=== PATIENT | female | born 1940 | race Caucasian/White ===

== ENCOUNTER 2019-08-21 08:06 | Outpatient (CLI) | payer MEDICARE, OTHER, SELFPAY ==
--- NOTE | 2019-08-21 08:15 | MM_ITS ---
WS: [id number] BILATERAL DIGITAL SCREENING MAMMOGRAPHY WITH CAD CLINICAL INFORMATION: SCREENING HISTORY: Screening mammogram. No current complaints. COMPARISON: August 01, 2018 TECHNIQUE: Bilateral CC and MLO views. FINDINGS: Scattered fibroglandular densities bilaterally. Lucent centered calcifications right breast. No suspi cious focal mass, asymmetry, calcifications, or architectural distortion. No evidence of malignancy. MM/[place] [id number] IMPRESSION: BI-RADS: 2-Benign FOLLOW UP: 1 Year Follow-up Recommend return to annual screening mammography.
== END 2019-08-21 08:07 | disposition home or self-care (01) ==
LOC: RADSHAW 08:13
PROVIDERS: Family Provider Family Medicine; PCP Family Medicine; Visit Provider Family Medicine
DX: Z12.31 Encounter for screening mammogram for malignant neoplasm of breast (principal)
CPT/HCPCS: 77067

== ENCOUNTER 2020-09-07 09:38 | Outpatient (CLI) | payer MEDICARE, OTHER, SELFPAY ==
--- NOTE | 2020-09-07 09:50 | XRR_ITS ---
PROCEDURE INFORMATION: Exam: XR Left Knee Exam date and time: 09/07/2020 9:59 AM Age: 79 years old Clinical indication: Pain; Knee; Bilateral; Additional info: Bilateral knee pain TECHNIQUE: Imaging protocol: XR Left knee. Views: 3 views. COMPARISON: CR Knee 3 views, LEFT* [id number] 04/24/2019 10:38 AM FINDINGS: Bones/joints: Severe degenerative change, preferentially involving the medial tibiofemoral joint. Intra-articular calcification. Soft tissues: Unremarkable. XR/XR knee LT 3V* [id number] IMPRESSION: Severe degenerative change, preferentially involving the medial tibiofemoral joint.
--- NOTE | 2020-09-07 09:50 | XRR_ITS ---
PROCEDURE INFORMATION: Exam: XR Right Knee Exam date and time: 09/07/2020 9:59 AM Age: 79 years old Clinical indication: Pain; Knee; Bilateral; Additional info: Bilateral knee pain TECHNIQUE: Imaging protocol: XR Right knee. Views: 3 views. COMPARISON: CR Knee 3 views, RIGHT* [id number] 04/24/2019 10:32 AM FINDINGS: Bones/joints: Severe degenerative change, preferentially involve the medial tibiofemoral joint. Soft tissues: Unremarkable. Other findings: Anatomic alignment. XR/XR knee RT 3V* [id number] IMPRESSION: Severe degenerative change, preferentially involve the medial tibiofemoral joint.
== END 2020-09-07 09:39 | disposition home or self-care (01) ==
PROVIDERS: PCP Family Medicine; Visit Provider Family Medicine
DX: M25.561 Pain in right knee (principal); M25.562 Pain in left knee
CPT/HCPCS: 73562

== ENCOUNTER → 2020-10-05 12:02 | Outpatient (BNVA) | payer MEDICARE, OTHER, SELFPAY | PROVIDERS: PCP Family Medicine; Referring Provider Family Medicine; Visit Provider Specialist | DX: M17.0 Bilateral primary osteoarthritis of knee (principal) | CPT/HCPCS: 73560; 73565 ==

== ENCOUNTER 2020-10-12 07:59 | Outpatient (CLI) | payer MEDICARE, OTHER, SELFPAY ==
--- NOTE | 2020-10-12 08:05 | MM_ITS ---
WS: [id number] BILATERAL SCREENING DIGITAL MAMMOGRAM WITH CAD HISTORY: SCREENING COMPARISON: 08/21/2019 and 08/01/2018 Bilateral CC and MLO views submitted. Computer aided detection analyzed. Breast composition: There are scattered areas of fibroglandular density. No suspicious masses, microc alcifications or architectural distortion. MM/[place] [id number] IMPRESSION: BI-RADS: 1-Negative FOLLOW UP: 1 Year Follow-up
== END 2020-10-12 08:00 | disposition home or self-care (01) ==
LOC: RADSHAW 08:01
PROVIDERS: PCP Family Medicine; Visit Provider Family Medicine
DX: Z12.31 Encounter for screening mammogram for malignant neoplasm of breast (principal)
CPT/HCPCS: 77067

== ENCOUNTER → 2020-10-13 08:12 | Day surgery (SDC) | payer MEDICARE, OTHER, SELFPAY | PROVIDERS: PCP Family Medicine; Visit Provider Specialist | DX: Z01.818 Encounter for other preprocedural examination (principal); M17.11 Unilateral primary osteoarthritis, right knee | CPT/HCPCS: 93005 ==

== ENCOUNTER → 2020-10-15 13:03 | Outpatient (BNVA) | payer MEDICARE, OTHER, SELFPAY | PROVIDERS: PCP Family Medicine; Visit Provider Specialist | DX: M17.11 Unilateral primary osteoarthritis, right knee (principal); Z20.822 Contact with and (suspected) exposure to COVID-19 | CPT/HCPCS: 87635 ==

== ENCOUNTER 2020-10-20 13:04 | Observation (INO) | payer MEDICARE, OTHER, SELFPAY ==
[2020-10-13 08:56] VITALS: BMI 29.7
--- NOTE | 2020-10-13 09:05 | ECG_ITS ---
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 Measurements Intervals [place] Rate: 58 P: 79 W[place]: 132 QRS: -4 QRSD: 88 T: 24 QT: 362 QTc: 356 Interpretive Statements SINUS BRADYCARDIA LOW QRS VOLTAGE IN PRECORDIAL LEADS [QRS DEFLECTION < 1.0 mV IN CHEST LEADS] POSSIBLE RIGHT VENTRICULAR CONDUCTION DELAY [RSR (QR) IN V1/V2] No previous ECG available for comparison Electronically Signed On 10-15-2020 21:18:48 CDT by Aster Negrete M.D. [id number]
[2020-10-13 09:15] LABS: Basophils # 0.1 10^3/uL (0.0-0.1); Basophils % 1.1 %; Eosinophils # 0.1 10^3/uL (0.0-0.8); Eosinophils % 1.2 %; Hematocrit 33.9 % (37.0-47.0); Hemoglobin 10.6 g/dL (11.5-15.3); Lymphocytes # 1.7 10^3/uL (0.8-4.8); Lymphocytes % 30.4 %; Mean Corpuscular HGB Conc 31.3 g/dL (30.0-36.0); Mean Corpuscular Hemoglobin 30.5 pg (28.0-34.0); Mean Corpuscular Volume 97.7 fL (81-99); Mean Platelet Volume 10.4 fL (7.4-10.4); Monocytes # 0.4 10^3/uL (0.2-0.9); Monocytes % 7.2 %; Neutrophils # 3.41 10^3/uL (1.8-7.7); Neutrophils % 59.7 %; Nucleated Red Blood Cells % 0 %; Platelet Count 237 10^3/cmm (130-400); Red Blood Count 3.47 10^6/uL (4.1-5.3); Red Cell Distribution Width 12.7 % (12.1-15.1); White Blood Count 5.7 10^3/uL (4.0-10.0)
[2020-10-13 09:35] LABS: Alanine Aminotransferase 11 U/L (0-33); Albumin Level 4.5 g/dL (3.5-5.2); Alkaline Phosphatase 39 IU/L (35-105); Anion Gap 13.5 (5-19); Aspartate Amino Transferase 14 U/L (0-32); Blood Urea Nitrogen 33 mg/dL (8-23); Calcium 8.9 mg/dL (8.5-10.5); Carbon Dioxide 26 mmol/L (22-29); Chloride 102 mmol/L (98-107); Glucose 116 mg/dL (65-115); Osmolality Calculated 292 mOsm/kg (285-295); Potassium 4.5 mmol/L (3.5-5.1); Sodium 137 mmol/L (136-145); Total Bilirubin 0.3 mg/dL (0.15-1.2); Total Protein 7.5 g/dL (6.6-8.7)
--- NOTE | 2020-10-13 09:44 | ANES.PREANE2 ---
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 Social: Social History: No alcohol and No tobacco Exam: Pre-Anes Outpt Exam: alert, oriented x 3, clear to auscultation bilaterally and regular rate & rhythm Airway: Cervical ROM: WNL MP: 3 Dentition: Partials and Other (missing teeth) Metabolic: Metabolic: DM (off metformin now, but continuing lisinopril for kidneys) Anesthetic Plan: ASA status: 2 Anesthesia: Regional (specify below) Risk of > 500 ml blood loss (7ml/kg in children): No PFSH Anesthesia PFSH: Family History Mother Cancer Father Cancer Social History Smoking and tobacco status: never smoked Alcohol intake: never Data Anesthesia CBC & Chem 7: 10/13/20 09:00 10/13/20 09:00 Other Labs: Laboratory Results - last 48 hr 10/13/20 10/13/20 09:00 09:00 WBC 5.7 RBC 3.47 L Hgb 10.6 L Hct 33.9 L MCV 97.7 MCH 30.5 MCHC 31.3 RDW 12.7 Plt Count 237 MPV 10.4 Neut % (Auto) 59.7 Lymph % (Auto) 30.4 [place] % (Auto) 7.2 Eos % (Auto) 1.2 Baso % (Auto) 1.1 Neut # (Auto) 3.41 Lymph # (Auto) 1.7 [place] # (Auto) 0.4 Eos # (Auto) 0.1 Baso # (Auto) 0.1 Nucleated RBC % (auto) 0 Nucleated RBCs # 0.0 Sodium 137 Potassium 4.5 Chloride 102 Carbon Dioxide 26 Anion Gap 13.5 BUN 33 H Creatinine 1.0 H GFR Calculation Not Reportable Glucose 116 H Calculated Osmolality 292 Calcium 8.9 Total Bilirubin 0.3 AST 14 ALT 11 Alkaline Phosphatase 39 Total Protein 7.5 Albumin 4.5 Globulin 3.0 Cardiac Studies: No Data to Display
[2020-10-13 09:46] LABS: Add Urine Microscopic? NO; Charge for UA Resulting for Rev
[2020-10-13 10:11] LABS: Bilirubin Urine 1+ (Negative); Blood Urine Neg (Negative); Glucose Urine UA Norm (Normal); Ketones Urine Negative (Negative); Leukocyte Esterase Urine Negative (Negative); Nitrate Urine Negative (Negative); Protein Urine Neg (Negative); Specific Gravity, Urine 1.015 (1.005-1.030); Urine Appearance Clear (CLEAR); Urine Color Yellow (Yellow); Urobilinogen Urine 1 mg/dL (Negative); pH Urine 5 (5-7)
[2020-10-20] VITALS (16 sets, daily range): BP systolic 117–147; BP diastolic 66–114; PULSE 61–97; RESP 16–18; TEMP 36.1–36.7; O2SAT 93–100
[2020-10-20 08:37] LABS: Glucose Point of Care 92 mg/dL (70-110)
[2020-10-20] MEDS: acetaminophen 1,000 MG/100 ML PIGGYBACK 400 MG IV ×3 (08:39→21:07)
[2020-10-20] MEDS: sodium chloride 0.9% 1,000 ML 30 ML IV (08:39)
--- NOTE | 2020-10-20 08:47 | P.ANESUD_ITS ---
Pre-Anesthetic Update Pre-Anesthetic Assessment: Date of Surgery/Procedure: 10/20/20 Preop Sarah gnosis: Osteoarthritis right knee Proposed Procedure: Operation Date: 10/20/20 10:15 Proposed Procedures p Total Knee Arthroplasty 08390 M17.10(Right) - Susan Salas MD Any changes to Pre-Anesthetic Assessment?: No Last Intake: Intake Last Liquid Date 10/19/20 Last Liquid Time 22:00 Last Solid Date 10/19/20 Last Solid Time 22:00 Labs Last 48hrs: Laboratory Results - last 48 hr 10/20/20 08:34 POC Glucose 92 Vitals: Temperature 97.9 F 10/20/20 08:14 Temperature Source Temporal Artery S can 10/20/20 08:14 Pulse Rate 61 10/20/20 08:14 Respiratory Rate 18 10/20/20 08:14 Blood Pressure 138/114 10/20/20 08:14 Blood Pressure Cecy n 122 10/20/20 08:14 Pulse Oximetry 99 10/20/20 08:14 Oxygen Delivery Me thod 10/20/20 08:14 Exam: Pre-Anes Outpt Exam: alert, oriented x 3, clear to auscultation bilaterally and regular rate & rhythm Cardiac Studies: No Data to Display
[2020-10-20] MEDS: vancomycin 1,000 MG in sodium chloride 0.9% 250 ML 250 MG IV (08:48)
--- NOTE | 2020-10-20 10:15 | W.PM.OPSUD ---
Surgery/Procedure H&P Update DATE OF PROCEDURE: October 20, 2020 DATE H&P PERFORMED: 10/05/20 H&P UPDATE INFORMATION: I have reviewed H&P completed within last 30 days, I have examined patient prior to procedure, No changes to prior documentation and H&P is in [facility] [place] [place] EMR on date indicated PREOP DIAGNOSIS: Osteoarthritis right knee PLANNED PROCEDURE: Operation Date: 10/20/20 10:15 Proposed Procedures p Total Knee Arthroplasty 45468 M17.10(Right) - Susan Salas MD Related Problem List Diagnoses (1) Primary osteoarthritis of right knee:
[2020-10-20] MEDS: CELEcoxib 200 mg Capsule 400 MG PO (10:17)
[2020-10-20] MEDS: vancomycin 1,000 MG SDV 2000 MG IRRIGATION (11:39)
[2020-10-20] MEDS: vancomycin 1,000 MG SDV 1000 MG XX (11:39)
--- NOTE | 2020-10-20 13:32 | XRR_ITS ---
PROCEDURE INFORMATION: Exam: XR Right Knee Exam date and time: 10/20/2020 1:42 PM Age: 80 years old Clinical indication: Device placement; Joint replacement hardware; Prior surgery; Surgery date: Post-operative (0-2 days); Surgery type: Right total knee; Additional info: Status post right total knee TECHNIQUE: Imaging protocol: XR Right knee. Views: 1 or 2 views. COMPARISON: CR XR knees AP WB w BI lmt ORTH 10/05/2020 12:08 PM FINDINGS: Bones/joints: Anatomic alignment of right knee arthroplasty. Soft tissues: Postoperative skin darrion, subcutaneous emphysema, and intra-articular air. XR/XR knee RT 1-2V [id number] IMPRESSION: Anatomic alignment of right knee arthroplasty.
--- NOTE | 2020-10-20 13:33 | PM.OP ---
Operative Report Date of procedure: October 20, 2020 Pre-op Diagnosis: Osteoarthritis right knee Post-op diagnosis: same Post-op Findings: Severe degenerative osteoarthritis right knee with out flexion contracture Procedure Done: Right total knee arthroplasty Implants: The Meir total knee system with a size 4 triathlon beaded posterior stabilized femur right, a triathlon titanium tibial component size 5 beaded, a triathlon X3 posterior stabilized tibial bearing insert size 5 X 13 mm and a beaded triathlon titanium asymmetric patella size 32 x 10 mm Specimens removed/disposition: Bone, disposed of Pathology: none sent Surgeon: Susan Salas Pattern Chain Builder: [facility] operating room technicians Anesthesia: MAC (With spinal and femoral block, ASA 2) Estimated blood loss (mL): 25 Tourniquet time (min): 99 Tourniquet time: At 275 mmHg IV fluids (mL): 1,400 Urine output (mL): 275 Complications: None Findings: Severe degenerative osteoarthritis primarily involving the medial compartment, but with change in all 3 compartments and complete lack of cartilage medially. No flexion contracture was noted. Condition: stable Disposition: PACU (Then to floor for postoperative rehabilitation and monitoring under observation status) Brief History: This 80-year-old woman presented to the office with severe right knee pain which was incapacitating. She was unable to ambulate or perform reasonable activities of daily living. None of these activities were able to be accomplished comfortably. She was unresponsive to conservative measures and wished to proceed with right total knee arthroplasty risks and complications were discussed. Consents were signed preoperatively, and questions were answered. The patient wished to proceed. Procedure: The patient was brought to the operating theater, and after undergoing adequate spinal anesthesia supplemented with regional block and sedation, ASA 2, the right lower extremity was prepped with Dura-Prep and draped in usual fashion following placement of a tourniquet high on the leg. The leg was then draped free. Following prepping and draping, the leg was exsanguinated, and the tourniquet was elevated to 275 mmHg for a total tourniquet time of 99 minutes. Prior to elevation of the tourniquet, but following exposure of the site of surgery, a surgical pause was performed. At the time of the surgical pause, we confirmed the site and side of surgery. Additionally, we confirmed the appropriate and timely administration of preoperative antibiotics, vancomycin 1 g. and Transexemic acid 1 g. The availability of equipment was confirmed, and the patient's identity was verbalized as well. Following the surgical pause, an incision was made centering over the patella continuing proximally and distally as necessary to allow access to the knee joint. Dissection continued through skin and soft tissues using a scalpel. Hemostasis was obtained using electrocautery. The skin incision was followed by a median parapatellar arthrotomy. The leg was extended and the patella was everted. Following this, the leg was returned to flexed position. The distal femur was exposed, and a drill hole was made in this for placement of the distal femoral jig. The distal femoral jig was set at 5? of valgus. The distal femoral cutting block was then placed in appropriate position, and an elly wing was used to confirm an appropriate amount of distal femur would be resected. The distal femoral resection was accomplished with 8 mm of bone being resected distally. After the distal femoral resection had been accomplished, the femur was measured and it measured a size 5. Medial lateral dimension measured a size 4. An anterior step block was utilized to move the center of rotation anteriorly. This allowed us to fit a size 4 and an AP plane as well as the medial lateral. It was felt that a size 5 would be oversized for this patient. A size 4 femoral cutting block was placed in position, and we were then able to accomplish the anterior, posterior and chamfer cuts. This jig was then removed and the notch guide was placed in position. With the notch guide in appropriate position, the notch was excised including resection of the anterior and posterior cruciate ligaments. This notch was to allow for the posterior stabilized femoral component. At this point, the femur was prepared and attention was directed to the proximal tibia. The posterior knee retractor was placed along with medial and lateral retractors. Further resection of the menisci was accomplished as we had better visualization. A complete meniscectomy was performed both medially and laterally with care being taken to protect the popliteus. Retractors were then placed so that the proximal tibia was well visualized. A drill hole was then made in the tibia for placement of the intramedullary guide. This guide was placed so that approximately 2 mm of bone would be resected from the deficient medial tibial plateau. The intramedullary guide was utilized supplemented with an extramedullary guide to assure appropriate alignment for the proximal tibial resection. The proximal tibial jig was then evaluated, pinned in position, and the proximal tibial resection was accomplished without difficulty. The jig was removed, and the proximal tibia was measured. It measured a size 5. We then attempted a trial reduction with a size 5 by 11 mm insert. Osteophytes were also removed from the tibia. The femoral component was placed in position for the trial reduction, and the knee was placed through range of motion. With this, there was excellent stability with excellent varus-valgus alignment with appropriate patellar tracking. Extension was noted to be full as well. After the knee was manipulated, we were able to insert a size 5 x 13 mm insert. With this we continued to have excellent varus valgus alignment and full extension. Therefore, this was the chosen component. There was full extension and flexion without lift off and the rotation of the tibia was marked. Alignment was checked from the hip to the ankle, and this was noted to be appropriate as well. Attention was then directed to the patella. The patella was measured with a caliper. We resected sufficient patella to leave approximately 14 mm of patella remaining. Measurements of the patella then indicated that a size asymmetric 32 mm x 10 mm was the appropriate patellar size. We then placed the jig to drill for the 3 pegs of the press-fit patella, and these drill holes were made without incident. A trial patella was then placed, and the knee was placed through range of motion. The patella was noted to track nicely without evidence of subluxation. The femur was prepared for a press-fit femur by drilling 2 holes for the femoral pegs. All trial components were subsequently removed. The tibial tray was then pinned into position, and we broached the tibia for the stem of the tibial component. Subsequently, 4 drill holes were made for placement of the press-fit tibia. This was accomplished without difficulty. Care was taken to assure appropriate rotation of the tibia as well as appropriate position on the proximal tibia. The tibial tray was completely seated on the proximal tibia. Following broaching, the tibial guide was removed, and all surfaces were copiously irrigated. The surfaces were then dried and a bone plug was placed into the distal femur. Exparel was also injected at this point. The Tritanium tibia was impacted into position. The beaded femur was then impacted into position in a cementless fashion. The tibial insert was placed. The patella was pressed into position with a patellar clamp. The knee was irrigated with 20 mL of Betadine and 500 mL of normal saline, and this was allowed to remain in the knee for 3-4 minutes. The knee was then copiously irrigated and suctioned dry. Attention was then directed to closure. Closure was accomplished with 0 Vicryl in the fascial tissues. Following this, a 2-0 Monocryl was used in the subcutaneous tissues, and the skin was closed with skin darrion. A sterile dressing was then placed consisting of Dermabond Prineo, opsite, 4x4's, ABD, sterile soft roll, and an Rogers wrap. The patient was returned the Recovery Room in a satisfactory condition. X-rays were obtained there. The patient will be discharged to the floor for postoperative rehabilitation and pain management. Associated Problem List Diagnoses (1) Primary osteoarthritis of right knee:
--- NOTE | 2020-10-20 13:37 | ANES.PROC ---
Anesthesia Procedures Procedure/Date: 10/20/20 Nerve Block ^: Nerve Block 1: Main Anesthesia: spinal anesthesia block Consent: requested by attending/covering physician, risks and benefits reviewed and patient agrees to proceed Nerve block location: adductor canal Anesthesia monitors applied: pulse oximetry, EKG, BP cuff and oxygen Nerve block position: supine Anesthetic Used: ropivicaine 0.5% Amount of anesthesia used (mL): 20 Ultrasound used to: recognize landmarks and visualize and ID femerol nerve Nerve Stimulator Used?: No Interscalene/Femoral BLK: 4 stimuplex 21 g needle used for position and inplane approach and no vascular puncture identified Injection: neg aspiration of heme Patient Tolerated Procedure: well and no complications Complications: none
--- NOTE | 2020-10-20 13:39 | ANE.PACU2 ---
Inpatient post-anesthesia follow up: Airway intact: Yes Vital signs: Temperature 97.9 F Pulse Rate 61 Respiratory Rate 18 Blood Pressure 138/114 Pulse Oximetry 99 Oxygen Delivery Me thod Room Air Oxygen Flow Rate Fraction of Inspir ed Oxygen Hydration adequate: Yes Nausea and vomiting: No Pain level: 1 Mental status: Baseline
--- NOTE | 2020-10-20 13:43 | SUR.PHASEI ---
PT AWAKE ALERT TALKATIVE TAKING ICE CHIPS PT SHIVERS OCCASIONALLY, WARM BLANKETS X 3 TO PT . PT STATES SHE ALSO HAS TREMORS VSS RT KNEE DRESSING D/I WITH STRONG REGULAR PULSE NOTED TO DISTAL FOOT , FOOT PINK WARM , FOOT PUMP TO LT FOOT. [place] TO DD WITH STATLOCK TO LT THIGH YELLOW URINE NOTED TO TUBING AND BAG., X RAYS DONE AT BEDSIDE.
[2020-10-20] MEDS: lactated ringers 1,000 ML 100 ML IV (14:46)
[2020-10-20] MEDS: TRAMadol 50 mg Tablet PO (15:42)
[2020-10-20] MEDS: chlorhexidine gluconate 0.12% Btl 473 mL 30 ML MUCOUS MEM ×2 (16:46→21:04)
[2020-10-20] MEDS: oxyCODONE 5 mg IR Tab/Cap PO ×2 (16:46→20:57)
[2020-10-20] MEDS: sennosides-docusate Tablet 2 TAB PO (16:46)
[2020-10-20] MEDS: calcium carbonate 500 mg Chew Tablet 1000 MG PO (16:47)
--- NOTE | 2020-10-20 18:25 | PC.NURSE ---
SHIFT SUMMARY PATIENT HAS DONE WELL SINCE ARRIVING TO THE FLOOR FROM THE OR. VITALS STABLE. PATIENT ON ROOM AIR. PAIN CONTROLLED WITH ORAL PAIN MEDICATION. PATIENT SAT ON EDGE OF BED WITH PHYSICAL THERAPY AND BECAME DIZZY. BP CHECKED AND WAS 120'S/60'S. LAID PATIENT BACK DOWN. ASYMPTOMATIC AT THIS TIME. FLUIDS RUNNING. PATIENT TOLERATING DIET. CURRENTLY ON THE CPM. GOOD URINE OUTPUT. NO COMPLAINTS.
[2020-10-21] VITALS (8 sets, daily range): BP systolic 106–132; BP diastolic 63–73; PULSE 59–78; RESP 14–16; TEMP 37.1–37.3; O2SAT 95–96
[2020-10-21] MEDS: oxyCODONE 5 mg IR Tab/Cap PO ×3 (00:10→12:11)
[2020-10-21] MEDS: lactated ringers 1,000 ML 100 ML IV ×2 (00:50→10:22)
[2020-10-21 02:33] LABS: Basophils % 0.5 %; Eosinophils # 0.1 10^3/uL (0.0-0.8); Eosinophils % 0.9 %; Hematocrit 26.5 % (37.0-47.0); Hemoglobin 8.4 g/dL (11.5-15.3); Lymphocytes # 1.6 10^3/uL (0.8-4.8); Lymphocytes % 27.2 %; Mean Corpuscular HGB Conc 31.7 g/dL (30.0-36.0); Mean Corpuscular Hemoglobin 31.1 pg (28.0-34.0); Mean Corpuscular Volume 98.1 fL (81-99); Mean Platelet Volume 10.2 fL (7.4-10.4); Monocytes # 0.6 10^3/uL (0.2-0.9); Monocytes % 9.6 %; Neutrophils # 3.53 10^3/uL (1.8-7.7); Neutrophils % 61.5 %; Nucleated Red Blood Cells % 0 %; Platelet Count 180 10^3/cmm (130-400); Red Cell Distribution Width 12.9 % (12.1-15.1); White Blood Count 5.7 10^3/uL (4.0-10.0)
[2020-10-21 02:51] LABS: Anion Gap 10.1 (5-19); Blood Urea Nitrogen 22 mg/dL (8-23); Calcium 7.8 mg/dL (8.5-10.5); Carbon Dioxide 24 mmol/L (22-29); Chloride 108 mmol/L (98-107); Glucose 137 mg/dL (65-115); Osmolality Calculated 291 mOsm/kg (285-295); Potassium 4.1 mmol/L (3.5-5.1); Sodium 138 mmol/L (136-145)
[2020-10-21] MEDS: acetaminophen 1,000 MG/100 ML PIGGYBACK 400 MG IV (05:36)
--- NOTE | 2020-10-21 09:59 | PC.CHAP ---
Pastoral Care Encounter/Spiritual Assessment Type of Contact [] Declined jd edwards consultant visit [] Patient/Family/Request visit [] Outpatient visit [] Follow-up visit [] Physician referral [] Code/Alert [x] Routine visit [] Staff referral [] Actively dying [] Patient sleeping [] Family support [] [] Out of room [] Palliative care [] [] Receiving care in room [] Pre-surgical visit [] Trauma [] Long length of stay [] ICU visit [] Other: Relational/Emotional Strength [x] Patient feels connected with others/family/visitors/staff [] Distress [] Loneliness/isolation [] Abandonment Spirituality of Patient [x] Person of Juliana [x] Attends Mormon of their Juliana [x] Believes in Prayer [] Reads Bible or Uatsdin materials [] There are Spiritual issues to be addressed Design Coordinator Interventions [x] Prayer [x] Active listening [x] Non-anxious presence [x] Spiritual/emotional support [] Crisis/trauma care [] Spiritual counseling [] Bereavement support [] Provided bereavement packet [] Provided Bible/devotional materials [] Provided toy/stuffed animal, coloring book to patient or family member [] Provided Communion [] Anointing/[place] [] Salvation [x] Completed spiritual assessment [] Other: Impact on Illness or Injury [] Angry [] Fearful [] Anxious [] Often cries [] Exhaustion [] Unable to work [] Unable to attend rastafarian [] Unable to walk/stand [] Unable to read [] Unable to drive [] Unable to eat/drink [] Unable to sleep [] Unable to be with family [] Patient intubated [] Other: Summary Time spent with patient 15 min
[2020-10-21] MEDS: vancomycin 1,000 MG in sodium chloride 0.9% 250 ML 250 MG IV (10:13)
[2020-10-21] MEDS: calcium carbonate 500 mg Chew Tablet 1000 MG PO (10:15)
[2020-10-21] MEDS: aspirin 325 mg EC Tablet PO (10:16)
[2020-10-21] MEDS: multivitamin therapeutic Tablet 1 TAB PO (10:16)
[2020-10-21] MEDS: levothyroxine 75 mcg Tablet PO (10:17)
[2020-10-21] MEDS: iron polysaccharide complex 150 mg Capsule PO (10:18)
[2020-10-21] MEDS: cholecalciferol (vitamin D3) 1,000 unit Tablet 1000 UNIT PO (10:18)
[2020-10-21] MEDS: sennosides-docusate Tablet 2 TAB PO (10:19)
[2020-10-21] MEDS: CELEcoxib 200 mg Capsule PO (10:21)
[2020-10-21] MEDS: lisinopril 10 mg Tablet PO (10:22)
[2020-10-21] MEDS: sertraline 50 mg Tablet PO (10:23)
[2020-10-21] MEDS: TRAMadol 50 mg Tablet PO ×2 (10:23→14:30)
[2020-10-21] MEDS: chlorhexidine gluconate 0.12% Btl 473 mL 30 ML MUCOUS MEM (10:25)
[2020-10-21] MEDS: mupirocin oint 22 gm 1 APPLIC NASAL (10:25)
--- NOTE | 2020-10-21 13:21 | PM.DCS ---
Discharge Providers Date of Admission: 10/20/20 13:04 Date of Discharge: October 21, 2020 Attending Provider at Admission: Susan Salas MD Attending Provider at Discharge: Susan Salas MD Primary Care Provider: Jas Kc DO Diagnoses at Discharge Discharge Diagnosis (1) Primary osteoarthritis of right knee: Status: Acute (2) Status post total right knee replacement not using cement: Status: Acute Permanent problem details: The Meir total knee system with a size 4 triathlon beaded posterior stabilized femur right, a triathlon titanium tibial component size 5 beaded, a triathlon X3 posterior stabilized tibial bearing insert size 5 X 13 mm and a beaded triathlon titanium asymmetric patella size 32 x 10 mm Reason for Visit Reason for Visit: Right knee osteoarthritis Hospital Course Hospital Course This 80-year-old woman presented to the hospital yesterday for same-day right total knee arthroplasty. She had been seen preoperatively in the office and prepared for the surgical procedure. Risks and complications as well as expectations have been discussed at length were understood. The patient wished to proceed. She underwent uneventful right total knee arthroplasty and was brought to the surgical floor following her procedure for postoperative monitoring and pain management. On the first postoperative day, the patient was comfortable. She had minimal complaints of pain which were well managed by oral pain medications. Her dressings were removed. Her wound was benign. There was no evidence of DVT. The calf was soft. She was neurologically intact and able to lift her leg comfortably. Discussion was undertaken with the patient regarding postoperative plan, and she was in agreement with being discharged home. Physical Exam Const: COMMON NORMALS: no acute distress, average body habitus, patient oriented x3 and alert GENERAL APPEARANCE: cooperative and comfortable ORIENTATION/CONSCIOUSNESS: Yes awake HENMT: COMMON NORMALS: normocephalic and atraumatic HEAD & SCALP: normocephalic and atraumatic Eye: GENERAL EYE: appearance normal, both eyes and all related structures Chest: COMMONS NORMALS: normal inspection of the chest Resp: COMMON NORMALS: normal respiratory effort EFFORT & INSPECTION: Yes able to speak in complete sentences and Yes symmetric chest movement Extremity: RIGHT LOWER EXTREMITY: Yes knee joint Right knee: Yes inspection (The wound is benign. Dressing is intact and removed. No drainage), Yes palpation (No tenderness to palpation over the calf.), Yes ROM (Not evaluated), Yes neurovascular exam (Intact) and Yes other (No evidence of DVT) Neuro: COMMON NORMALS: patient oriented x3 SENSORIUM/ORIENTATION: Yes alert Psych: COMMON NORMALS: mental status grossly normal APPEARANCE: Yes grossly normal ATTITUDE: Yes calm and Yes engaged ATTENTION/CONCENTRATION: Yes attention grossly intact Skin: COMMON NORMALS: no rashes or lesions noted GENERAL SKIN EXAM: no rashes or lesions noted Urinary Catheter Management^: F: Cath Placed During This Visit: yes, but has since been removed by the nurse Reason for Continuing Indwelling Catheter: Decision to DC Catheter Urinary Catheter Date of Insertion: 10/20/20 Urinary Catheter Time of Insertion: 11:00 Date Urinary Catheter Removed: 10/21/20 Time Urinary Catheter Discontinued: 05:50 Discharge Data Data Completed and Pending: Completed Studies During Hospitalization Category Date Time Status XR knee RT 1-2V 7 3560 Urgent Exams 10/20/20 13:32 Completed Pending at discharge Category Date Time Status Complete Blood Co unt w/Auto AM LABS Lab 10/22/20 04:00 Ordered Complete Blood Co unt w/Auto AM LABS Lab 10/23/20 04:00 Ordered Labs from last 24 hours 10/21/20 10/21/20 02:08 02:08 WBC 5.7 RBC 2.70 L Hgb 8.4 L Hct 26.5 L MCV 98.1 MCH 31.1 MCHC 31.7 RDW 12.9 Plt Count 180 MPV 10.2 Neut % (Auto) 61.5 Lymph % (Auto) 27.2 [place] % (Auto) 9.6 Eos % (Auto) 0.9 Baso % (Auto) 0.5 Neut # (Auto) 3.53 Lymph # (Auto) 1.6 [place] # (Auto) 0.6 Eos # (Auto) 0.1 Baso # (Auto) 0.0 Nucleated RBC % (a uto) 0 Nucleated RBCs # 0.0 Sodium 138 Potassium 4.1 Chloride 108 H Carbon Dioxide 24 Anion Gap 10.1 BUN 22 Creatinine 0.9 GFR Calculation Not Reportable Glucose 137 H Calculated Osmolal ity 291 Calcium 7.8 L Vitals: Last Vital Signs Temp 99.0 F 10/21/20 10:42 Pulse 78 10/21/20 10:42 Resp 14 10/21/20 12:11 BP 132/73 10/21/20 10:42 Pulse Ox 95 10/21/20 12:11 Discharge Plan Discharge Patient Disposition: Home Health Service Condition: Stable Prescriptions: New acetaminophen 500 mg Tablet 1,000 mg PO Q8H 15 Days Qty: 90 RF: 0 aspirin 325 mg Tablet,Delayed Release (Dr/Ec) 325 mg PO BID 30 Days Qty: 60 RF: 0 oxycodone 5 mg Tablet 5 mg PO Q4H PRN (Reason: Moderate Pain) 7 Days Qty: 40 RF: 0 Continued levothyroxine 75 mcg capsule 75 mcg PO DAILY RF: 0 lisinopril 10 mg tablet 10 mg PO DAILY RF: 0 sertraline 50 mg tablet 50 mg PO DAILY PRN (Reason: Anxiety) RF: 0 alprazolam 0.5 mg tablet 0.5 mg PO DAILY PRN (Reason: Anxiety) RF: 0 Multivitamin Women 50 Plus 8 mg iron-400 mcg-300 mcg Tablet 1 tab PO DAILY RF: 0 Celebrex 200 mg capsule 200 mg PO BID Qty: 60 RF: 1 Held acetaminophen 650 mg Tablet Extended Release 650 mg PO Q12H RF: 0 Hold Instructions: Resume on 11/07/20. Discharge Orders: Discharge Order (Routine); Ordered 10/21/20 Ordered By: Susan Salas Other Ambulatory Orders: DME: Miscellaneous (Order) Location: None Selected Ordered By: Susan Salas DME: Walker (Order) Location: None Selected Ordered By: Susan Salas Referrals: Susan Salas MD [Physician] - 11/02/20 9:15 am Discharge Diet: Advance as tolerated and Usual diet Discharge Activity: Increase activity as tolerated, Limit activity as instructed, Use walker/crutches as instructed and As per PT/OT instructions Patient Instructions: Opioid Safety Activity Restrictions/Additional Instructions: Range of motion and strengthening per physical therapy. Weightbearing as tolerated. You may shower with clear plastic dressing in place. Discharge Attestations Time Spent in Discharge Care*: greater than 30 min Specific Discharge Activities: educating patient, educating and/or supporting family/caregiver, documenting/other paperwork and evaluating patient/reviewing data Quality Metrics Clinical Quality Measures During this hospital stay, did patient experience: None Coding Level of Care Code Acute Chg FW ID note Diagnoses Primary osteoarthritis of right knee M17.11 Status post total right knee replacement not using cement Z96.651
--- NOTE | 2020-10-21 15:22 | PC.NURSE ---
PT HAS DONE WELL TODAY. PT HAS BEEN UP TO THE CHAIR AT LEAST THREE TIMES TODAY. PT HAS HAD SOME COMPLAINTS OF PAIN. TRAMADOL PO AND OXYCODONE PO HAVE BOTH BEEN GIVEN TO THE PT. PT HAS TOLERATED FOOD WELL. IV WAS REMOVED, CATHETER TIP INTACT, NO BLEEDING. PT TOLERATED IV REMOVAL WELL. PT WAS GIVEN TRAMADOL RIGHT BEFORE SHE LEFT. PTS MEDS WERE CALLED TO THE IN PATIENT PHARMACY AND PT REQUESTED THAT THEY JUST GO TO THE PHARMACY AND UNDER PRESSER THE MEDICATIONS. THIS NURSE CALLED THE IN PATIENT PHARMACY AND LET THEM KNOW THE PT WOULD BE THERE TO UNDER PRESSER HER MEDS. DISCHARGE PACKET WAS GONE OVER WITH PT. NO QUESTIONS WERE ASKED. PT WHEELED AT TO FRIEND'S VEHICLE.
== END 2020-10-21 15:31 | disposition home health service (06) ==
LOC: OR 13:45 → MEDSURG 14:16
PROVIDERS: Admitting Provider Specialist; PCP Family Medicine; Visit Provider Specialist
PROC: (CPT 27447; principal; 2020-10-20 09:55)
DX: M17.11 Unilateral primary osteoarthritis, right knee (principal); E11.9 Type 2 diabetes mellitus without complications
CPT/HCPCS: 27447; 36415; 36416; 73560; 80048; 80053; 81003; 82962; 85025; 96365; 97110; 97116; 97161; 97165; 97530; C1713; C1776; C9290; G0378; J2250; J2370; J2704; J2795; J3010; J3370; J3490; J7030; J7050

== ENCOUNTER → 2020-11-02 10:17 | Outpatient (BNVA) | payer MEDICARE, OTHER, SELFPAY | PROVIDERS: PCP Family Medicine; Visit Provider Specialist | DX: Z96.651 Presence of right artificial knee joint (principal) | CPT/HCPCS: 73560; 73565 ==

== ENCOUNTER 2020-11-02 12:48 | Day surgery (SDC) | payer MEDICARE, OTHER, SELFPAY ==
[2020-11-02] VITALS (15 sets, daily range): BP systolic 123–167; BP diastolic 51–93; PULSE 69–127; RESP 12–101; TEMP 36.2–36.8; O2SAT 96–100
--- NOTE | 2020-11-02 13:04 | ED_ITS ---
HPI - Extremity Problem General: Chief complaint: Recheck/Abnormal Lab/Rx Stated complaint: RUPTURE SUTURE R LEG Time Seen by Provider: 11/02/20 13:04 Source: patient Mode of arrival: wheelchair Limitations: no limitations History of Present Illness: HPI Narrative: Patient is a 80-year-old female who presents to ED today for a complaint of right knee wound dehiscence. She unde rwent a total right knee replacement by Dr. Salas on 10/20. Patient saw Dr. Salas earlier this morning and was doing well. Surgical incision was healing well and looked clean. Duc were removed and wound was Steri-Stripped. Patient tells me she went home and was walking up her porch when she tripped on the lip of the stair and fell onto her right knee. She states she busted open her surgical incision. No other injury sustained during the fall. MD Complaint: other (surgical wound dehiscence ) Onset (ago): hour(s) Location: right and lower extremity Associated symptoms: Reports no associated symptoms; Deny chest pain or fever(s) Review of Systems Const: Denies: fever(s) Eyes: Denies: change in vision Card: Denies: chest pain Resp: Denies: dyspnea GI: Denies: abdominal pain, nausea or vomiting Musc: Reports: joint pain (R knee); Denies: neck pain, back pain or extremity pain Skin/Breast: Reports: other (wound dehiscence to right knee) Neuro: Denies: headache(s) or sensory changes PFSH ED PFSH: Family History Mother Cancer Father Cancer Social History Smoking and tobacco status: never smoked Alcohol intake: never Physical Exam Const: COMMON NORMALS: no acute distress, patient oriented x3, no limitations and alert GENERAL APPEARANCE: cooperative NUTRITIONAL APPEARANCE: overweight ORIENTATION/CONSCIOUSNESS: Yes awake, Yes oriented to person, Yes oriented to place and Yes oriented to time HENMT: COMMON NORMALS: normocephalic and atraumatic HEAD & SCALP: normocephalic and atraumatic Neck/C-Spine: COMMON NORMALS: full ROM CERVICAL SPINE: Yes cervical ROM normal, No pain with cervical ROM and No Cervical spine tenderness Resp: COMMON NORMALS: normal respiratory effort Back/Pelvis: COMMON NORMALS: thoracic and lumbar spine normal to inspection, no thoracic nor lumbar tenderness and thoraco-lumbar ROM normal Extremity: NARRATIVE EXTREMITY EXAM: patient has complete wound dehiscence to about 75% of her R knee surgical site Neuro: CHRISTOPHE COMA SCALE: document GCS findings Christophe coma scale eye opening: Spontaneous Christophe coma scale verbal response: Orientated [place] coma scale motor response: Obey commands Christophe coma scale total score: 15 COMMON NORMALS: patient oriented x3, CN's II-XII intact bilaterally, moves all extremities, no focal motor deficits and no sensory deficits noted SENSORIUM/ORIENTATION: Yes alert, Yes oriented to person, Yes oriented to place and Yes oriented to time GAIT: Yes Unable to assess gait Skin: NARRATIVE SKIN EXAM: see extremity assessment Course Consultations: Consultation #1: Dr. Salas-will take patient to surgery after she finishes with clinic, she will place surgery/pre op orders, does not want patient admitted to hospital-will go to outpt surgery or straight to pre-op and she will go home directly following the surgery Vital Signs: Vital signs: Vital Signs Temperature 98.2 F 11/02/20 12:48 Pulse Rate 71 11/02/20 12:48 Respiratory Rate 18 11/02/20 12:48 Blood Pressure 167/64 11/02/20 12:48 Pulse Oximetry 99 11/02/20 12:48 MDM - Extremity (Nontraumatic) Imaging Data^: XR R knee: Radiologist's impression: [address] [address] XRay Report Signed Patient: Priscila Gallegos Unit #: [id number] : 1940 Age/Sex: 80 / F ADM Date: 11/02/20 Loc: ER Room/Bed: Attending Dr: Ordering Provider/Ordering MD: Feli Hodge Date of Service: 11/02/20 Procedure(s): XR knee RT 3V* 76558 Accession Number(s): [id number] Report Number: [id number] WS: [id number] Exam: XR knee RT 3V* [id number] Date/Time of Exam: 11/02/2020 1:26 PM Reason For Exam: trauma/fall Comparison 11/02/2020. No acute fracture or dislocation noted. A total knee replacement is intact without evidence of fracture or loosening. There appears to be a soft tissue laceration along the medial aspect of the knee with soft tissue air. There may be air in the joint compartment. There is joint effusion with prominent collection in the suprapatellar bursa. XR/XR knee RT 3V* [id number] IMPRESSION: 1. Total knee prosthesis noted without evidence of fracture or loosening. 2. Soft tissue laceration along the medial aspect of the knee. There is soft t issue air. There may be air in the joint compartment. Joint effusion with prominent collection in the suprapatellar bursa. Dictated By: Vinod Carmona DO Signed By: Vinod Carmona DO Signed Date/Time: 11/02/20 1337 DD/ 1334 Discharge Plan Discharge Patient Disposition: Home Clinical Impression: Postoperative wound dehiscence Condition: Stable Coding Level of Care Code ED Terminal Superintendent for Chg Fwd Exam Detailed
--- NOTE | 2020-11-02 13:15 | XR_ITS ---
WS: [id number] Exam: XR knee RT 3V* [id number] Date/Time of Exam: 11/02/2020 1:26 PM Reason For Exam: trauma/fall Comparison 11/02/2020. No acute fracture or dislocation noted. A total knee replacement is intact without evidence of fractu re or loosening. There appears to be a soft tissue laceration along the medial aspect of the knee wit h soft tissue air. There may be air in the joint compartment. There is joint effusion with prominent collection in the suprapatellar bursa. XR/XR knee RT 3V* [id number] IMPRESSION: 1. Total knee prosthesis noted without evidence of fracture or loosening. 2. Soft tissue laceration along the medial aspect of the knee. There is soft ti ssue air. There may be air in the joint compartment. Joint effusion with promin ent collection in the suprapatellar bursa.
--- NOTE | 2020-11-02 15:31 | ANES.PREANE2 ---
Pre-Anesthetic Assessment Pre-Anesthetic Assessment: Height/Weight: Height 1.7 m Weight 87.09 kg Temp Pulse Resp BP Pulse Ox 98.2 F 71 18 167/64 99 11/02/20 12:48 11/02/20 12:48 11/02/20 12:48 11/02/20 12:48 11/02/20 12:48 Preop Diagnosis: Wound dehiscence Proposed Procedure: Operation Date: 11/02/20 15:20 Proposed Procedures p Debridement Lower Extremity(Right) - Susan Salas MD Social: Social History: No alcohol and No tobacco Exam: Pre-Anes Outpt Exam: alert, oriented x 3, clear to auscultation bilaterally and regular rate & rhythm Airway: Submandibular: WNL Cervical ROM: WNL MP: 2 History/ROS: No significant history except as noted Pulmonary: Pulmonary: None reported CV/HEM: CV/HEM: None reported Metabolic: Metabolic: DM Anesthetic Plan: ASA status: 2 Anesthesia: Anesthesia Evaluation and General PFSH Anesthesia PFSH: Family History Mother Cancer Father Cancer Social History Smoking and tobacco status: never smoked Alcohol intake: never Data Anesthesia Cardiac Studies: No Data to Display
[2020-11-02] MEDS: vancomycin 1,000 MG in sodium chloride 0.9% 250 ML 250 MG IV (15:59)
--- NOTE | 2020-11-02 16:00 | W.PM.OPSUD ---
Surgery/Procedure H&P Update DATE OF PROCEDURE: November 02, 2020 DATE H&P PERFORMED: 10/05/20 H&P UPDATE INFORMATION: I have reviewed H&P completed within last 30 days, I have examined patient prior to procedure and H&P is in [facility] EMR on date indicated CHANGES TO PREVIOUS DOCUMENTATION: Patient underwent total knee arthroplasty approximately 2 weeks ago. She was seen in the office today, and darrion were removed. While on her way home, she tripped on a step and fell directly onto her knee. This split her incision open causing a significant wound dehiscence. She was seen in the emergency department. She was brought in for outpatient surgical procedure to repair the wound dehiscence. PREOP DIAGNOSIS: Wound dehiscence PLANNED PROCEDURE: Operation Date: 11/02/20 15:20 Proposed Procedures p Debridement Lower Extremity(Right) - Susan Salas MD Related Problem List Diagnoses (1) Postoperative wound dehiscence: Qualifiers: Encounter type: initial encounter Qualified Code(s): T81.31XA - Disruption of external operation (surgical) wound, not elsewhere classified, initial encounter (2) Status post total right knee replacement not using cement:
[2020-11-02] MEDS: vancomycin 1,000 MG SDV 1000 MG IRRIGATION (16:39)
[2020-11-02] MEDS: vancomycin 1,000 MG SDV 1000 MG XX (16:41)
--- NOTE | 2020-11-02 17:19 | PM.OP ---
Operative Report Date of procedure: November 02, 2020 Pre-op Diagnosis: Wound dehiscence status post right total knee arthroplasty Pre-op Diagnosis: Secondary to trauma Post-op diagnosis: same Post-op Findings: Wound dehiscence with involvement into the knee joint Procedure Done: Irrigation and debridement right knee with primary wound closure Specimens removed/disposition: Cultures obtained Pathology: none sent Surgeon: Susan Salas Certified Midwife: [facility] operating room technicians Anesthesia: General (Endotracheal tube) Estimated blood loss (mL): 50 Tourniquet time (min): 0 IV fluids (mL): 800 Urine output (mL): 0 Urine output: No Morales Complications: None Findings: Wound dehiscence secondary to direct trauma to the knee with involvement into the joint Condition: stable Disposition: PACU (Then to same-day surgery for discharge to home) Brief History: This 80-year-old woman previously underwent total knee arthroplasty approximately 2 weeks ago. We discontinued her darrion today in the clinic, and Steri-Strips were placed. When she got home, she caught her foot on the step and fell directly onto the distal portion of her incision. This caused the wound dehiscence and opening of the wound. She was then transported to the emergency department by a friend. While in the emergency department, she was evaluated, and she was sent over to same-day surgery. I was involved in the decisions at this time. We elected to proceed as an outpatient surgical procedure. Risks and complications were discussed with the patient. Consents were signed. Procedure: The patient was brought to the operating theater, and after undergoing adequate general anesthesia, ASA 3, the right lower extremity was prepped with Betadine and draped in usual fashion following placement of a tourniquet high on the leg. The leg was then draped free. Following prepping and draping, we addressed the wound. We decided not to elevate the tourniquet unless necessary, and following exposure of the site of surgery, a surgical pause was performed. At the time of the surgical pause, we confirmed the site and side of surgery. Additionally, we confirmed the appropriate and timely administration of preoperative antibiotics, vancomycin 1 g. The availability of equipment was confirmed, and the patient's identity was verbalized as well. Following the surgical pause, the wound was evaluated. There was a large hematoma. This was debrided with a rongeur. Evaluation of the wound then demonstrated that distally, along the patellar tendon, the patient had also torn this repair. It actually was beside the area of the previous incision as the sutures were still in place. Cultures were obtained. We then irrigated the wound with 9 L of fluid. The final 3 L contained vancomycin. Soft tissues were debrided subcutaneous and fascial as necessary. Attention was then directed to closure. Closure was accomplished with 0 Vicryl in the fascial tissues. Following this, a 2-0 Monocryl was used in the subcutaneous tissues, and the skin was closed with skin darrion. A sterile dressing was then placed consisting of Dermabond Prineo, Telfa, 4x4's, ABD, sterile soft roll, and an Rogers wrap. The patient was returned the Recovery Room in a satisfactory condition. Patient will be discharged home to follow-up with me in the office next week. Associated Problem List Diagnoses (1) Postoperative wound dehiscence: Qualifiers: Encounter type: initial encounter Qualified Code(s): T81.31XA - Disruption of external operation (surgical) wound, not elsewhere classified, initial encounter (2) Status post total right knee replacement not using cement:
[2020-11-02] MEDS: fentaNYL 50 mcg/mL INJ 2mL IVP ×2 (17:20→17:25)
[2020-11-02] MEDS: HYDROmorphone 1 mg/mL INJ 1 mL 0.5 MG IVP ×2 (17:31→17:41)
[2020-11-02 17:50] LABS: Basophils % 0.6 %; Eosinophils # 0.1 10^3/uL (0.0-0.8); Eosinophils % 0.9 %; Hematocrit 27.4 % (37.0-47.0); Hemoglobin 8.5 g/dL (11.5-15.3); Lymphocytes # 1.3 10^3/uL (0.8-4.8); Lymphocytes % 18.2 %; Mean Corpuscular Hemoglobin 31.4 pg (28.0-34.0); Mean Corpuscular Volume 101.1 fL (81-99); Monocytes # 0.5 10^3/uL (0.2-0.9); Monocytes % 7.4 %; Neutrophils # 5.05 10^3/uL (1.8-7.7); Neutrophils % 72.3 %; Nucleated Red Blood Cells % 0 %; Platelet Count 395 10^3/cmm (130-400); Red Blood Count 2.71 10^6/uL (4.1-5.3); Red Cell Distribution Width 14.1 % (12.1-15.1)
[2020-11-02] MEDS: oxyCODONE 5 mg IR Tab/Cap PO (18:45)
[2020-11-02] MEDS: cetylpyridinium Lozenge 1 EACH MUCOUS MEM (18:51)
== END 2020-11-02 19:10 | disposition home or self-care (01) ==
LOC: ER 13:36 → OPS 13:51
PROVIDERS: Emergency Provider Physician Assistant; PCP Family Medicine; Visit Provider Specialist
PROC: (CPT 11043; principal; 2020-11-02 15:20)
DX: T81.31XA Disruption of external operation (surgical) wound, not elsewhere classified, initial encounter (principal); Z96.651 Presence of right artificial knee joint; E11.622 Type 2 diabetes mellitus with other skin ulcer
CPT/HCPCS: 11043; 73560; 73562; 73565; 85025; 87070; 87075; 96365; 96375; J1170; J2405; J2704; J2710; J3010; J3370; J3490; J7050

== ENCOUNTER → 2020-11-09 13:05 | Outpatient (BNVA) | payer MEDICARE, OTHER, SELFPAY | PROVIDERS: PCP Family Medicine; Visit Provider Specialist | DX: M17.11 Unilateral primary osteoarthritis, right knee (principal); T81.31XA Disruption of external operation (surgical) wound, not elsewhere classified, initial encounter; Z96.651 Presence of right artificial knee joint; X58.XXXA Exposure to other specified factors, initial encounter | CPT/HCPCS: 73560; 73565 ==

== ENCOUNTER → 2020-11-23 15:13 | Outpatient (BNVA) | payer MEDICARE, OTHER, SELFPAY | PROVIDERS: PCP Family Medicine; Visit Provider Specialist | DX: Z96.651 Presence of right artificial knee joint (principal); T81.31XA Disruption of external operation (surgical) wound, not elsewhere classified, initial encounter; M17.11 Unilateral primary osteoarthritis, right knee | CPT/HCPCS: 73560; 73565 ==

== ENCOUNTER 2020-12-10 06:00 | Outpatient (RCR) | payer MEDICARE, OTHER, SELFPAY | END 2021-01-06 23:59 | disposition home or self-care (01) | LOC: SPT 06:00 | PROVIDERS: PCP Family Medicine; Referring Provider Specialist; Visit Provider Specialist | DX: Z47.1 Aftercare following joint replacement surgery (principal); Z96.651 Presence of right artificial knee joint | CPT/HCPCS: 97110; 97161 ==

== ENCOUNTER → 2020-12-21 08:45 | Outpatient (BNVA) | payer MEDICARE, OTHER, SELFPAY | PROVIDERS: PCP Family Medicine; Visit Provider Specialist | DX: Z96.651 Presence of right artificial knee joint (principal); Z48.89 Encounter for other specified surgical aftercare; M17.11 Unilateral primary osteoarthritis, right knee | CPT/HCPCS: 73560; 73565 ==

== ENCOUNTER → 2020-12-23 12:38 | Outpatient (BNVA) | payer MEDICARE, OTHER, SELFPAY | PROVIDERS: PCP Family Medicine; Visit Provider Specialist | DX: M17.12 Unilateral primary osteoarthritis, left knee (principal); Z01.818 Encounter for other preprocedural examination; Z20.822 Contact with and (suspected) exposure to COVID-19 | CPT/HCPCS: 87635 ==

== ENCOUNTER 2020-12-29 15:10 | Observation (INO) | payer MEDICARE, OTHER, SELFPAY ==
[2020-12-23 11:17] VITALS: BMI 29.4
[2020-12-23 11:45] LABS: Basophils % 0.5 %; Eosinophils # 0.1 10^3/uL (0.0-0.8); Eosinophils % 1.6 %; Hematocrit 33.5 % (37.0-47.0); Hemoglobin 10.5 g/dL (11.5-15.3); Lymphocytes # 1.8 10^3/uL (0.8-4.8); Lymphocytes % 29.1 %; Mean Corpuscular HGB Conc 31.3 g/dL (30.0-36.0); Mean Corpuscular Hemoglobin 30.9 pg (28.0-34.0); Mean Corpuscular Volume 98.5 fL (81-99); Mean Platelet Volume 10.2 fL (7.4-10.4); Monocytes # 0.5 10^3/uL (0.2-0.9); Monocytes % 8.6 %; Neutrophils # 3.64 10^3/uL (1.8-7.7); Neutrophils % 59.9 %; Nucleated Red Blood Cells % 0 %; Platelet Count 236 10^3/cmm (130-400); Red Cell Distribution Width 13.4 % (12.1-15.1); White Blood Count 6.1 10^3/uL (4.0-10.0)
[2020-12-23 12:08] LABS: Alanine Aminotransferase 11 U/L (0-33); Albumin Level 4.4 g/dL (3.5-5.2); Alkaline Phosphatase 47 IU/L (35-105); Anion Gap 13.5 (5-19); Aspartate Amino Transferase 14 U/L (0-32); Blood Urea Nitrogen 30 mg/dL (8-23); Calcium 8.4 mg/dL (8.5-10.5); Carbon Dioxide 25 mmol/L (22-29); Chloride 105 mmol/L (98-107); Globulin 2.6 g/dL (1.3-4.6); Glucose 100 mg/dL (65-115); Osmolality Calculated 294 mOsm/kg (285-295); Potassium 4.5 mmol/L (3.5-5.1); Sodium 139 mmol/L (136-145); Total Bilirubin 0.2 mg/dL (0.15-1.2)
[2020-12-29] VITALS (24 sets, daily range): BP systolic 112–168; BP diastolic 57–115; PULSE 62–97; RESP 16–20; TEMP 36.5–37.4; O2SAT 96–100; BMI 29.4
[2020-12-29] MEDS: sodium chloride 0.9% 1,000 ML 30 ML IV (08:34)
[2020-12-29] MEDS: acetaminophen 1,000 MG/100 ML PIGGYBACK 400 MG IV ×2 (08:37→17:08)
[2020-12-29] MEDS: vancomycin 1,000 MG in sodium chloride 0.9% 250 ML 250 MG IV (08:37)
--- NOTE | 2020-12-29 09:03 | ANES.PREANE2 ---
Pre-Anesthetic Assessment Pre-Anesthetic Assessment: Height/Weight: Height 1.7 m Weight 85.275 kg Temp Pulse Resp BP Pulse Ox 97.7 F 70 18 168/109 100 12/29/20 08:21 12/29/20 08:21 12/29/20 08:21 12/29/20 08:21 12/29/20 08:21 Preop Diagnosis: Wound dehiscence status post right total knee arthroplasty Proposed Procedure: Operation Date: 12/29/20 10:20 Proposed Procedures p left Total Knee Arthroplasty 02995 m17.10(Left) - Susan Salas MD Familial anesthetic complications: None Was Beta Bernarda taken within 24 hours: N/A Was Clonidine taken within 24 hours: N/A Last intake: Intake Last Liquid Date 12/28/20 Last Liquid Time 23:59 Last Solid Date 12/28/20 Last Solid Time 19:30 Social: Social History: No alcohol and No tobacco Exam: Pre-Anes Outpt Exam: alert, oriented x 3, clear to auscultation bilaterally and regular rate & rhythm Airway: Cervical ROM: WNL MP: 3 Dentition: Full Metabolic: Metabolic: DM and Thyroid Anesthetic Plan: ASA status: 2 Anesthesia: General and Regional (specify below) (adductor) Risk of > 500 ml blood loss (7ml/kg in children): No Meds/Allergies Current Medications: Current Medications Generic Name Dose Route Start Last Admin Trade Name Freq PRN Reason Stop Dose Admin Sodium Chloride 1,000 mls @ 30 ml s/hr 12/29/20 08:15 12/29/20 08:34 Sodium Chloride 0.9% IV 12/30/20 08:14 30 mls/hr .Q24H GEORGE Administration Vancomycin HCl 1,0 00 mg/ 250 mls @ 250 mls /hr 12/29/20 08:13 12/29/20 08:37 Sodium Chloride IV 12/29/20 09:12 250 mls/hr 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
--- NOTE | 2020-12-29 09:04 | ANES.PROC ---
Anesthesia Procedures Procedure/Date: 12/29/20 Nerve Block ^: Nerve Block 1: Main Anesthesia: general anesthesia Time Out Performed: Yes Consent: requested by attending/covering physician, from patient, from other, risks and benefits reviewed and patient agrees to proceed Nerve block location: adductor canal (L) Anesthesia monitors applied: pulse oximetry, EKG, BP cuff and oxygen Nerve block position: supine Anesthetic Used: ropivicaine 0.5% and with decadron (4 mg) Amount of anesthesia used (mL): 30 Ultrasound used to: visualize and ID femerol nerve Nerve Stimulator Used?: No Interscalene/Femoral BLK: 4 stimuplex 21 g needle used for position and inplane approach and visualize local anesthetic spread Injection: neg aspiration of heme Patient Tolerated Procedure: well Complications: none
--- NOTE | 2020-12-29 10:23 | P.HPUD_ITS ---
Surgery/Procedure H&P Update DATE OF PROCEDURE: December 29, 2020 DATE H&P PERFORMED: 12/21/20 H&P UPDATE INFORMATION: I have reviewed H&P completed within last 30 days, I have examined patient prior to procedure, No changes to prior documentation and H&P is in [facility] [place] on date indicated PREOP DIAGNOSIS: Left Knee Osteoarthritis PLANNED PROCEDURE: Operation Date: 12/29/20 10:20 Proposed Procedures p left Total Knee Arthroplasty 36970 m17.10(Left) - Susan Salas MD Related Problem List Diagnoses (1) Primary osteoarthritis of left knee:
--- NOTE | 2020-12-29 11:20 | P.OP_ITS ---
Operative Report Date of procedure: December 29, 2020 Pre-op Diagnosis: Left Knee Osteoarthritis Post-op diagnosis: same Post-op Findings: Severe DJD Left Knee Procedure Done: Left total knee arthroplasty Implants: The [place] total knee system with a size 5 triathlon beaded posterior stabilized femur left, a triathlon titanium tibial component size 5 beaded, a triathlon X3 posterior stabilized tibial bearing insert size 5 X 11 mm and a beaded triathlon titanium asymmetric patella size 32 x 10 mm Specimens removed/disposition: Bone, disposed of Pathology: none sent Surgeon: Susan Salas Registered Public Health Nurse: [facility] operating room technicians Anesthesia: General (ET tube with regional block following failed spinal, ASA 2) Estimated blood loss (mL): 25 Tourniquet time (min): 107 Tourniquet time: At 300 mmHg IV fluids (mL): 1,300 Urine output (mL): 400 Complications: None Findings: Severe degenerative osteoarthritic changes involving the patellofemoral and medial compartments. Condition: stable Disposition: PACU (Then to floor for postoperative rehabilitation) Brief History: This 80-year-old woman presented to the office with severe left knee pain which was incapacitating. She was unable to ambulate or perform reasonable activities of daily living. None of these activities were able to be accomplished comfortably. She is status post right total knee arthroplasty, and she feels that the left knee is limiting her ability to fully rehab her previous right knee. She was unresponsive to conservative measures and wished to proceed with left total knee arthroplasty. Risks and complications were discussed. Consents were signed preoperatively, and questions were answered. The patient wished to proceed. Procedure: The patient was brought to the operating theater, and after undergoing adequate general anesthesia supplemented with regional block and sedation, ASA 2, the left lower extremity was prepped with Dura-Prep and draped in usual fashion following placement of a tourniquet high on the leg. General anesthetic per endotracheal tube followed a failed attempt at spinal anesthesia. The leg was then draped free. Following prepping and draping, the leg was exsanguinated, and the tourniquet was elevated to 300 mmHg for a total tourniquet time of 107 minutes. Prior to elevation of the tourniquet, but following exposure of the site of surgery, a surgical pause was performed. At the time of the surgical pause, we confirmed the site and side of surgery. Additionally, we confirmed the appropriate and timely administration of preoperative antibiotics, vancomycin 1 g. and Transexemic acid 1 g. The availability of equipment was confirmed, and the patient's identity was verbalized as well. Following the surgical pause, an incision was made centering over the patella continuing proximally and distally as necessary to allow access to the knee joint. Dissection continued through skin and soft tissues using a scalpel. Hemostasis was obtained using electrocautery. The skin incision was followed by a median parapatellar arthrotomy. The leg was extended and the patella was everted. Following this, the leg was returned to flexed position. The distal femur was exposed, and a drill hole was made in this for placement of the distal femoral jig. The distal femoral jig was set at 5? of valgus. The distal femoral cutting block was then placed in appropriate position, and an elly wing was used to confirm an appropriate amount of distal femur would be resected. The distal femoral resection was accomplished with 8 mm of bone being resected distally. After the distal femoral resection had been accomplished, the femur was measured and it measured a size 5. Medial lateral dimension measured a size 5. A size 5 femoral cutting block was placed in position, and we were then able to accomplish the anterior, posterior and chamfer cuts. This jig was then removed and the notch guide was placed in position. With the notch guide in appropriate position, the notch was excised including resection of the anterior and posterior cruciate ligaments. This notch was to allow for the posterior stabilized femoral component. At this point, the femur was prepared and attention was directed to the proximal tibia. The posterior knee retractor was placed along with medial and lateral retractors. Further resection of the menisci was accomplished as we had better visualization. A complete meniscectomy was performed both medially and laterally with care being taken to protect the popliteus. Retractors were then placed so that the proximal tibia was well visualized. A drill hole was then made in the tibia for placement of the intramedullary guide. This guide was placed so that approximately 2 mm of bone would be resected from the deficient medial tibial plateau. The intramedullary guide was utilized supplemented with an extramedullary guide to assure appropriate alignment for the proximal tibial resection. The proximal tibial jig was then evaluated, pinned in position, and the proximal tibial resection was accomplished without difficulty. The jig was removed, and the proximal tibia was measured. It measured a size 5. We then attempted a trial reduction with a size 5 by 9 mm insert. Osteophytes were also removed from the tibia. The femoral component was placed in position for the trial reduction, and the knee was placed through range of motion. With this, there was excellent stability with excellent varus-valgus alignment with appropriate patellar tracking. Extension was noted to be full as well. After the knee was manipulated, we were able to insert a size 5 x 11 mm insert. With this we continued to have excellent varus valgus alignment and full extension. Therefore, this was the chosen component. There was full extension and flexion without lift off and the rotation of the tibia was marked. Alignment was checked from the hip to the ankle, and this was noted to be appropriate as well. Attention was then directed to the patella. The patella was measured with a caliper. We resected sufficient patella to leave approximately 14 mm of patella remaining. Measurements of the patella then indicated that a size asymmetric 32 mm x 10 mm was the appropriate patellar size. We then placed the jig to drill for the 3 pegs of the press-fit patella, and these drill holes were made without incident. A trial patella was then placed, and the knee was placed through range of motion. The patella was noted to track nicely without evidence of subluxation. The femur was prepared for a press-fit femur by drilling 2 holes for the femoral pegs. All trial components were subsequently removed. The tibial tray was then pinned into position, and we broached the tibia for the stem of the tibial component. Subsequently, 4 drill holes were made for placement of the press-fit tibia. This was accomplished without difficulty. Care was taken to assure appropriate rotation of the tibia as well as appropriate position on the proximal tibia. The tibial tray was completely seated on the proximal tibia. Following broaching, the tibial guide was removed, and all surfaces were copiously irrigated. The surfaces were then dried and a bone plug was placed into the distal femur. Exparel was also injected at this point. The Tritanium tibia was impacted into position. The beaded femur was then impacted into position in a cementless fashion. The tibial insert was placed. The patella was pressed into position with a patellar clamp. The knee was irrigated with 20 mL of Betadine and 500 mL of normal saline, and this was allowed to remain in the knee for 3-4 minutes. The knee was then copiously irrigated and suctioned dry. Attention was then directed to closure. Closure was accomplished with 0 Vicryl in the fascial tissues. Following this, a 2-0 Monocryl was used in the subcutaneous tissues, and the skin was closed with skin darrion. A sterile dressing was then placed consisting of Dermabond Prineo, Telfa, 4x4's, sterile soft roll, and an Rogers wrap. The patient was returned the Recovery Room in a satisfactory condition. X-rays were obtained there. The patient will be discharged to the floor for postoperative rehabilitation and pain management. Associated Problem List Diagnoses (1) Primary osteoarthritis of left knee:
[2020-12-29] MEDS: vancomycin 1,000 MG SDV 1000 MG (12:29)
[2020-12-29] MEDS: ceFAZolin 1,000 mg SDV 2000 MG (12:32)
--- NOTE | 2020-12-29 14:15 | XRR_ITS ---
PROCEDURE INFORMATION: Exam: XR Left Knee Exam date and time: 12/29/2020 2:15 PM Age: 80 years old Clinical indication: Device placement; Joint replacement hardware; Prior surgery; Surgery date: Post-operative (0-2 days); Additional info: S/P tka, 2 view TECHNIQUE: Imaging protocol: XR Left knee. Views: 1 or 2 views. COMPARISON: CR XR knees AP WB w RT lmt ORTH 11/23/2020 3:19 PM FINDINGS: Bones/joints: Anatomic alignment of left knee arthroplasty. Soft tissues: Skin darrion. Postoperative subcutaneous emphysema and intra-articular air. XR/XR knee LT 1-2V [id number] IMPRESSION: Anatomic alignment of left knee arthroplasty.
[2020-12-29] MEDS: fentaNYL 50 mcg/mL INJ 2mL IVP (14:43)
[2020-12-29] MEDS: meperidine 50 mg/mL INJ 12.5 MG IVP (15:13)
--- NOTE | 2020-12-29 15:32 | SUR.PHASEI ---
WAITING TO GIVE REPORT TO FLOOR, PT AWAKE ALERT TALKATIVE STATES PAIN IS GONE NOW, PT NOT SHIVERING , PT GIVEN WARM BLANKETS X 5 EARLIER BUT CONTINUED TO SHIVER SEE DEMEROL GIVEN EARLIER. LT KNEE DRESSING D/I FIRST ICE IN PLACE DISTAL FOOT PINK WARM CAP REFILL LESS THAN 3 SECONDS, DISTAL PULSE NOTED AND MARKED.[place] CATHETER PATENT TO DD YELLOW URINE.
--- NOTE | 2020-12-29 15:53 | ANE.PACU2 ---
Inpatient post-anesthesia follow up: Airway intact: Yes Vital signs: Temperature 98.2 F Pulse Rate 81 Respiratory Rate 17 Blood Pressure 161/77 Pulse Oximetry 96 Oxygen Delivery Me thod Room Air Oxygen Flow Rate 8 Fraction of Inspir ed Oxygen Hydration adequate: Yes Nausea and vomiting: No Pain level: 4 Mental status: Baseline
[2020-12-29] MEDS: oxyCODONE 5 mg IR Tab/Cap PO (17:06)
[2020-12-29] MEDS: chlorhexidine gluconate 0.12% Btl 473 mL 30 ML MUCOUS MEM ×2 (17:10→21:57)
[2020-12-29] MEDS: calcium carbonate 500 mg Chew Tablet 1000 MG PO (17:11)
[2020-12-29] MEDS: iron polysaccharide complex 150 mg Capsule PO (17:11)
[2020-12-29] MEDS: mupirocin oint 22 gm 1 APPLIC NASAL (17:11)
[2020-12-29] MEDS: CELEcoxib 200 mg Capsule PO (17:11)
[2020-12-29] MEDS: sennosides-docusate Tablet 2 TAB PO (17:12)
[2020-12-30] VITALS (7 sets, daily range): BP systolic 123–146; BP diastolic 63–72; PULSE 65–72; RESP 16–18; TEMP 36.8–37.2; O2SAT 95–99
[2020-12-30] MEDS: oxyCODONE 5 mg IR Tab/Cap PO ×3 (01:03→13:33)
[2020-12-30] MEDS: acetaminophen 1,000 MG/100 ML PIGGYBACK 400 MG IV ×2 (01:04→08:43)
[2020-12-30 02:59] LABS: Basophils % 0.5 %; Hemoglobin 8.7 g/dL (11.5-15.3); Lymphocytes # 1.5 10^3/uL (0.8-4.8); Lymphocytes % 17.9 %; Mean Corpuscular HGB Conc 31.1 g/dL (30.0-36.0); Mean Corpuscular Hemoglobin 30.5 pg (28.0-34.0); Mean Corpuscular Volume 98.2 fL (81-99); Mean Platelet Volume 10.8 fL (7.4-10.4); Neutrophils # 5.97 10^3/uL (1.8-7.7); Neutrophils % 69.3 %; Nucleated Red Blood Cells % 0 %; Platelet Count 209 10^3/cmm (130-400); Red Blood Count 2.85 10^6/uL (4.1-5.3); Red Cell Distribution Width 13.4 % (12.1-15.1); White Blood Count 8.6 10^3/uL (4.0-10.0)
[2020-12-30 03:40] LABS: Blood Urea Nitrogen 25 mg/dL (8-23); Calcium 8.2 mg/dL (8.5-10.5); Carbon Dioxide 21 mmol/L (22-29); Chloride 106 mmol/L (98-107); Glucose 158 mg/dL (65-115); Osmolality Calculated 296 mOsm/kg (285-295); Sodium 139 mmol/L (136-145)
[2020-12-30] MEDS: lisinopril 10 mg Tablet PO (08:42)
[2020-12-30] MEDS: iron polysaccharide complex 150 mg Capsule PO (08:42)
[2020-12-30] MEDS: CELEcoxib 200 mg Capsule PO (08:42)
[2020-12-30] MEDS: aspirin 325 mg EC Tablet PO (08:42)
[2020-12-30] MEDS: levothyroxine 75 mcg Tablet PO (08:42)
[2020-12-30] MEDS: sennosides-docusate Tablet 2 TAB PO (08:42)
[2020-12-30] MEDS: multivitamin therapeutic Tablet 1 TAB PO (08:42)
[2020-12-30] MEDS: cholecalciferol (vitamin D3) 1,000 unit Tablet 1000 UNIT PO (08:42)
--- NOTE | 2020-12-30 10:24 | PC.CHAP ---
Pastoral Care Encounter/Spiritual Assessment Type of Contact [] Declined wire puller visit [] Patient/Family/Request visit [] Outpatient visit [] Follow-up visit [] Physician referral [] Code/Alert [x] Routine visit [] Staff referral [] Actively dying [] Patient sleeping [] Family support [] [] Out of room [] Palliative care [] [] Receiving care in room [] Pre-surgical visit [] Trauma [] Long length of stay [] ICU visit [] Other: Relational/Emotional Strength [x] Patient feels connected with others/family/visitors/staff [] Distress [] Loneliness/isolation [] Abandonment Spirituality of Patient [x] Person of Juliana x[x] Attends Confucianist of their Juliana [x] Believes in Prayer [] Reads Bible or Jain materials [] There are Spiritual issues to be addressed 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 Interventions [x] Prayer [x] Active listening [] Non-anxious presence [] Spiritual/emotional support [] Crisis/trauma care [] Spiritual counseling [] Bereavement support [] Provided bereavement packet [] Provided Bible/devotional materials [] Provided toy/stuffed animal, coloring book to patient or family member [] Provided Communion [] Anointing/[place] [] Salvation []x Completed spiritual assessment [] Other: Impact on Illness or Injury [] Angry [] Fearful [] Anxious [] Often cries [] Exhaustion [] Unable to work [] Unable to attend lutheran [] Unable to walk/stand [] Unable to read [] Unable to drive [] Unable to eat/drink [] Unable to sleep [] Unable to be with family [] Patient intubated [] Other: Summary \PATIENT HAS LITTLE PAIN Time spent with patient 1O MIN
[2020-12-30] MEDS: calcium carbonate 500 mg Chew Tablet 1000 MG PO (10:42)
[2020-12-30] MEDS: chlorhexidine gluconate 0.12% Btl 473 mL 30 ML MUCOUS MEM (10:45)
[2020-12-30] MEDS: vancomycin 1,000 MG in sodium chloride 0.9% 250 ML 250 MG IV (10:48)
[2020-12-30] MEDS: mupirocin oint 22 gm 1 APPLIC NASAL (10:49)
--- NOTE | 2020-12-30 15:08 | PM.DCS ---
Discharge Providers Date of Admission: 12/29/20 15:10 Date of Discharge: December 30, 2020 Attending Provider at Admission: Susan aSlas MD Attending Provider at Discharge: Susan Salas MD Primary Care Provider: Jas Kc DO Diagnoses at Discharge Discharge Diagnosis (1) Primary osteoarthritis of left knee: Status: Acute (2) Status post total left knee replacement not using cement: Status: Acute Permanent problem details: The [place] total knee system with a size 5 triathlon beaded posterior stabilized femur left, a triathlon titanium tibial component size 5 beaded, a triathlon X3 posterior stabilized tibial bearing insert size 5 X 11 mm and a beaded triathlon titanium asymmetric patella size 32 x 10 mm Reason for Visit Reason for Visit: total knee arthroplasty Hospital Course Hospital Course 80-year-old woman was admitted under observation status following left total knee arthroplasty. Her total knee arthroplasty was performed on December 29, 2020. She was brought into the hospital under observation status. On the first postoperative day she was doing well with no evidence of complication. The patient worked with physical therapy. She was independent. She had minimal complaints of pain. Her dressing was removed. Her wound was benign. There is no evidence of DVT. There were no complications. Plans were the patient will be discharged home with home physical therapy. She is in agreement with this and therefore she is discharged to follow-up with me as previously scheduled. Physical Exam Const: COMMON NORMALS: no acute distress, average body habitus, patient oriented x3 and alert GENERAL APPEARANCE: cooperative and comfortable ORIENTATION/CONSCIOUSNESS: Yes awake HENMT: COMMON NORMALS: normocephalic and atraumatic HEAD & SCALP: normocephalic and atraumatic Eye: GENERAL EYE: appearance normal, both eyes and all related structures Chest: COMMONS NORMALS: normal inspection of the chest Resp: COMMON NORMALS: normal respiratory effort EFFORT & INSPECTION: Yes able to speak in complete sentences and Yes symmetric chest movement Extremity: LEFT LOWER EXTREMITY: Yes knee joint (Dressing is removed and the wound is benign.) Left knee: Yes inspection (There is no drainage or redness), Yes palpation (No calf tenderness or evidence of DVT.), Yes ROM (Not evaluated), Yes neurovascular exam (Intact.) and Yes other (Able to straight leg raise.) Neuro: COMMON NORMALS: patient oriented x3 SENSORIUM/ORIENTATION: Yes alert Psych: COMMON NORMALS: mental status grossly normal APPEARANCE: Yes grossly normal ATTITUDE: Yes calm and Yes engaged ATTENTION/CONCENTRATION: Yes attention grossly intact Skin: COMMON NORMALS: no rashes or lesions noted GENERAL SKIN EXAM: no rashes or lesions noted Urinary Catheter Management^: Morales: Cath Placed During This Visit: yes, but has since been removed by the nurse Reason for Continuing Indwelling Catheter: Decision to DC Catheter Urinary Catheter Date of Insertion: 12/29/20 Urinary Catheter Time of Insertion: 12:25 Date Urinary Catheter Removed: 12/30/20 Time Urinary Catheter Discontinued: 06:36 Discharge Data Data Completed and Pending: Completed Studies During Hospitalization Category Date Time Status XR knee LT 1-2V 7 3560 Urgent Exams 12/29/20 14:15 Completed Labs from last 24 hours 12/30/20 12/30/20 02:04 02:04 WBC 8.6 RBC 2.85 L Hgb 8.7 L Hct 28.0 L MCV 98.2 MCH 30.5 MCHC 31.1 RDW 13.4 Plt Count 209 MPV 10.8 H Neut % (Auto) 69.3 Lymph % (Auto) 17.9 [place] % (Auto) 12.0 Eos % (Auto) 0.0 Baso % (Auto) 0.5 Neut # (Auto) 5.97 Lymph # (Auto) 1.5 [place] # (Auto) 1.0 H Eos # (Auto) 0.0 Baso # (Auto) 0.0 Nucleated RBC % (a uto) 0 Nucleated RBCs # 0.0 Sodium 139 Potassium 4.0 Chloride 106 Carbon Dioxide 21 L Anion Gap 16.0 BUN 25 H Creatinine 0.9 GFR Calculation Not Reportable Glucose 158 H Calculated Osmolal ity 296 H Calcium 8.2 L Vitals: Last Vital Signs Temp 98.9 F 12/30/20 11:30 Pulse 70 12/30/20 11:30 Resp 16 12/30/20 13:33 BP 137/63 12/30/20 11:30 Pulse Ox 95 12/30/20 11:30 Discharge Plan Discharge Patient Disposition: Home Health Service Condition: Stable Prescriptions: New aspirin 325 mg Tablet,Delayed Release (Dr/Ec) 325 mg PO DAILY 30 Days RF: 0 oxycodone 5 mg Tablet 5 mg PO Q4H PRN (Reason: Moderate Pain) Qty: 30 RF: 0 Continued levothyroxine 75 mcg capsule 75 mcg PO DAILY RF: 0 lisinopril 10 mg tablet 10 mg PO DAILY RF: 0 acetaminophen 650 mg Tablet Extended Release 650 mg PO Q12H RF: 0 Hold Instructions: Resume on 11/07/20. Multivitamin Women 50 Plus 8 mg iron-400 mcg-300 mcg Tablet 1 tab PO DAILY RF: 0 celecoxib [Celebrex] 200 mg capsule 200 mg PO BID Qty: 60 RF: 1 vit A-vit C-vit [id number] 7,160-113-100 [id number] Tablet 1 tab PO DAILY RF: 0 Discharge Orders: Discharge Order (Routine); Ordered 12/30/20 Ordered By: Susan Salas Referrals: Susan Salas MD [Physician] - 01/11/21 10:45 am (For nurse visit, and again with me on January 21 at 1145) Discharge Diet: Advance as tolerated and Usual diet Discharge Activity: Increase activity as tolerated, Limit activity as instructed, Use walker/crutches as instructed and As per PT/OT instructions Patient Instructions: Aspirin (By mouth), Celecoxib (By mouth), Oxycodone, Slow Release (By mouth), Total Knee Replacement (DC), Opioid Safety Activity Restrictions/Additional Instructions: Ice and elevation left lower extremity. Gait training, strengthening, and range of motion per physical therapy. 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
== END 2020-12-30 14:23 | disposition home health service (06) ==
LOC: MEDSURG 15:11
PROVIDERS: Admitting Provider Specialist; PCP Family Medicine; Visit Provider Specialist
PROC: (CPT 27447; principal; 2020-12-29 10:00)
DX: M17.12 Unilateral primary osteoarthritis, left knee (principal); E11.9 Type 2 diabetes mellitus without complications
CPT/HCPCS: 27447; 36415; 51702; 64447; 73560; 73562; 76942; 80048; 80053; 85025; 97116; 97161; 97165; 97530; C1776; C9290; G0378; J0690; J1100; J2175; J2250; J2704; J2795; J3010; J3370; J3490; J7030; J7050

== ENCOUNTER → 2021-01-21 11:56 | Outpatient (BNVA) | payer MEDICARE, OTHER, SELFPAY | PROVIDERS: PCP Family Medicine; Visit Provider Specialist | DX: Z96.652 Presence of left artificial knee joint (principal); Z96.651 Presence of right artificial knee joint | CPT/HCPCS: 73560; 73565 ==

== ENCOUNTER → 2021-01-28 16:11 | Outpatient (BNVA) | payer MEDICARE, OTHER, SELFPAY | PROVIDERS: PCP Family Medicine; Visit Provider Specialist | DX: T81.31XA Disruption of external operation (surgical) wound, not elsewhere classified, initial encounter (principal); Z96.652 Presence of left artificial knee joint; Z20.822 Contact with and (suspected) exposure to COVID-19; Y83.8 Other surgical procedures as the cause of abnormal reaction of the patient, or of later complication, without mention of misadventure at the time of the procedure | CPT/HCPCS: 87635 ==

== ENCOUNTER 2021-01-29 18:32 | Inpatient (IN) | payer MEDICARE, OTHER, SELFPAY ==
[2021-01-28 16:05] VITALS: BMI 30.7
[2021-01-29] VITALS (24 sets, daily range): BP systolic 87–178; BP diastolic 40–99; PULSE 54–93; RESP 8–24; TEMP 36.6–37.4; O2SAT 97–100
[2021-01-29] MEDS: acetaminophen 1,000 MG/100 ML PIGGYBACK 400 MG IV (15:15)
--- NOTE | 2021-01-29 15:24 | P.ANESASSM_ITS ---
Pre-Anesthetic Assessment Pre-Anesthetic Assessment: Height/Weight: Height 1.68 m Weight 86.183 kg Temp Pulse Resp BP Pulse Ox 99.1 F 74 17 178/99 100 01/29/21 15:08 01/29/21 15:08 01/29/21 15:08 01/29/21 15:08 01/29/21 15:08 Preop Diagnosis: Wound dehiscence postoperative Proposed Procedure: Operation Date: 01/29/21 18:10 Proposed Procedures p Debridement Lower Extremity And Irrigation 70193 Z96.652 T81.31XA(Left) - Susan Salas MD Familial anesthetic complications: Hard to wake up sometimes Was Beta Bernarda taken within 24 hours: N/A Was Clonidine taken within 24 hours: N/A Last intake: Intake Last Liquid Date 01/29/21 Last Liquid Time 10:30 Last Solid Date 01/28/21 Last Solid Time 12:00 Social: Social History: No alcohol and No tobacco Exam: Pre-Anes Outpt Exam: alert, oriented x 3, clear to auscultation bilaterally and regular rate & rhythm Airway: Cervical ROM: WNL MP: 3 Dentition: Partials and Other (missing) Metabolic: Metabolic: DM (diet managed) Comments: lisinopril for kidney protection Anesthetic Plan: ASA status: 2 Anesthesia: General Risk of > 500 ml blood loss (7ml/kg in children): No PFSH Anesthesia PFSH: Family History Mother Cancer Father Cancer Social History Alcohol intake: never Data Anesthesia Cardiac Studies: 2 No Data to Display
--- NOTE | 2021-01-29 17:12 | P.HPUD_ITS ---
Surgery/Procedure H&P Update DATE OF PROCEDURE: January 29, 2021 DATE H&P PERFORMED: 01/29/21 H&P UPDATE INFORMATION: I have reviewed H&P completed within last 30 days, I have examined patient prior to procedure, No changes to prior documentation and H&P is in [facility] EMR on date indicated CHANGES TO PREVIOUS DOCUMENTATION: Cardiac demonstrates a normal rhythm and rate with no murmurs gallops clicks or rubs. The patient's respiratory status dem onstrates normal auscultation with no wheezes. PREOP DIAGNOSIS: Wound dehiscence postoperative PLANNED PROCEDURE: Operation Date: 01/29/21 18:10 Proposed Procedures p Debridement Lower Extremity And Irrigation 10114 Z96.652 T81.31XA(Left) - Susan Salas MD Related Problem List Diagnoses (1) Postoperative wound dehiscence: Qualifiers: Encounter type: initial encounter Qualified Code(s): T81.31XA - Disruption of external operation (surgical) wound, not elsewhere classified, initial encounter
[2021-01-29] MEDS: vancomycin 1,000 MG in sodium chloride 0.9% 250 ML 250 MG IV (18:00)
[2021-01-29] MEDS: vancomycin 1,000 MG SDV 2000 MG XX ×2 (18:18→18:23)
--- NOTE | 2021-01-29 19:30 | ANE.PACU2 ---
Inpatient post-anesthesia follow up: Airway intact: Yes Vital signs: Temperature 99.0 F Pulse Rate 86 Respiratory Rate 16 Blood Pressure 120/67 Pulse Oximetry 95 Oxygen Delivery Me thod Room Air Oxygen Flow Rate 8 Fraction of Inspir ed Oxygen Hydration adequate: Yes Nausea and vomiting: No Pain level: 3 Mental status: Baseline
--- NOTE | 2021-01-29 19:33 | PM.OP ---
Operative Report Date of procedure: January 29, 2021 Pre-op Diagnosis: Wound dehiscence postoperative Post-op diagnosis: same Post-op Findings: Dehiscence down into the knee joint. Procedure Done: Irrigation and debridement left knee including skin, subcutaneous tissues, fascia, muscles. Additionally, revision tibial polyethylene with polyethylene exchange. Implants: None tibial bearing insert posterior stabilized size 5 x 11 mm Specimens removed/disposition: Wound cultures Pathology: none sent Surgeon: Susan Salas [employer]: [facility] operating room technicians Anesthesia: General (Intubated, ASA 2) Estimated blood loss (mL): 200 Tourniquet time (min): 3 Tourniquet time: At 250 mmHg, the tourniquet was released secondary to being a venous tourniquet IV fluids (mL): 1,200 Urine output (mL): 0 Urine output: No Morales Complications: None Findings: Median parapatellar dehiscence of previous surgical repair following total knee arthroplasty. This was palpable upon entry into the knee joint. Condition: stable Disposition: PACU (Then to floor for IV antibiotics and medical consultation) Brief History: This 80-year-old woman presented with complaints of drainage from the knee. She was asked to come to the hospital after she had a slight wound dehiscence which was addressed with irrigation and debridement. Upon entry into the prepatellar bursa, the patient was noted to have continuation into the knee joint. By history, the patient had noted pain in his knee following total knee arthroplasty. She was subsequently admitted to the hospital for IV antibiotic therapies and medical consultation. Procedure: The patient was brought to the operating theater, and after undergoing adequate anesthesia and intubated, ASA 2, the left lower extremity was prepped and draped in usual fashion following placement of a tourniquet high on the leg. The leg was then draped free with the prepping accomplished with Betadine. Following prepping and draping, the tourniquet was elevated to 250 mmHg for total tourniquet time of 3 minutes. Since we did not exsanguinate secondary to concern for infection, the tourniquet was effectively a venous tourniquet and was released after 3 minutes. Prior to elevation of the tourniquet, but following exposure of the site of surgery, a surgical pause was performed. At the time of the surgical pause we confirmed the site and side of surgery. Additionally, we confirmed the appropriate availability of antibiotic which was to be given after cultures were obtained. The availability of equipment was confirmed, and the patient's identity was verbalized as well. Following the surgical pause, the previous incision was entered centering over the patella continuing proximally and distally as necessary to allow access to the knee joint. This involved release of the entire initial incision. Dissection continued through skin and soft tissues using a scalpel. Hemostasis was obtained using electrocautery. Upon entry into the prepatellar bursal area, palpation demonstrated that the suture line along with median parapatellar arthrotomy was dehisced as well, and I was able to place my finger directly into the knee joint. Therefore, debridement was accomplished with a combination of sharp and rongeur debridement. We opened the knee joint and debrided internally as well. Copious irrigation was accomplished with 9 L of fluid after cultures were obtained. Vancomycin was also administered after culture was obtained. The knee joint was then entered with the knee in a flexed position. The patella was merely slid off to the lateral side to allow access. The polyethylene was removed from the joint. We then were able to debride further posteriorly. Once this was accomplished, we continued the aggressive irrigation. A total of 9 L of fluid was utilized with vancomycin. When it was felt that adequate debridement had been accomplished, a new polyethylene was inserted. This was the same size as the one removed. The new polyethylene was a size 5 x 11 mm in thickness. It was placed uneventfully. Attention was then directed to closure. Closure was accomplished with #1 PDS interrupted in the fascial tissues, 2-0 Monocryl was used in the subcutaneous tissues, and the skin was closed with skin darrion. A sterile dressing was then placed consisting of Dermabond, Prineo, Telfa, 4 x 4's, ABDs, sterile soft roll, and an Rogers wrap. She was placed in a knee immobilizer. The patient was returned the Recovery Room in a satisfactory condition. The patient will be discharged to the floor for postoperative pain management and IV antibiotics. A medical consultation will be obtained with plans for probable IV antibiotics per PICC line depending upon culture results. Associated Problem List Diagnoses (1) Postoperative wound dehiscence: Qualifiers: Encounter type: initial encounter Qualified Code(s): T81.31XA - Disruption of external operation (surgical) wound, not elsewhere classified, initial encounter
[2021-01-29] MEDS: HYDROmorphone 1 mg/mL INJ 1 mL 0.5 MG IVP ×4 (19:39→23:49)
--- NOTE | 2021-01-29 20:18 | SUR.PHASEI ---
1920 PT AWAKE ALERT GOOD RESP NOTED VSS IV PATENT IV AT SLOW RATE TO LT HAND SITE . LT KNEE DRESSING D/I KNEE IMMOBILIZER IN PLACE DISTAL PULSE STRONG REGULAR MARKED FIRST ICE TO KNEE 1929 PT STATES PAIN 10/10 (UNBEARABLE) VSS SEE PAIN MED PT HAS HAD LARGE AMT FENTANYL SO DR DORAN AGREED FOR PT TO HAVE DILAUDED PER PHASE 1 PROTOCOL IN PACU 2000 SEE PAIN MED REPEATED VSS IV AT BOLUS RATE PT ALERT AND TALKATIVE C/O OF UNCHANGING PAIN 2013 PT CRYINGOUT C/O PAIN IS UNCHANGED SEE THIRD DOSE OF PAIN MEDS GIVEN BP STABLE AT 129/53.
[2021-01-29] MEDS: sodium chloride 0.9% 1,000 ML 30 ML IV (20:35)
[2021-01-29] MEDS: oxyCODONE 5 mg IR Tab/Cap PO (21:46)
[2021-01-29 21:47] LABS: Glucose Point of Care 153 mg/dL (70-110)
[2021-01-30] VITALS (13 sets, daily range): BP systolic 120–158; BP diastolic 51–69; PULSE 74–109; RESP 16–18; TEMP 36.3–37.6; O2SAT 92–100
--- NOTE | 2021-01-30 00:48 | P.CONIM_ITS ---
Providers/Reason For Consult Consulting Physician/Specialty*: Hospitalist Reason for Consult*: Medical management Attending Physician: Susan Salas MD Primary Care Provider: Jas Kc DO History of Present Illness History of Present Illness 80-year-old female with a past medical history significant for hypertension, hypothyroidism, osteoarthritis was admitted to the hospital after she was noted to have postop wound dehiscence after left knee replacement on 12/29/2020. Rosa ent was taken for debridement of left knee. Cultures were sent. Patient was risk for knee joint infection. Medicine was asked the consult for management. At the time of my evaluation patient was complaining of pain. Prior to debridement patient stated that she did have drainage however this does not appear to be purulent in nature. Did have surrounding joint erythema however. Noted subjective fever. No nausea or vomiting. Denies chest pain or shortness of breath . Laboratory workup showed a WBC of 8.8, hemoglobin 6.6, hematocrit of 22 and a platelet count of 219. sodium 140, potassium 4.9, chloride 108, bicarb 24, BUN 17 and creatinine of 0.8. Patient started vancomycin pharmacy to dose and Rocephin 2 g IV Q 24 hour. Review of Systems General: Reports: 10 or more systems reviewed and unremarkable except in HPI and below Meds/Allergies Home Medications and Allergies Home Medications Medication Instructions Recorded Confirmed Last Taken Type levothyroxine 75 mcg capsule 75 mcg PO DAILY 10/05/20 01/29/21 01/29/21 History lisinopril 10 mg tablet 10 mg PO DAILY 10/05/20 01/29/21 01/28/21 History Multivitamin Women 50 Plus 1 tab PO DAILY 10/13/20 01/29/21 01/28/21 History acetaminophen 650 mg PO Q12H 10/13/20 01/29/21 01/28/21 History celecoxib [Celebrex] 200 mg PO BID #60 cap 10/21/20 01/29/21 01/28/21 Rx vit A-vit C-vit [id number] 1 tab PO DAILY 12/29/20 01/29/21 01/28/21 History Allergies Allergy/AdvReac Type Severity Reaction Status Date / Time Penicillins Allergy Intermediate rash Verified 01/28/21 16:07 Sulfa (Sulfonamide Allergy Intermediate rash Verified 01/28/21 16:07 Antibiotics) etodolac Allergy rash Verified 01/28/21 16:07 naproxen [From Aleve] Allergy rash Verified 01/28/21 16:07 Current Medications Current Medications Generic Name Dose Route Start Last Admin Trade Name Freq PRN Reason Stop Dose Admin Chlorhexidine Gluconate 30 ml 01/29/21 21:15 01/30/21 03:39 Chlorhexidine Gluconate 0.12% Btl 473 Ml MUCOUS MEM 30 ml QID GEORGE Administration Hydromorphone HCl 0.5 mg 01/29/21 23:19 01/29/21 23:49 Hydromorphone 1 Mg/Ml Inj 1 Ml IVP 0.5 mg Q4H PRN Administration severe pain Acetaminophen 1,000 mg in 100 mls @ 400 mls/hr 01/29/21 21:15 01/30/21 05:23 Acetaminophen IV 01/30/21 13:29 400 mls/hr Q8H GEORGE Administration Oxycodone HCl 5 mg 01/29/21 21:15 01/30/21 05:24 Oxycodone 5 Mg Ir Tab/Cap PO 5 mg Q4H PRN Administration MODERATE PAIN PFSH Acute PFSH: Family History Mother Cancer Father Cancer Social History Alcohol intake: never Vitals/I&O/Wt Last Vital Signs Temp 99.0 F 01/30/21 03:30 Pulse 86 01/30/21 04:56 Resp 16 01/30/21 05:24 BP 120/67 01/30/21 03:30 Pulse Ox 95 01/30/21 04:56 01/29/21 01/30/21 01/30/21 22:59 06:59 14:59 Intake Total 1550 / 1550 Output Total 400 / 400 600 / 1000 Balance 1150 / 1150 -600 / 550 Weight last 48 hrs Weight 86.183 kg Physical Exam Narrative: EXAM NARRATIVE: General ; alert,awake oriented x 3 HEENT ; grossly unremarkable CVS; RRR CHEST; non labored respiration abd ; non distended Ext : Left lower extremity surgical dressing/ice A&P Assessment and plan (1) Postoperative wound dehiscence: Status: Acute Qualifiers: Encounter type: initial encounter Qualified Code(s): T81.31XA - Dis ruption of external operation (surgical) wound, not elsewhere classified, initial encounter (2) Status post total left knee replacement not using cement: Status: Acute Additional A&P Information TKA with post op wound dehisense s/p debridement Culture drawn in OR Vancomycin pharmacy to dose Rocephin 2g IV daliy Pain control WIll consider ID consult Acute blood loss anemia - Post op Hb 6.8 Type and cross Transfuse 1 unit PRBC Repeat H//H in am Hypythyroidism Levothyroxine 75 mcg po daily DVT ppx Hold due to anemia Consult Attestations Medical Necessity Statement: for require further hospitalization for management of postop wound dehiscence requiring IV antibiotics Time Spent in Patient Care: Greater than 35 minutes (>than 50% of time spent in counselling and/or direct pt care on unit) . Coding Level of Care Code Acute Solder Making Supervisor for Isac Chong Diagnoses Postoperative wound dehiscence T81.31XA Encounter type: initial encounter Status post total left knee replacement not using cement Z96.652
[2021-01-30 03:16] LABS: Basophils % 0.3 %; Hematocrit 22.2 % (37.0-47.0); Hemoglobin 6.6 g/dL (11.5-15.3); Lymphocytes # 0.9 10^3/uL (0.8-4.8); Mean Corpuscular HGB Conc 29.7 g/dL (30.0-36.0); Mean Corpuscular Hemoglobin 30.3 pg (28.0-34.0); Mean Corpuscular Volume 101.8 fL (81-99); Mean Platelet Volume 10.2 fL (7.4-10.4); Monocytes # 0.4 10^3/uL (0.2-0.9); Monocytes % 4.3 %; Neutrophils % 84.9 %; Nucleated Red Blood Cells % 0 %; Platelet Count 219 10^3/cmm (130-400); Red Blood Count 2.18 10^6/uL (4.1-5.3); Red Cell Distribution Width 14.3 % (12.1-15.1); White Blood Count 8.8 10^3/uL (4.0-10.0)
[2021-01-30] MEDS: chlorhexidine gluconate 0.12% Btl 473 mL 30 ML MUCOUS MEM ×5 (03:39→21:03)
[2021-01-30 03:50] LABS: Anion Gap 12.9 (5-19); Blood Urea Nitrogen 17 mg/dL (8-23); Calcium 7.4 mg/dL (8.5-10.5); Carbon Dioxide 24 mmol/L (22-29); Chloride 108 mmol/L (98-107); Glucose 186 mg/dL (65-115); Osmolality Calculated 296 mOsm/kg (285-295); Potassium 4.9 mmol/L (3.5-5.1); Sodium 140 mmol/L (136-145)
[2021-01-30] MEDS: acetaminophen 1,000 MG/100 ML PIGGYBACK 400 MG IV ×2 (05:23→14:57)
[2021-01-30] MEDS: oxyCODONE 5 mg IR Tab/Cap PO ×2 (05:24→10:48)
--- NOTE | 2021-01-30 05:56 | PC.PHAR ---
Vancomycin is dosed at 1500mg IVPB every 24 hours to produce a predicted trough level of 11.40 (population based pharmacokinetic analysis). A trough level has been ordered from the lab to be obtained before the fourth dose to confirm and adjust if needed.
[2021-01-30] MEDS: cefTRIAXone 2,000 MG in sodium chloride 0.9% (plus) 50 ML 100 MG IV (07:50)
[2021-01-30] MEDS: iron polysaccharide complex 150 mg Capsule PO ×2 (07:51→17:02)
[2021-01-30] MEDS: vancomycin 1,500 MG/300 ML PIGGYBACK 150 MG IV (09:58)
[2021-01-30] MEDS: cholecalciferol (vitamin D3) 1,000 unit Tablet 1000 UNIT PO (10:00)
[2021-01-30] MEDS: levothyroxine 75 mcg Tablet PO (10:00)
[2021-01-30] MEDS: sennosides-docusate Tablet 2 TAB PO ×2 (10:00→17:02)
[2021-01-30] MEDS: CELEcoxib 200 mg Capsule PO ×2 (10:01→17:02)
[2021-01-30] MEDS: lisinopril 10 mg Tablet PO (10:01)
[2021-01-30] MEDS: multivitamin therapeutic Tablet 1 TAB PO (10:01)
[2021-01-30] MEDS: aspirin 325 mg EC Tablet PO (10:01)
[2021-01-30] MEDS: sodium chloride 0.9% 100 mL Bag 50 ML IV (15:38)
--- NOTE | 2021-01-30 17:05 | P.PN_ITS ---
Subjective Subjective: Interval history: Patient is seen in her room, and she seems in good spirits. She notes that she would like to be discharged home once appropriate therapies are determined for her. Vitals/I&O/Wt Last Vital Signs Temp 99.7 F H 01/30/21 15:24 Pulse 81 01/30/21 15:24 Resp 16 01/30/21 15:24 BP 123/51 01/30/21 15:24 Pulse Ox 92 01/30/21 12:29 01/30/21 01/30/21 01/30/21 06:59 14:59 22:59 Intake Total 1450 / 1450 450 / 1900 Output Total 600 / 1000 Balance -600 / 550 1450 / 1450 450 / 1900 Physical Exam Const: COMMON NORMALS: no acute distress, average body habitus, patient oriented x3 and alert GENERAL APPEARANCE: cooperative and comfortable ORIENTATION/CONSCIOUSNESS: Yes awake HENMT: COMMON NORMALS: normocephalic and atraumatic HEAD & SCALP: normocephalic and atraumatic Eye: GENERAL EYE: appearance normal, both eyes and all related structures Chest: COMMONS NORMALS: normal inspection of the chest Resp: COMMON NORMALS: normal respiratory effort EFFORT & INSPECTION: Yes able to speak in complete sentences and Yes symmetric chest movement Extremity: LEFT LOWER EXTREMITY: Yes knee joint (Dressing is removed, wound is benign) Left knee: Yes inspection (No ecchymosis), Yes palpation (Minimal tenderness), Yes ROM (Flexes to 30 degrees), Yes neurovascular exam (Intact distally) and Yes other (No drainage) Neuro: COMMON NORMALS: patient oriented x3 SENSORIUM/ORIENTATION: Yes alert Psych: COMMON NORMALS: mental status grossly normal APPEARANCE: Yes grossly normal ATTITUDE: Yes calm and Yes engaged ATTENTION/CONCENTRATION: Yes attention grossly intact Skin: COMMON NORMALS: no rashes or lesions noted GENERAL SKIN EXAM: no rashes or lesions noted Data : 01/30/21 02:50 01/30/21 02:50 Micro: Microbiology 01/29/21 18:00 Gram Stain - Final Knee - Left A&P Assessment and plan (1) Postoperative wound dehiscence: Patient presented complaining of a very small hole in the midportion of her incision. She stated that it had been draining a serosanguineous type of fluid. It never appeared purulent. She also states this knee was hurting more than her opposite knee since her surgery. I asked her to come to the hospital for wound dehiscence. Upon commencing the surgical procedure, I was able to easily enter the patient's incision in the area of dehiscence. We then extended the incision. There was serosanguineous fluid with no evidence of purulence upon entry. Unfortunately, I was able to place my finger directly into the joint through the patient's previous medial arthrotomy repair. Medial arthrotom y was again accomplished. Evaluation of the knee demonstrated no evidence of obvious infection. Once again there was no purulence. There was inflammatory tissue which was removed. A complete synovectomy was performed and cultures were obtained. Vancomycin was given after cultures were obtained. Today, there were noted to be rare gram-positive cocci in chains on Gram stain, but the culture remains without growth at this time. The patient was placed in a knee immobilizer, however, this was just for protection in the immediate postoperative period. She is now able to straight leg raise without difficulty even for dressing removal. I will allow her to be out of the knee immobilizer unless the knee begins to swell or become problematic. She is in agreement with this plan. She did require packed red blood cells today for an H&H of 6.6/22.2. Additionally, I talked with the hospitalist team, and we will be transferring her attending care to their service as she remains hospitalized for adjustment of antibiotics and medical management. Status: Acute Qualifiers: Encounter type: initial encounter Qualified Code(s): T81.31XA - Disruption of external operation (surgical) wound, not elsewhere classified, initial encounter (2) Status post total left knee replacement not using cement: Status: Acute Attestations Medical Necessity Statement*: Patient requires ongoing inpatient admission for postoperative treatment including antibiotic therapies. Coding Level of Care Code Acute Paper Folder for [facility] Fwd Exam Comprehensive Diagnoses Postoperative wound dehiscence T81.31XA Encounter type: initial encounter Status post total left knee replacement not using cement Z96.652
--- NOTE | 2021-01-30 20:15 | P.PN_ITS ---
Subjective Subjective: Interval history: She is doing well. Denies any new developments. Feeling better today. Tolerating blood transfusion without problems. Vitals/I&O/Wt Last Vital Signs Temp 99.0 F 01/30/21 18:51 Pulse 93 01/30/21 18:51 Resp 16 01/30/21 18:51 BP 146/69 01/30/21 18:51 Pulse Ox 92 01/30/21 12:29 01/30/21 01/30/21 01/30/21 06:59 14:59 22:59 Intake Total 1450 / 1450 1160 / 2610 Output Total 600 / 1000 Balance -600 / 550 1450 / 1450 1160 / 2610 Physical Exam Const: COMMON NORMALS: no acute distress and patient oriented x3 HENMT: COMMON NORMALS: oropharynx normal Neck/C-Spine: COMMON NORMALS: no JVD Resp: COMMON NORMALS: normal respiratory effort and clear to auscultation bilaterally AUSCULTATION: clear to auscultation bilaterally Cardio: COMMON NORMALS: no JVD, regular rhythm, S1 normal heart sound present, S2 normal heart sound present and No murmurs present (Cardio) RHYTHM: regular rhythm HEART SOUNDS: S1 normal heart sound present and S2 normal heart sound present GI: COMMON NORMALS: Normal to inspection, nondistended, normoactive bowel sounds present, Soft to palpation and non-tender PALPATION: Yes Soft to palpation Extremity: COMMON NORMALS: no joint enlargement and no pedal edema OTHER: Left leg with dressing, Rogers wrap. Cooling pack on. Some swelling at the knee, no erythema extending proximally. Neuro: COMMON NORMALS: patient oriented x3 and moves all extremities Skin: COMMON NORMALS: no rashes or lesions noted GENERAL SKIN EXAM: no rashes or lesions noted Data : 01/30/21 02:50 01/30/21 02:50 Micro: Microbiology 01/29/21 18:00 Gram Stain - Final Knee - Left A&P Assessment and plan (1) Postoperative wound dehiscence: GPC on Gram stain. Follow-up culture. Continue antibiotics. 01/29 un derwent medial arthrotomy, with ablation of the knee showing no obvious infection. No purulence. Inflammatory tissue removed. Underwent synovectomy. Cultures collected. Status: Acute Qualifiers: Encounter type: initial encounter Qualified Code(s): T81.31XA - Disruption of external operation (surgical) wound, not elsewhere classified, initial encounter (2) Status post total left knee replacement not using cement: Status: Acute Additional A&P Information Acute blood loss anemia - Post op Status post 1 unit PBC transfusion. Recheck hemoglobin requested. Hypythyroidism Levothyroxine 75 mcg po daily DVT ppx Hold due to anemia Attestations Medical Necessity Statement*: Continue admission for cyst management following wound dehiscence of left knee following TKA, status post reevaluation, synovectomy, continuing IV antibiotics. Coding Level of Care Code Acute Washery Boss for Isac Chong Diagnoses Postoperative wound dehiscence T81.31XA Encounter type: initial encounter Status post total left knee replacement not using cement Z96.652
[2021-01-30] MEDS: acetaminophen 500 mg Tablet 1000 MG PO (21:03)
[2021-01-30 21:55] LABS: Hemoglobin 7.8 g/dL (11.5-15.3)
[2021-01-31] VITALS (7 sets, daily range): BP systolic 129–159; BP diastolic 61–73; PULSE 76–89; RESP 14–18; TEMP 36.8–37.6; O2SAT 96–98
[2021-01-31 03:05] LABS: Basophils % 0.5 %; Eosinophils # 0.4 10^3/uL (0.0-0.8); Eosinophils % 4.3 %; Hematocrit 24.8 % (37.0-47.0); Hemoglobin 7.6 g/dL (11.5-15.3); Lymphocytes # 1.8 10^3/uL (0.8-4.8); Lymphocytes % 22.2 %; Mean Corpuscular HGB Conc 30.6 g/dL (30.0-36.0); Mean Corpuscular Hemoglobin 30.3 pg (28.0-34.0); Mean Corpuscular Volume 98.8 fL (81-99); Mean Platelet Volume 10.4 fL (7.4-10.4); Monocytes # 0.8 10^3/uL (0.2-0.9); Monocytes % 10.1 %; Neutrophils # 5.03 10^3/uL (1.8-7.7); Neutrophils % 62.3 %; Nucleated Red Blood Cells % 0 %; Platelet Count 168 10^3/cmm (130-400); Red Blood Count 2.51 10^6/uL (4.1-5.3); White Blood Count 8.1 10^3/uL (4.0-10.0)
[2021-01-31] MEDS: acetaminophen 500 mg Tablet 1000 MG PO ×3 (03:26→21:21)
[2021-01-31 03:27] LABS: Alanine Aminotransferase 15 U/L (0-33); Alkaline Phosphatase 66 IU/L (35-105); Anion Gap 11.7 (5-19); Aspartate Amino Transferase 12 U/L (0-32); Blood Urea Nitrogen 23 mg/dL (8-23); Calcium 7.4 mg/dL (8.5-10.5); Carbon Dioxide 23 mmol/L (22-29); Chloride 111 mmol/L (98-107); Globulin 2.2 g/dL (1.3-4.6); Glucose 141 mg/dL (65-115); Osmolality Calculated 300 mOsm/kg (285-295); Potassium 3.7 mmol/L (3.5-5.1); Sodium 142 mmol/L (136-145); Total Bilirubin 0.3 mg/dL (0.15-1.2); Total Protein 5.2 g/dL (6.6-8.7)
[2021-01-31] MEDS: cefTRIAXone 2,000 MG in sodium chloride 0.9% (plus) 50 ML 100 MG IV (05:24)
[2021-01-31] MEDS: iron polysaccharide complex 150 mg Capsule PO ×2 (09:06→17:53)
[2021-01-31] MEDS: levothyroxine 75 mcg Tablet PO (09:06)
[2021-01-31] MEDS: cholecalciferol (vitamin D3) 1,000 unit Tablet 1000 UNIT PO (09:06)
[2021-01-31] MEDS: calcium carbonate 500 mg Chew Tablet 1000 MG PO ×2 (09:06→17:53)
[2021-01-31] MEDS: sennosides-docusate Tablet 2 TAB PO ×2 (09:06→17:53)
[2021-01-31] MEDS: lisinopril 10 mg Tablet PO (09:06)
[2021-01-31] MEDS: multivitamin therapeutic Tablet 1 TAB PO (09:06)
[2021-01-31] MEDS: CELEcoxib 200 mg Capsule PO ×2 (09:06→17:53)
[2021-01-31] MEDS: aspirin 325 mg EC Tablet PO (09:06)
[2021-01-31] MEDS: vancomycin 1,500 MG/300 ML PIGGYBACK 150 MG IV (09:07)
[2021-01-31] MEDS: chlorhexidine gluconate 0.12% Btl 473 mL 30 ML MUCOUS MEM ×4 (09:08→21:22)
--- NOTE | 2021-01-31 21:40 | PM.PN ---
Subjective Subjective: Interval history: Still some soreness in the left knee. Mild swelling persists. No drainage. Otherwise doing well. Denies chest pain or trouble breathing. Vitals/I&O/Wt Last Vital Signs Temp 98.2 F 01/31/21 19:17 Pulse 83 01/31/21 19:17 Resp 18 01/31/21 19:17 BP 159/73 01/31/21 19:17 Pulse Ox 98 01/31/21 19:17 01/31/21 01/31/21 01/31/21 06:59 14:59 22:59 Intake Total 530 / 3140 780 / 780 240 / 1020 Output Total 1050 / 1200 Balance -520 / 1940 780 / 780 240 / 1020 Physical Exam Const: COMMON NORMALS: no acute distress and patient oriented x3 HENMT: COMMON NORMALS: oropharynx normal Neck/C-Spine: COMMON NORMALS: no JVD Resp: COMMON NORMALS: normal respiratory effort and clear to auscultation bilaterally AUSCULTATION: clear to auscultation bilaterally Cardio: COMMON NORMALS: no JVD, regular rhythm, S1 normal heart sound present, S2 normal heart sound present and No murmurs present (Cardio) RHYTHM: regular rhythm HEART SOUNDS: S1 normal heart sound present and S2 normal heart sound present GI: COMMON NORMALS: Normal to inspection, nondistended, normoactive bowel sounds present, Soft to palpation and non-tender PALPATION: Yes Soft to palpation Extremity: COMMON NORMALS: no joint enlargement and no pedal edema OTHER: Mild swelling at the knee, no erythema extending proximally. Clean dressing. Neuro: COMMON NORMALS: patient oriented x3 and moves all extremities Skin: COMMON NORMALS: no rashes or lesions noted GENERAL SKIN EXAM: no rashes or lesions noted Data : 01/31/21 02:10 01/31/21 02:10 Micro: Microbiology 01/29/21 18:00 Gram Stain - Final Knee - Left Anaerobic Culture - Preliminary Wound Culture - Preliminary A&P Assessment and plan (1) Postoperative wound dehiscence: Continue IV antibiotics at this time. Given GPC on Gram stain, please obtain infectious disease consultation if possible/available this coming week. Follow-up culture. 01/29 underwent medial arthrotomy, with ablation of the knee showing no obvious infection. No purulence. Inflammatory tissue removed. Underwent synovectomy. Cultures collected. Status: Acute Qualifiers: Encounter type: initial encounter Qualified Code(s): T81.31XA - Disruption of external operation (surgical) wound, not elsewhere classified, initial encounter (2) Status post total left knee replacement not using cement: Status: Acute Additional A&P Information Acute blood loss anemia - Post op Status post 1 unit PBC transfusion. Responded well to transfusion. Hypythyroidism Levothyroxine 75 mcg po daily DVT ppx Hold due to anemia Attestations Medical Necessity Statement*: Continue admission for assessment of management of wound dehiscence of left knee TKA, gram-positive cocci on Gram stain with possible infection. Coding Level of Care Code Acute Chronic Disease Manager for Isac Chong Diagnoses Postoperative wound dehiscence T81.31XA Encounter type: initial encounter Status post total left knee replacement not using cement Z96.652
--- NOTE | 2021-01-31 23:00 | PC.NURSE ---
IV removed, replace in am Pt pulled IV out, no meds due tonight, will replace in am, pt refusing to allow replacement right now.
[2021-02-01] VITALS (7 sets, daily range): BP systolic 121–168; BP diastolic 62–103; PULSE 69–89; RESP 16–18; TEMP 36.6–37.3; O2SAT 97–99
[2021-02-01 02:39] LABS: Basophils % 0.5 %; Eosinophils # 0.5 10^3/uL (0.0-0.8); Eosinophils % 6.4 %; Hematocrit 25.1 % (37.0-47.0); Hemoglobin 7.9 g/dL (11.5-15.3); Lymphocytes # 1.8 10^3/uL (0.8-4.8); Lymphocytes % 21.5 %; Mean Corpuscular HGB Conc 31.5 g/dL (30.0-36.0); Mean Corpuscular Hemoglobin 31.6 pg (28.0-34.0); Mean Corpuscular Volume 100.4 fL (81-99); Mean Platelet Volume 10.4 fL (7.4-10.4); Monocytes # 0.7 10^3/uL (0.2-0.9); Monocytes % 8.2 %; Neutrophils # 5.21 10^3/uL (1.8-7.7); Neutrophils % 62.6 %; Nucleated Red Blood Cells % 0 %; Platelet Count 179 10^3/cmm (130-400); Red Cell Distribution Width 15.7 % (12.1-15.1); White Blood Count 8.3 10^3/uL (4.0-10.0)
[2021-02-01 03:19] LABS: Alanine Aminotransferase 14 U/L (0-33); Alkaline Phosphatase 65 IU/L (35-105); Anion Gap 15.9 (5-19); Aspartate Amino Transferase 12 U/L (0-32); Blood Urea Nitrogen 19 mg/dL (8-23); Calcium 7.6 mg/dL (8.5-10.5); Carbon Dioxide 21 mmol/L (22-29); Chloride 110 mmol/L (98-107); Globulin 2.4 g/dL (1.3-4.6); Glucose 201 mg/dL (65-115); Osmolality Calculated 304 mOsm/kg (285-295); Potassium 3.9 mmol/L (3.5-5.1); Sodium 143 mmol/L (136-145); Total Bilirubin 0.3 mg/dL (0.15-1.2); Total Protein 5.4 g/dL (6.6-8.7)
[2021-02-01] MEDS: iron polysaccharide complex 150 mg Capsule PO ×2 (09:25→17:46)
[2021-02-01] MEDS: calcium carbonate 500 mg Chew Tablet 1000 MG PO ×2 (09:26→17:46)
[2021-02-01] MEDS: levothyroxine 75 mcg Tablet PO (09:26)
[2021-02-01] MEDS: multivitamin therapeutic Tablet 1 TAB PO (09:26)
[2021-02-01] MEDS: CELEcoxib 200 mg Capsule PO ×2 (09:26→17:46)
[2021-02-01] MEDS: acetaminophen 500 mg Tablet 1000 MG PO ×2 (09:26→20:22)
[2021-02-01] MEDS: cholecalciferol (vitamin D3) 1,000 unit Tablet 1000 UNIT PO (09:26)
[2021-02-01] MEDS: lisinopril 10 mg Tablet PO (09:26)
[2021-02-01] MEDS: aspirin 325 mg EC Tablet PO (09:26)
[2021-02-01] MEDS: chlorhexidine gluconate 0.12% Btl 473 mL 30 ML MUCOUS MEM ×4 (09:29→21:09)
--- NOTE | 2021-02-01 11:36 | PM.PN ---
Subjective Subjective: Interval history: Patient states she is ready for discharge to home. Her knee is improving. We have a lengthy discussion regarding why this may have occurred. Medications: Reviewed: Yes Vitals/I&O/Wt Last Vital Signs Temp 98.6 F 02/01/21 08:00 Pulse 77 02/01/21 08:00 Resp 18 02/01/21 08:00 BP 138/62 02/01/21 08:00 Pulse Ox 97 02/01/21 08:00 01/31/21 02/01/21 02/01/21 22:59 06:59 14:59 Intake Total 590 / 1370 240 / 240 Output Total 0 / 0 Balance 590 / 1370 240 / 240 Physical Exam Const: COMMON NORMALS: no acute distress, average body habitus, patient oriented x3 and alert GENERAL APPEARANCE: cooperative and comfortable ORIENTATION/CONSCIOUSNESS: Yes awake HENMT: COMMON NORMALS: normocephalic and atraumatic HEAD & SCALP: normocephalic and atraumatic Eye: GENERAL EYE: appearance normal, both eyes and all related structures Chest: COMMONS NORMALS: normal inspection of the chest Resp: COMMON NORMALS: normal respiratory effort EFFORT & INSPECTION: Yes able to speak in complete sentences and Yes symmetric chest movement Extremity: LEFT LOWER EXTREMITY: Yes knee joint (Dressing is removed. There is no drainage.) Left knee: Yes inspection (No redness or erythema.), Yes palpation (Minimal.) and Yes neurovascular exam (Intact distally.) Neuro: COMMON NORMALS: patient oriented x3 SENSORIUM/ORIENTATION: Yes alert Psych: COMMON NORMALS: mental status grossly normal APPEARANCE: Yes grossly normal ATTITUDE: Yes calm and Yes engaged ATTENTION/CONCENTRATION: Yes attention grossly intact Skin: COMMON NORMALS: no rashes or lesions noted GENERAL SKIN EXAM: no rashes or lesions noted Data : 02/01/21 02:26 02/01/21 02:26 Micro: Microbiology 01/29/21 18:00 Gram Stain - Final Knee - Left Anaerobic Culture - Preliminary Wound Culture - Preliminary A&P Assessment and plan (1) Postoperative wound dehiscence: Patient is seen and evaluated today. There is no evidence of infection. The cultures remain negative in spite of gram-positive cocci in chains, rare . Currently, she is on the medical service and will require appropriate antibiotic treatments. Dr. Ayala noted that he would place a consult to Dr. Babcock regarding long-term care. The patient and I discussed issues related to this including IV antibiotics for a set period of time with discontinuation. Antibiotics followed by long-term suppressive care. Also, I discussed with the patient the possible need for removal of her prosthesis to eradicate depending upon what the cultures finally grow. The patient understands. She is anxious to get home. This will be determined by her cultures, and she understands that. 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
[2021-02-01] MEDS: vancomycin 1,500 MG/300 ML PIGGYBACK 150 MG IV (11:57)
--- NOTE | 2021-02-01 15:07 | PM.PN ---
Subjective Subjective: Interval history: Pt anxiously awating discharge. No complaints. Vitals/I&O/Wt Last Vital Signs Temp 98.6 F 02/01/21 08:00 Pulse 77 02/01/21 08:00 Resp 18 02/01/21 08:00 BP 138/62 02/01/21 08:00 Pulse Ox 97 02/01/21 08:00 02/01/21 02/01/21 02/01/21 06:59 14:59 22:59 Intake Total 240 / 240 Balance 240 / 240 Physical Exam Narrative: EXAM NARRATIVE: alert oriented NAD H: reg nl S1 and S2 L: clear without w/r/r A: soft nt/nd normoactive BS E: L knee with bandages. no significant edema. Per pt and RN improving. Data : 02/01/21 02:26 02/01/21 02:26 Micro: Microbiology 01/29/21 18:00 Gram Stain - Final Knee - Left Anaerobic Culture - Preliminary Wound Culture - Preliminary A&P Assessment and plan (1) Postoperative wound dehiscence: Continue IV antibiotics at this time. Given GPC on Gram stain. Request for ID consult. D/W Dr. Babcock. She will see [facility]. Cultures all negative to date. 01/29 underwent medial arthrotomy, with ablation of the knee showing no obvious infection. No purulence. Inflammatory tissue removed. Underwent synovectomy. Cultures collected. Status: Acute Qualifiers: Encounter type: initial encounter Qualified Code(s): T81.31XA - Disruption of external operation (surgical) wound, not elsewhere classified, initial encounter (2) Status post total left knee replacement not using cement: Status: Acute Additional A&P Information Acute blood loss anemia - Post op Status post 1 unit PBC transfusion. Responded well to transfusion. Hgb rising now at 7.9 without symptoms. Hypythyroidism Levothyroxine 75 mcg po daily DVT ppx Hold due to anemia IV access: none at this time. Ordered to start new IV and give abx as ordered. Await ID recommendations as far as PICC. May need to use standard IV for a few days as outpt if indicated. Attestations Medical Necessity Statement*: IV antibiotics and ID consult to determine next course of action Coding Level of Care Code Acute Baker Bench for Isac Chong Diagnoses Postoperative wound dehiscence T81.31XA Encounter type: initial encounter Status post total left knee replacement not using cement Z96.652
[2021-02-02] MEDS: acetaminophen 500 mg Tablet 1000 MG PO ×2 (02:34→12:35)
[2021-02-02 03:04] LABS: Alanine Aminotransferase 17 U/L (0-33); Albumin Level 3.4 g/dL (3.5-5.2); Alkaline Phosphatase 76 IU/L (35-105); Anion Gap 14.1 (5-19); Aspartate Amino Transferase 16 U/L (0-32); Blood Urea Nitrogen 19 mg/dL (8-23); Calcium 8.2 mg/dL (8.5-10.5); Carbon Dioxide 25 mmol/L (22-29); Chloride 107 mmol/L (98-107); Globulin 2.7 g/dL (1.3-4.6); Glucose 143 mg/dL (65-115); Osmolality Calculated 299 mOsm/kg (285-295); Potassium 4.1 mmol/L (3.5-5.1); Sodium 142 mmol/L (136-145); Total Bilirubin 0.2 mg/dL (0.15-1.2); Total Protein 6.1 g/dL (6.6-8.7)
[2021-02-02 03:47] VITALS: BP 151/77; PULSE 77; RESP 18; TEMP 36.8; O2SAT 99
[2021-02-02] MEDS: cefTRIAXone 2,000 MG in sodium chloride 0.9% (plus) 50 ML 100 MG IV (05:35)
[2021-02-02 08:00] VITALS: BP 144/73; PULSE 75; RESP 17; TEMP 36.9; O2SAT 100
--- NOTE | 2021-02-02 08:20 | P.CONIM_ITS ---
Providers/Reason For Consult Consulting Physician/Specialty*: Maylin Babcock MD/Infectious Disease Reason for Consult*: septic arthritis Attending Physician: Yunier Friedman DO Primary Care Provider: Jas Kc DO History of Present Illness History of Present Illness Priscila Gallegos is a 80 year old female with past medical history as outlined below who underwent total left knee arthroplasty on December 29, 2020. She followed up with Dr. Lowe on January 28, 2021 due to concerning drainage from central portion of her left knee arthroplasty wound. It was clear serous drainage at the time, initial suspicion for prepatellar fluid collection. She was taken to the OR on January 29 where she underwent irrigation and debridement of the left knee including skin subcutaneous tissue fascia and muscle. OR culture has returned with gram stain with rare gram-positive cocci in chains, no growth in culture thus far. Patient denies any fever chills or constitutional symptoms. Review of Systems General: Reports: 10 or more systems reviewed and unremarkable except in HPI and below Const: Denies: fever(s), chills or body aches Eyes: Denies: change in vision, blurry vision or photophobia ENMT: Reports: hoarseness; Denies: throat pain, enlarged tonsils, odynophagia or nasal congestion Card: Denies: chest pain, palpitations, irregular heart rhythm, edema, swelling of feet/ankles, lightheadedness, pre-syncope, dyspnea on exertion or orthopnea Resp: Denies: dyspnea, productive cough, non-productive cough, wheezing, stridor, pain on inspiration, change in phlegm color, hemoptysis or chest congestion GI: Denies: abdominal pain, nausea, vomiting, hematemesis, coffee ground emesis, dysphagia, heartburn, diarrhea, constipation, GI cramping, change in stool character, hematochezia or melena : Denies: flank pain, difficulty voiding, dysuria, urinary frequency, urinary urgency, urinary hesitancy or hematuria Musc: Denies: neck pain, back pain, extremity pain, joint swelling, joint warmth or deformity Neuro: Denies: headache(s), numbness in extremities, weakness in extremities, sensory changes, difficulty walking, frequent falls, dizziness, vertigo, behavioral changes, Slurred speech present or seizure-like activity Psych: Denies: anxiety, depression, suicidal ideation or homicidal ideation Endo: Denies: polyuria, polydipsia, tired all the time, cold intolerance or hot flashes Steven/Lymph: Denies: easy bruising or easy bleeding Meds/Allergies Home Medications and Allergies Home Medications Medication Instructions Recorded Confirmed Last Taken Type levothyroxine 75 mcg capsule 75 mcg PO DAILY 10/05/20 01/29/21 01/29/21 History lisinopril 10 mg tablet 10 mg PO DAILY 10/05/20 01/29/21 01/28/21 History Multivitamin Women 50 Plus 1 tab PO DAILY 10/13/20 01/29/21 01/28/21 History celecoxib [Celebrex] 200 mg PO BID #60 cap 10/21/20 01/29/21 01/28/21 Rx vit A-vit C-vit [id number] 1 tab PO DAILY 12/29/20 01/29/21 01/28/21 History acetaminophen 1,000 mg PO Q8H #30 tab 02/02/21 Unknown Rx aspirin 325 mg PO DAILY #30 tab 02/02/21 Unknown Rx cholecalciferol (vitamin D3) 1,000 unit PO DAILY #30 tab 02/02/21 Unknown Rx mupirocin 1 applic NASAL BID #1 g 02/02/21 Unknown Rx polysaccharide iron complex 150 mg PO BIDWM #60 cap 02/02/21 Unknown Rx [Ferrex 150] vancomycin-water inject (PEG) 1,500 mg CONTINUOUS IV INFUSION 02/02/21 Unknown Rx Q24H #40 ml Allergies Allergy/AdvReac Type Severity Reaction Status Date / Time Penicillins Allergy Intermediate rash Verified 01/28/21 16:07 Sulfa (Sulfonamide Allergy Intermediate rash Verified 01/28/21 16:07 Antibiotics) etodolac Allergy rash Verified 01/28/21 16:07 naproxen [From Aleve] Allergy rash Verified 01/28/21 16:07 Current Medications Current Medications Generic Name Dose Route Start Last Admin Trade Name Shaunq PRN Reason Stop Dose Admin Acetaminophen 1,000 mg 01/30/21 19:30 02/02/21 02:34 Acetaminophen 500 Mg Tablet PO 1,000 mg Q8H GEORGE Administration Aspirin 325 mg 01/30/21 09:00 02/01/21 09:26 Aspirin 325 Mg Ec Tablet PO 325 mg DAILY GEORGE Administration Calcium Carbonate 1,000 mg 01/30/21 09:00 02/01/21 17:46 Calcium Carbonate 500 Mg Chew Tablet PO 1,000 mg BID GEORGE Administration Celecoxib 200 mg 01/30/21 09:00 02/01/21 17:46 Celecoxib 200 Mg Capsule PO 200 mg BID GEORGE Administration Chlorhexidine Gluconate 30 ml 01/29/21 21:15 02/01/21 21:09 Chlorhexidine Gluconate 0.12% Btl 473 Ml MUCOUS MEM 30 ml QID GEORGE Administration Hydromorphone HCl 0.5 mg 01/29/21 23:19 01/29/21 23:49 Hydromorphone 1 Mg/Ml Inj 1 Ml IVP 0.5 mg Q4H PRN Administration severe pain Ceftriaxone Sodium 2,000 mg/ 50 mls @ 100 mls/hr 01/30/21 05:45 02/02/21 07:47 Sodium Chloride IV Infused Q24H GEORGE Infusion Protocol Vancomycin/PEG/NADA/Lysine/Water 1,500 mg in 300 mls @ 150 mls/hr 01/30/21 10:00 02/01/21 15:57 Vancocin IV Infused Q24H [facility] Infusion Levothyroxine Sodium 75 mcg 01/30/21 09:00 02/01/21 09:26 Levothyroxine 75 Mcg Tablet PO 75 mcg DAILY GEORGE Administration Lisinopril 10 mg 01/30/21 09:00 02/01/21 09:26 Lisinopril 10 Mg Tablet PO 10 mg DAILY GEORGE Administration Multivitamins Therapeutic 1 tab 01/30/21 09:00 02/01/21 09:26 Multivitamin Therapeutic Tablet PO 1 tab DAILY [facility] Administration Mupirocin 1 applic 01/30/21 09:00 02/01/21 17:46 Mupirocin Oint 22 Gm NASAL 02/04/21 08:59 Not Given BID [facility] Protocol Oxycodone HCl 5 mg 01/29/21 21:15 01/30/21 10:48 Oxycodone 5 Mg Ir Tab/Cap PO 5 mg Q4H PRN Administration MODERATE PAIN Polysaccharide Iron Complex 150 mg 01/30/21 08:00 02/01/21 17:46 Iron Polysaccharide Complex 150 Mg Capsule PO 150 mg BIDWM [facility] Administration Senna/Docusate Sodium 2 tab 01/30/21 09:00 02/01/21 17:46 Sennosides-Docusate Tablet PO Not Given BID GEORGE Vitamin D 1,000 unit 01/30/21 09:00 02/01/21 09:26 Cholecalciferol (Vitamin D3) 1,000 Unit Tablet PO 1,000 unit DAILY GEORGE Administration PFSH Acute PFSH: Family History Mother Cancer Father Cancer Social History Alcohol intake: never Vitals/I&O/Wt Last Vital Signs Temp 98.2 F 02/02/21 03:47 Pulse 77 02/02/21 03:47 Resp 18 02/02/21 03:47 BP 151/77 02/02/21 03:47 Pulse Ox 99 02/02/21 03:47 02/01/21 02/02/21 02/02/21 22:59 06:59 14:59 Intake Total 660 / 1260 100 / 1360 50 / 50 Output Total 750 / 750 Balance 660 / 1260 -650 / 610 50 / 50 Physical Exam Narrative: EXAM NARRATIVE: GEN: Awake, alert and oriented, no acute distress CVS: S1S2 N RS: CTA B/L Abd: Soft, nt/nd , bs+ 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: no focal neuro deficits Data Micro: Micro: Microbiology 01/29/21 18:00 Gram Stain - Final Knee - Left Anaerobic Culture - Preliminary Wound Culture - Pr eliminary A&P Assessment and plan (1) 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
[2021-02-02] MEDS: levothyroxine 75 mcg Tablet PO (09:48)
[2021-02-02] MEDS: cholecalciferol (vitamin D3) 1,000 unit Tablet 1000 UNIT PO (09:48)
[2021-02-02] MEDS: multivitamin therapeutic Tablet 1 TAB PO (09:48)
[2021-02-02] MEDS: lisinopril 10 mg Tablet PO (09:48)
[2021-02-02] MEDS: calcium carbonate 500 mg Chew Tablet 1000 MG PO (09:48)
[2021-02-02] MEDS: CELEcoxib 200 mg Capsule PO (09:48)
[2021-02-02] MEDS: aspirin 325 mg EC Tablet PO (09:48)
[2021-02-02] MEDS: chlorhexidine gluconate 0.12% Btl 473 mL 30 ML MUCOUS MEM (09:49)
[2021-02-02] MEDS: mupirocin oint 22 gm 1 APPLIC NASAL (09:51)
[2021-02-02 10:17] LABS: C Reactive Protein 42.2 mg/L (0.0-4.9); Vancomycin Trough 10.3 ug/mL (10-15)
[2021-02-02 10:31] LABS: Erythrocyte Sedimentation Rate 43 mm/hr (0-15)
[2021-02-02 12:00] VITALS: BP 153/70; PULSE 74; RESP 18; TEMP 37; O2SAT 100
--- NOTE | 2021-02-02 12:20 | P.DS_ITS ---
Discharge Providers Date of Admission: 01/29/21 18:32 Date of Discharge: February 02, 2021 Attending Provider at Admission: Susan Salas MD Attending Provider at Discharge: Yunier Friedman DO Primary Care Provider: Jas Kc DO Diagnoses at Discharge Discharge Diagnosis (1) Prosthetic joint infection: Status: Acute Reason for Visit Reason for Visit: left knee [facility] Hospital Course Hospital Course 71-year-old female status post left TKA on December 29. [facility] called Dr. Lowe's office about patient with drainage from central portion of her left total knee arthroplasty wound. Dr. Lowe elected to schedule the patient for irrigation and debridement of skin and primary closure of what appears to be a prepatellar fluid collection On patient was take in back to the OR for irrigation and debridement of left knee including skin and subcutaneous tissues fascia and muscles additionally she had a revision tibial polyethylene and polyethylene exchange. Initial Gram stain showed gram-positive cocci no aerobic or anaerobic growth has been seen. ID consult obtained and recommends treating the Gram stain with full course 6 weeks of vancomycin. Arrangements are being made for home infusion and PICC line. Patient can be discharged once this is completed. Physical Exam Narrative: EXAM NARRATIVE: Patient in no acute distress at time of exam Heart is regular rate and rhythm normal S1-S2 without murmur Lungs clear to auscultation without wheezes rales or rhonchi Abdomen soft nontender nondistended positive bowel sounds Extremity left extremity with surgical tape and bandage. I viewed this yesterday and per nurse no drainage no erythema no issues. Discharge Data Data Completed and Pending: Pending at discharge Category Date Time Status Anaerobic Culture Routine Lab 01/29/21 18:00 Results Wound Culture and Gram Stain Routin e Lab 01/29/21 18:00 Results Labs from last 24 hours 02/02/21 02/02/21 02/02/21 09:45 09:45 09:45 ESR 43 H Sodium Potassium Chloride Carbon Dioxide Anion Gap BUN Creatinine GFR Calculation Glucose Calculated Osmolal ity Calcium Total Bilirubin AST ALT Alkaline Phosphata se C-Reactive Protein 42.2 H Total Protein Albumin Globulin Vancomycin Trough 10.3 02/02/21 02:30 ESR Sodium 142 Potassium 4.1 Chloride 107 Carbon Dioxide 25 Anion Gap 14.1 BUN 19 Creatinine 0.8 GFR Calculation Not Reportable Glucose 143 H Calculated Osmolal ity 299 H Calcium 8.2 L Total Bilirubin 0.2 AST 16 ALT 17 Alkaline Phosphata se 76 C-Reactive Protein Total Protein 6.1 L Albumin 3.4 L Globulin 2.7 Vancomycin Trough Vitals: Last Vital Signs Temp 98.5 F 02/02/21 08:00 Pulse 75 02/02/21 08:00 Resp 17 02/02/21 08:00 BP 144/73 02/02/21 08:00 Pulse Ox 100 02/02/21 08:00 Discharge Plan Discharge Patient Disposition: Home Condition: Stable Prescriptions: New acetaminophen 500 mg Tablet 1,000 mg PO Q8H Qty: 30 RF: 0 aspirin 325 mg Tablet,Delayed Release (Dr/Ec) 325 mg PO DAILY Qty: 30 RF: 0 polysaccharide iron complex [Ferrex 150] 150 mg iron Capsule 150 mg PO BIDWM Qty: 60 RF: 0 cholecalciferol (vitamin D3) 25 mcg (1,000 unit) Tablet 1,000 unit PO DAILY Qty: 30 RF: 0 mupirocin 2 % Ointment 1 applic nasal BID Qty: 1 RF: 0 vancomycin-water inject (PEG) 1.5 gram/300 mL Piggyback 1,500 mg continuous IV infusion Q24H Qty: 40 RF: 0 Continued levothyroxine 75 mcg capsule 75 mcg PO DAILY RF: 0 lisinopril 10 mg tablet 10 mg PO DAILY RF: 0 Multivitamin Women 50 Plus 8 mg iron-400 mcg-300 mcg Tablet 1 tab PO DAILY RF: 0 celecoxib [Celebrex] 200 mg capsule 200 mg PO BID Qty: 60 RF: 1 vit A-vit C-vit F-[id number]-[id number] 7,160-113-100 [id number] Tablet 1 tab PO DAILY RF: 0 Discontinued acetaminophen 650 mg Tablet Extended Release 650 mg PO Q12H RF: 0 Hold Instructions: Resume on 11/07/20. Discharge Orders: Discharge Order (Routine); Ordered 02/02/21 Ordered By: Yunier Friedman Referrals: Susan Salas MD [Physician] - 02/15/21 8:30 am Discharge Diet: Regular Discharge Activity: Limit activity as instructed, Use walker/crutches as instructed and As per PT/OT instructions Activity Restrictions/Additional Instructions: Ice to left knee as needed. Limit flexion to 60 degrees. Keep wound covered. Knee immobilizer only for comfort. Discharge Attestations Time Spent in Discharge Care*: greater than 30 min Specific Discharge Activities: educating patient, discussing with pcp/other providers, discussing with pillowcase folder/social workers/dc planners and documenting/other paperwork Quality Metrics Clinical Quality Measures During this hospital stay, did patient experience: None Coding Level of Care Code Acute Chg FW DC note Diagnoses Prosthetic joint infection T84.50XA
[2021-02-02] MEDS: vancomycin 1,500 MG/300 ML PIGGYBACK 150 MG IV (12:33)
--- NOTE | 2021-02-02 14:46 | XR_ITS ---
WS: [id number] CHEST XRAY TECHNIQUE: Portable chest. CLINICAL INFORMATION: POST PICC PLACEMENT COMPARISON: None. FINDINGS: Right PICC line with tip in the proximal SVC. No pneumothorax. Heart: Cardiomegaly. Lungs: Moderate chronic emphysematous changes. No acute pulmonary infiltrates. Bones: Mild thoracic curve. XR/XR chest 1V portable [id number] IMPRESSION: Right PICC line tip in the proximal SVC. No pneumothorax.
[2021-02-02 16:00] VITALS: BP 158/75; PULSE 80; RESP 17; TEMP 37; O2SAT 100
== END 2021-02-02 17:52 | disposition home health service (06) | DRG 486 ==
LOC: OR 19:26 → MEDSURG 21:55
PROVIDERS: Hospitalist; Internal Medicine; Student in an Organized Health Care Education/Training Program; Admitting Provider Specialist; PCP Family Medicine; Visit Provider Internal Medicine
PROC: 0SPD09Z Removal of Liner from Left Knee Joint, Open Approach (ICD-10-PCS; principal; 2021-01-29 17:50)
DX: T84.54XA Infection and inflammatory reaction due to internal left knee prosthesis, initial encounter (principal); T81.32XA Disruption of internal operation (surgical) wound, not elsewhere classified, initial encounter; D62 Acute posthemorrhagic anemia; Y79.3 Surgical instruments, materials and orthopedic devices (including sutures) associated with adverse incidents; Z96.652 Presence of left artificial knee joint; Z79.891 Long term (current) use of opiate analgesic; I10 Essential (primary) hypertension; E03.9 Hypothyroidism, unspecified; M19.90 Unspecified osteoarthritis, unspecified site
CPT/HCPCS: 36415; 36416; 36430; 36569; 71045; 80048; 80053; 80202; 82962; 85018; 85025; 85651; 86140; 86850; 86900; 86920; 87070; 87075; 87077; 87186; 87205; 87635; 97110; 97161; 97165; 97530; C1776; J0696; J1170; J2270; J2405; J2704; J2710; J3010; J3370; J3490; J7030; J7050; P9016

== ENCOUNTER 2021-02-06 15:38 | Outpatient (CLI) | payer MEDICARE, OTHER, SELFPAY ==
[2021-02-06 16:11] LABS: Alanine Aminotransferase 13 U/L (0-33); Albumin Level 3.9 g/dL (3.5-5.2); Alkaline Phosphatase 77 IU/L (35-105); Anion Gap 13.8 (5-19); Aspartate Amino Transferase 13 U/L (0-32); Blood Urea Nitrogen 18 mg/dL (8-23); Calcium 8.3 mg/dL (8.5-10.5); Carbon Dioxide 26 mmol/L (22-29); Chloride 104 mmol/L (98-107); Globulin 2.6 g/dL (1.3-4.6); Glucose 105 mg/dL (65-115); Osmolality Calculated 292 mOsm/kg (285-295); Potassium 3.8 mmol/L (3.5-5.1); Sodium 140 mmol/L (136-145); Total Bilirubin 0.2 mg/dL (0.15-1.2); Total Protein 6.5 g/dL (6.6-8.7)
== END 2021-02-06 15:39 | disposition home or self-care (01) ==
PROVIDERS: PCP Family Medicine; Visit Provider Student in an Organized Health Care Education/Training Program
DX: Z47.1 Aftercare following joint replacement surgery (principal)
CPT/HCPCS: 80053; 80202

== ENCOUNTER 2021-02-11 16:02 | Outpatient (CLI) | payer MEDICARE, OTHER, SELFPAY ==
[2021-02-11 17:38] LABS: C Reactive Protein 1.7 mg/L (0.0-4.9)
[2021-02-11 18:49] LABS: Erythrocyte Sedimentation Rate 28 mm/hr (0-15)
== END 2021-02-11 16:03 | disposition home or self-care (01) ==
LOC: LAB 16:03
PROVIDERS: PCP Family Medicine; Visit Provider Student in an Organized Health Care Education/Training Program
DX: Z47.1 Aftercare following joint replacement surgery (principal)
CPT/HCPCS: 73560; 73565; 85651; 86140

== ENCOUNTER 2021-02-17 16:10 | Outpatient (CLI) | payer MEDICARE, OTHER, SELFPAY ==
[2021-02-17 16:58] LABS: C Reactive Protein 0.7 mg/L (0.0-4.9)
[2021-02-17 17:28] LABS: Erythrocyte Sedimentation Rate 21 mm/hr (0-15)
== END 2021-02-17 16:11 | disposition home or self-care (01) ==
LOC: LAB 16:11
PROVIDERS: PCP Family Medicine; Visit Provider Student in an Organized Health Care Education/Training Program
DX: T81.31XD Disruption of external operation (surgical) wound, not elsewhere classified, subsequent encounter (principal); X58.XXXD Exposure to other specified factors, subsequent encounter
CPT/HCPCS: 85651; 86140

== ENCOUNTER 2021-02-25 09:22 | Outpatient (CLI) | payer MEDICARE, OTHER, SELFPAY ==
[2021-02-25 10:04] LABS: C Reactive Protein 0.5 mg/L (0.0-4.9)
[2021-02-25 10:27] LABS: Erythrocyte Sedimentation Rate 20 mm/hr (0-15)
== END 2021-02-25 09:23 | disposition home or self-care (01) ==
PROVIDERS: PCP Family Medicine; Visit Provider Student in an Organized Health Care Education/Training Program
DX: T81.31XA Disruption of external operation (surgical) wound, not elsewhere classified, initial encounter (principal); X58.XXXA Exposure to other specified factors, initial encounter
CPT/HCPCS: 36415; 85651; 86140

== ENCOUNTER → 2021-03-01 13:49 | Outpatient (BNVA) | payer MEDICARE, OTHER, SELFPAY | PROVIDERS: PCP Family Medicine; Visit Provider Specialist | DX: Z96.652 Presence of left artificial knee joint (principal) | CPT/HCPCS: 73560; 73565 ==

== ENCOUNTER 2021-03-02 07:46 | Day surgery (SDC) | payer MEDICARE, OTHER, SELFPAY ==
[2021-03-01 17:25] VITALS: BMI 30.4
[2021-03-02] VITALS (16 sets, daily range): BP systolic 134–170; BP diastolic 66–106; PULSE 75–108; RESP 14–23; TEMP 36.2–36.6; O2SAT 97–100
--- NOTE | 2021-03-02 08:40 | P.HPUD_ITS ---
Surgery/Procedure H&P Update DATE OF PROCEDURE: March 02, 2021 DATE H&P PERFORMED: 03/01/21 H&P UPDATE INFORMATION: I have reviewed H&P completed within last 30 days, I have examined patient prior to procedure, No changes to prior documentation and H&P is in [facility] [place] on date indicated PREOP DIAGNOSIS: Wound dehiscence left knee PLANNED PROCEDURE: Operation Date: 03/02/21 09:05 Proposed Procedures p Debridement Lower Extremity And Irrigation [id number](Left) - Susan Salas MD Related Problem List Diagnoses (1) Postoperative wound dehiscence: Qualifiers: Encounter type: initial encounter Qualified Code(s): T81.31XA - Disruption of external operation (surgical) wound, not elsewhere classified, initial encounter (2) Status post total left knee replacement not using cement:
[2021-03-02] MEDS: CELEcoxib 200 mg Capsule 400 MG PO (08:55)
[2021-03-02] MEDS: acetaminophen 1,000 MG/100 ML PIGGYBACK 400 MG IV (09:00)
[2021-03-02] MEDS: sodium chloride 0.9% 1,000 ML 30 ML IV (09:00)
--- NOTE | 2021-03-02 09:02 | P.ANESASSM_ITS ---
Pre-Anesthetic Assessment Pre-Anesthetic Assessment: Height/Weight: Height 1.7 m Weight 87.997 kg Temp Pulse Resp BP Pulse Ox 97.9 F 75 18 170/85 99 03/02/21 08:00 03/02/21 08:00 03/02/21 08:00 03/02/21 08:00 03/02/21 08:00 Preop Diagnosis: Wound dehiscence left knee Proposed Procedure: Operation Date: 03/02/21 09:05 Proposed Procedures p Debridement Lower Extremity And Irrigation [id number](Left) - Susan Salas MD Familial anesthetic complications: none Was Beta Bernarda taken within 24 hour s: N/A Was Clonidine taken within 24 hours: N/A Last intake: Intake Last Liquid Date 03/01/21 Last Liquid Time 21:00 Last Solid Date 03/01/21 Last Solid Time 18:00 Last Intake: 21:00 Social: Social History: No alcohol and No tobacco Exam: Pre-Anes Outpt Exam: alert, oriented x 3, clear to auscultation bilaterally and regular rate & rhythm Airway: Submandibular: WNL Cervical ROM: WNL MP: 1 Dentition: Partials (bottom) Pulmonary: Pulmonary: None reported CV/HEM: CV/HEM: HTN : : None reported Hepatic: Hepatic: None reported GI: GI: None reported Metabolic: Metabolic: DM (diet controlled) Musc/skel: Musc/skel: OA/DJD Neuropsych: Neuropsych: None reported Anesthetic Plan: ASA status: 2 Anesthesia: General PFSH Anesthesia PFSH: Family History Mother Cancer Father Cancer Social History Alcohol intake: never Data Anesthesia CBC & Chem 7: 03/02/21 08:49 Cardiac Studies: No Data to Display
[2021-03-02 09:07] LABS: Basophils # 0.1 10^3/uL (0.0-0.1); Eosinophils # 0.1 10^3/uL (0.0-0.8); Eosinophils % 1.8 %; Hematocrit 33.6 % (37.0-47.0); Hemoglobin 10.6 g/dL (11.5-15.3); Lymphocytes # 1.5 10^3/uL (0.8-4.8); Lymphocytes % 24.6 %; Mean Corpuscular HGB Conc 31.5 g/dL (30.0-36.0); Mean Corpuscular Hemoglobin 30.2 pg (28.0-34.0); Mean Corpuscular Volume 95.7 fl (81-99); Mean Platelet Volume 10.4 fL (7.4-10.4); Monocytes # 0.4 10^3/uL (0.2-0.9); Neutrophils # 4.07 10^3/uL (1.8-7.7); Neutrophils % 65.1 %; Nucleated Red Blood Cells % 0 %; Platelet Count 224 10^3/cmm (130-400); Red Blood Count 3.51 10^6/uL (4.1-5.3); Red Cell Distribution Width 13.6 % (12.1-15.1); White Blood Count 6.3 10^3/uL (4.0-10.0)
[2021-03-02 09:40] LABS: Alanine Aminotransferase 9 U/L (0-33); Albumin Level 4.3 g/dL (3.5-5.2); Alkaline Phosphatase 64 IU/L (35-105); Aspartate Amino Transferase 15 U/L (0-32); Blood Urea Nitrogen 24 mg/dL (8-23); Calcium 9.4 mg/dL (8.5-10.5); Carbon Dioxide 23 mmol/L (22-29); Chloride 107 mmol/L (98-107); Globulin 2.9 g/dL (1.3-4.6); Glucose 109 mg/dL (65-115); Osmolality Calculated 299 mOsm/kg (285-295); Sodium 142 mmol/L (136-145); Total Bilirubin 0.4 mg/dL (0.15-1.2); Total Protein 7.2 g/dL (6.6-8.7)
[2021-03-02 09:43] LABS: Anion Gap 16.7 (5-19); Potassium 4.7 mmol/L (3.5-5.1)
[2021-03-02] MEDS: vancomycin 1,000 MG SDV 1000 MG ×2 (09:54→09:55)
[2021-03-02] MEDS: vancomycin 1,000 MG in sodium chloride 0.9% 250 ML 250 MG IV (10:03)
[2021-03-02] MEDS: vancomycin 1,000 MG SDV 1000 MG IRRIGATION (10:06)
--- NOTE | 2021-03-02 11:50 | PM.OP ---
Operative Report Date of procedure: March 02, 2021 Pre-op Diagnosis: Wound dehiscence left knee Post-op diagnosis: same Post-op Findings: Wound dehiscence along the medial aspect of the patella with sutures present on both sides of the dehiscence. The sutures were intact without breakage. Procedure Done: Irrigation and debridement of left knee including skin and subcutaneous tissues. Wound closure in multiple layers, complex with utilization of PRP and PPP. Specimens removed/disposition: Culture of fluid and tissue Pathology: none sent Surgeon: Susan Salas Sewing Machine Operator Semiautomatic: [facility] operating room technicians Anesthesia: General (LMA, ASA 3) Estimated blood loss (mL): 25 Tourniquet time: Tourniquet was not utilized. IV fluids (mL): 900 Urine output (mL): 0 Complications: None Findings: Wound dehiscence along the medial aspect of the patella. There was no evidence of mary purulence. The knee did not appear grossly infected. Sutures were intact, but they had dehisced with suture material on both the medial and lateral aspect of the suture line. Suture and knots were intact, and they had pulled from either side of the incision. Condition: stable Disposition: PACU Brief History: This 80-year-old lady presented yesterday with new onset drainage from the left knee. She has been undergoing treatment of the knee with Dr. Babcock for previously diagnosed prosthetic knee infection. She underwent revision and debridement for this in late January. At that time, similarly, she had a small pinhole in the incision midportion. She was draining from this area. Since the time of her last irrigation and debridement followed by treatment with IV and subsequently oral antibiotics, the patient has not had pain in the knee. Only over the past 4 days or so has there been drainage from the knee Procedure: The patient was brought to the operating theater, and after undergoing adequate anesthesia per LMA, ASA 3, the left lower extremity was prepped and draped in usual fashion following placement of a tourniquet high on the leg. The leg was then draped free with the prepping accomplished with Betadine. Following exposure of the site of surgery, a surgical pause was performed. At the time of the surgical pause, we confirmed the site and side of surgery. Additionally, we confirmed the appropriate availability of antibiotic which was to be given after cultures were obtained. The availability of equipment was confirmed, and the patient's identity was verbalized as well. Following the surgical pause, the previous incision was entered centering over the patella continuing proximally and distally as necessary to allow excision of the small area of dehiscence. I was able to determine that once again, there was dehiscence along the medial arthrotomy incision from the primary total knee. Entry into the previous incision was extended to allow access for irrigation and debridement. Hemostasis was obtained using electrocautery. As noted, upon entry into the prepatellar bursal area, palpation demonstrated dehiscence along the midportion of the median parapatellar arthrotomy, and I was able to place my finger directly into the knee joint. The area of dehiscence was shorter than that at the time of the previous irrigation and debridement. It was noted that the PDS sutures were intact both in structure and not. Some of them are on the medial aspect of the incision line and some are on the lateral aspect of the incision line. Sutures were removed. Cultures were obtained. Vancomycin was administered. Copious irrigation was accomplished with 9 L of fluid after cultures were obtained. The final 6 L of irrigation contained vancomycin. Vancomycin, IV, was also administered after culture was obtained. Following irrigation and debridement of soft tissues, attention was then directed to closure. Closure was accomplished with #1 PDS interrupted in the fascial tissues. This suture line was supplemented with 0 Strata fix suture. Following placement and completion of the suture line, PRP was placed along the suture line. This was followed by vancomycin powder. Similarly, a double layer closure was obtained in the subcutaneous tissues. Interrupted 2-0 Monocryl was used in the subcutaneous tissues followed by 3-0 PDS, and the skin was closed with skin darrion. Following this, Prineo with Dermabond was placed over the staple incision. A sterile dressing was then placed consisting of Telfa, 4 x 4's, ABDs, sterile soft roll, and an Rogers wrap. She was placed in a large soft dressing. The patient was returned the Recovery Room in a satisfactory condition. The patient will be discharged to home. She will continue with her current IV treatments. 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
[2021-03-02] MEDS: fentaNYL 50 mcg/mL INJ 2mL IVP (11:55)
--- NOTE | 2021-03-02 12:03 | SUR.PHASEI ---
1155 PT ON RA , PT AWAKES TO VERBAL STIMULI, NOW MOANS AND RATES PAIN AT 9 SEE MED GIVEN LT KNEE DRESSING D/I DISTAL FOOT PINK WARM
[2021-03-02] MEDS: oxyCODONE 5 mg IR Tab/Cap PO (12:30)
--- NOTE | 2021-03-02 13:46 | PC.NURSE ---
Pt educated on oxycodone and potential side effects. Instructed to contact Dr. Salas's office if she experiences nausea or constipation. Pt and friend given hand out on oxycodone, procedure performed, and post anesthesia instructions. Educated not to drive or drink alcohol while on oxycodone or for 24 hrs after procedure. Follow-up appointment given to patient. Pt instructed to follow Dr. Salas's orders on discharge packet.
--- NOTE | 2021-03-02 16:00 | ANE.PACU2 ---
Inpatient post-anesthesia follow up: Airway intact: Yes Vital signs: Temperature 97.4 F Pulse Rate 102 Respiratory Rate 23 Blood Pressure 155/70 Pulse Oximetry 100 Oxygen Delivery Me thod Room Air Oxygen Flow Rate Fraction of Inspir ed Oxygen Hydration adequate: Yes Nausea and vomiting: No Pain level: 1 Mental status: Baseline
== END 2021-03-02 13:49 | disposition home or self-care (01) ==
PROVIDERS: PCP Family Medicine; Visit Provider Specialist
PROC: (CPT 13160; principal; 2021-03-02 08:45)
DX: T81.30XA Disruption of wound, unspecified, initial encounter (principal); I10 Essential (primary) hypertension; E11.9 Type 2 diabetes mellitus without complications; M19.90 Unspecified osteoarthritis, unspecified site; Z79.82 Long term (current) use of aspirin
CPT/HCPCS: 13160; 29877; 36415; 80053; 85025; 87070; 87075; 87205; J2405; J2704; J3010; J3370; J3490; J7030; J7050

== ENCOUNTER → 2021-03-10 12:56 | Outpatient (BNVA) | payer MEDICARE, OTHER, SELFPAY | PROVIDERS: PCP Family Medicine; Visit Provider Specialist | DX: Z79.899 Other long term (current) drug therapy (principal); T81.31XA Disruption of external operation (surgical) wound, not elsewhere classified, initial encounter; Z96.652 Presence of left artificial knee joint | CPT/HCPCS: 36415; 73560; 73565; 85651; 86140 ==

== ENCOUNTER 2021-03-17 11:00 | Outpatient (CLI) | payer MEDICARE, OTHER, SELFPAY ==
[2021-03-17 14:48] LABS: C Reactive Protein 21.3 mg/L (0.0-4.9)
[2021-03-17 15:23] LABS: Erythrocyte Sedimentation Rate 31 mm/hr (0-15)
== END 2021-03-17 11:01 | disposition home or self-care (01) ==
PROVIDERS: PCP Family Medicine; Visit Provider Student in an Organized Health Care Education/Training Program
DX: T81.31XD Disruption of external operation (surgical) wound, not elsewhere classified, subsequent encounter (principal); X58.XXXD Exposure to other specified factors, subsequent encounter
CPT/HCPCS: 36415; 85651; 86140

== ENCOUNTER → 2021-03-30 09:44 | Outpatient (BNVA) | payer MEDICARE, OTHER, SELFPAY | PROVIDERS: PCP Family Medicine; Visit Provider Student in an Organized Health Care Education/Training Program | DX: T84.50XA Infection and inflammatory reaction due to unspecified internal joint prosthesis, initial encounter (principal) | CPT/HCPCS: 85651; 86140 ==

== ENCOUNTER → 2021-04-20 11:27 | Outpatient (BNVA) | payer MEDICARE, OTHER, SELFPAY | PROVIDERS: PCP Family Medicine; Visit Provider Student in an Organized Health Care Education/Training Program | DX: T84.50XD Infection and inflammatory reaction due to unspecified internal joint prosthesis, subsequent encounter (principal); Y83.8 Other surgical procedures as the cause of abnormal reaction of the patient, or of later complication, without mention of misadventure at the time of the procedure | CPT/HCPCS: 85651; 86140 ==

== ENCOUNTER → 2021-05-05 10:17 | Outpatient (BNVA) | payer MEDICARE, OTHER, SELFPAY | PROVIDERS: PCP Family Medicine; Visit Provider Specialist | DX: Z96.652 Presence of left artificial knee joint (principal) | CPT/HCPCS: 73560; 73565 ==

== ENCOUNTER 2021-06-10 07:50 | Outpatient (CLI) | payer MEDICARE, OTHER, SELFPAY ==
[2021-06-10 10:04] LABS: Basophils % 0.8 %; Eosinophils # 0.1 10^3/uL (0.0-0.8); Eosinophils % 1.9 %; Hematocrit 33.8 % (37.0-47.0); Hemoglobin 10.6 g/dL (11.5-15.3); Lymphocytes # 1.9 10^3/uL (0.8-4.8); Mean Corpuscular HGB Conc 31.4 g/dL (30.0-36.0); Mean Corpuscular Volume 92.6 fl (81-99); Mean Platelet Volume 10.5 fL (7.4-10.4); Monocytes # 0.4 10^3/uL (0.2-0.9); Monocytes % 8.4 %; Neutrophils # 2.65 10^3/uL (1.8-7.7); Neutrophils % 51.5 %; Nucleated Red Blood Cells % 0 %; Platelet Count 242 10^3/cmm (130-400); Red Blood Count 3.65 10^6/uL (4.1-5.3); Red Cell Distribution Width 14.5 % (12.1-15.1); Reticulocyte % 1.3 % (0.5-2.0); White Blood Count 5.1 10^3/uL (4.0-10.0)
[2021-06-10 10:53] LABS: Alanine Aminotransferase 13 U/L (0-33); Albumin Level 4.2 g/dL (3.5-5.2); Alkaline Phosphatase 48 IU/L (35-105); Anion Gap 12.3 (5-19); Aspartate Amino Transferase 17 U/L (0-32); Blood Urea Nitrogen 25 mg/dL (8-23); Calcium 8.4 mg/dL (8.5-10.5); Carbon Dioxide 24 mmol/L (22-29); Chloride 106 mmol/L (98-107); Ferritin 87 ng/mL (15-150); Globulin 3.1 g/dL (1.3-4.6); Glucose 103 mg/dL (65-115); Iron 64 ug/dL (37-145); Lactate Dehydrogenase 220 U/L (135-214); Osmolality Calculated 291 mOsm/kg (285-295); Percent Saturation 22.2 % (20-50); Potassium 4.3 mmol/L (3.5-5.1); Sodium 138 mmol/L (136-145); Thyroid Stimulating Hormone 1.23 uIU/mL (0.27-4.20); Total Bilirubin 0.3 mg/dL (0.15-1.2); Total Iron Binding Capacity 288 mcg/dl; Total Protein 7.3 g/dL (6.6-8.7); Unsaturated Iron Binding 224 ug/dL (112-347); Vitamin B12 832 pg/mL (232-1245)
[2021-06-10 11:38] LABS: Folate Level > 20.0 ng/mL (4.8-37.3)
[2021-06-10 13:20] LABS: LAB Peripheral Smear Sent for Review
--- NOTE | 2021-06-10 15:12 | ONC CON_ITS ---
Dr. Byrne New Patient Note Patient: Priscila Gallegos Unit #: [id number]: 1940 Dicatated By: Akash Byrne M.D.Date of Visit: Jun 10, 2021 Onc MED New Patient/Consult Referring Physician: Dr. Jas Kc M.D. Chief Complaint: Anemia. History of Present Illness: This is a 80-year-old woman with mild anemia. She has hypertension and type [address] Kc for primary care. She also has osteoarthritis of both knees, and she underwent right total knee arthroplasty in October of this year and left total knee arthroplasty in December. The latter was complicated by wound dehiscence and staph infection and she required 2 additional surgeries, but it eventually resolved. During this time she has been anemic. She indicates that she has been mildly anemic for least a couple of years. Her baseline preoperative CBC on 10/13/2020 showed hemoglobin mildly decreased at 10.6 g with hematocrit 33.9%. The red cell indices were in the upper normal range. The white blood cell count was 5700 and the platelet count was 237,000. Postoperatively her hemoglobin dropped to 8.4 g, but it was back up to 10.5 g in December prior to the left total knee procedure. Then dropped again to as low as 7.6 g, but with subsequent recovery. At her follow-up with Dr. Kc on 05/12/2021 the hemoglobin was still moderately decreased at 9.9 g with hematocrit 31.7%. The red cell indices were normal with MCV 90 and MCH 28. The white blood cell count was 4600 and the platelet count was 250,000. Her additional studies on 05/17/2021 showed hemoglobin 10.0 g with hematocrit 32%. The uncorrected reticulocyte count was low at 1.1%. The serum iron studies showed slightly low transferrin saturation at 19% and the ferritin was in the low normal range at 56 ng/mL. She began on oral iron supplementation with ferrous sulfate. She says her energy has been okay. She does have limited activity, but she is able to do housework and she has been doing some walking. ECOG score is 1. She has good appetite. She has not had fever or night sweats. She has some allergy related sinus symptoms and she sometimes has cough with it. She does not complain of shortness of breath or chest pain. She has not been having nausea. She initially was having acid reflux and diarrhea with the iron supplement, but those symptoms have improved since she started taking it at bedtime. She has not been aware of any blood in the stool. She has some urinary frequency and nocturia, and she also has some bladder incontinence. She has some stiffness in her knees, but not much pain, and she has no other joint or bone pain. She does not complain of headache or dizziness. She has been getting some swelling in the lower legs and feet during the daytime, but it goes away at night. She has no numbness/paresthesia or other focal neurologic symptoms. Past Medical History: Her medical history includes degenerative arthritis, essential tremors, hypertension, hypothyroidism, and type II diabetes. She has a history of bronchospasm and a history of colonic polyps. Past Surgical History: She underwent right total knee arthroplasty on 10/20/2020, left total knee arthroplasty on 12/29/2020, irrigation/debridement of left knee with revision of total knee arthroplasty on 01/29/2021, and irrigation/debridement of left knee with wound closure multiple layers on 03/02/2021. 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 Medications: 50+ Adult Eye Health 1 Tablet Capsule Oral daily, Calcium-Vitamin D 1 Tablet (of 500-125 mg - Units) Oral t.i.d., Celecoxib 1 Capsule (of 200 mg) Oral b.i.d., Daily Multiple Vitamins 1 Tablet Oral daily, Ferrous Sulfate 1 Tablet (of 325 (65 fe) mg) Oral daily, Levothyroxine Sodium 1 Tablet (of 75 mcg) Oral daily, Lisinopril 1 Tablet (of 10 mg) Oral daily, Loratadine 1 Tablet (of 10 mg) Oral daily, lortab 1 - 2 Tablet Oral q 6 hours, metFORMIN HCl 0.5 Tablet (of 500 mg) Oral b.i.d., Nystatin 5 mL (of 701796 Units/mL) Suspension Mouth/throat four times a day, predniSONE 1 Tablet (of 20 mg) Oral daily, Probiotic 1 Tablet Tablet, enteric coated Oral daily, Promethazine HCl 1 Tablet (of 25 mg) Oral q 4 hours for 4 hours PRN, Promethazine-DM 1 - 2 tsp (of 6.25-15 mg/5mL) Solution Oral q 4 hours PRN, raNITIdine HCl 1 Capsule (of 150 mg) Oral b.i.d., Sertraline HCl 1 Tablet (of 50 mg) Oral daily, Vitamin D (Ergocalciferol) , Xopenex HFA 2 Puff(s) (of 45 mcg/act) Aerosol Inhalation q 4 hours PRN Allergies: B-Vitamins, Etodolac, Naprosyn, Penicillins, Sulfa Antibiotics, and Vitamin C. Social History: Ms. Gallegos is . She previously worked for [employer]. She is retired. She is a non-smoker. She does not drink alcohol. Family History: Father of lung cancer and mother of breast cancer, both at age 70. A brother at age 50 with complications of diabetes. One other brother is still in good health. Review Of Symptoms: Constitutional - Her energy has been okay, but she does have limited activity. She is walking and doing housework. She has good appetite. Her weight is up a little. She does not have fever or night sweats. ECOG score is 1, Eyes - No change in vision, ENMT - She has hearing loss. No tinnitus. She has some allergy related sinus symptoms. No mouth sores. No sore throat or difficulty swallowing, Hematologic/Lymphatic - She bruises easily. She has had no other bleeding, Respiratory - No shortness of breath. She has cough, presumably allergy related. No pleuritic pain or hemoptysis, Cardiovascular - No angina pain. No palpitations, Gastrointestinal - No nausea or vomiting. She had acid reflux and diarrhea with the iron pill, but those symptoms have improved since she has been taking it at bedtime. No blood in the stool or black stools, Genitourinary (F) - No dysuria or hematuria. She has urinary frequency and nocturia, and she has some bladder incontinence, Musculoskeletal - She has some stiffness in her knees, but not much pain. She has no other joint or bone pain, Integumentary - No skin rash or other skin changes, Neurologic - No headache or dizziness. No numbness or tingling. No other focal neurologic symptoms, Psychiatric - No anxiety or depression. No insomnia. Vital Signs: Performed on Jun 10, 2021 09:44: 1, 0, 32.77 (HIGH), 2.06 sq.m, 67 in, 98 %, 72 /min, 18 /min, 152/81 mm(hg) (HIGH), 98.1 F (LOW), and 209.2 lbs (HIGH). Physical Examination: Constitutional - She appears to be in good general health, Eyes - Sclerae nonicteric. Conjunctivae clear, ENMT - No lesions noted in the oral cavity, Neck - No mass or thyromegaly, Hematologic/Lymphatic - No cervical, clavicular, or axillary adenopathy, Respiratory - Lungs are clear with good air movement bilaterally, Cardiovascular - Heart rhythm is regular. There is no murmur, gallop, or rub noted, Abdomen - Soft and non-tender. Liver and spleen are not enlarged. There is no abdominal mass or ascites noted and there is no inguinal adenopathy, Back/Spine - No spine or CVA tenderness noted, Extremities - Slight edema. Pedal pulses are palpable bilaterally, Integumentary - No rashes. No suspicious skin lesions noted, Neurologic - She has mild tremor in both hands. There are no focal neurologic deficits noted. Problem List: 1. Mild anemia. She does appear to have at least some component of iron deficiency, but there may be other potential causes/contributing factors. 2. She underwent right total knee arthroplasty in October 2020 and left total knee arthroplasty in December 2020. The latter was complicated by wound dehiscence requiring 2 additional surgeries. 3. Hypertension. 4. Type 2 diabetes. 5. Hypothyroidism. 6. Essential tremor. 7. History of bronchospasm. 8. History of colonic polyps. 9. 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 Problems Addressed with this Encounter and Plan: Patient with mild anemia. Her anemia had worsened somewhat following right total knee arthroplasty in October 2020 and again following a left total knee arthroplasty in December 2020. As of May her hemoglobin was back up to baseline at 10 g and at that point her laboratory studies did show evidence of iron deficiency. She has since then been on an oral iron supplement. It is uncertain to what extent there may be additional contributing factors to the anemia. She will have additional laboratory studies today to include CBC, comprehensive metabolic profile, reticulocyte count, LDH level, haptoglobin level, serum iron studies and ferritin, B12 and folate levels, TSH level, sed rate, serum protein electrophoresis, and serum free light chain assay. I will review the blood smear. She will have further evaluation as indicated. Signed By: Akash Byrne M.D. <<Signature on File>>
[2021-06-11 09:02] LABS: PROTEIN, TOTAL 7.4 g/dL (6.1-8.1)
[2021-06-11 14:37] LABS: KAPPA LIGHT CHAIN, FREE, SERUM 24.8 mg/L (3.3-19.4); KAPPA/LAMBDA LIGHT CHAINS FREE 0.99 (0.26-1.65)
[2021-06-11 15:27] LABS: ALBUMIN 4.2 g/dL (3.8-4.8); ALPHA 1 GLOBULIN 0.3 g/dL (0.2-0.3); ALPHA 2 GLOBULIN 0.8 g/dL (0.5-0.9); BETA 1 GLOBULIN 0.4 g/dL (0.4-0.6); BETA 2 GLOBULIN 0.3 g/dL (0.2-0.5); GAMMA GLOBULIN 1.5 g/dL (0.8-1.7)
[2021-06-11 16:50] LABS: Erythrocyte Sedimentation Rate 11 mm/hr (0-15)
== END 2021-06-10 07:51 | disposition home or self-care (01) ==
PROVIDERS: PCP Family Medicine; Visit Provider Internal Medicine Medical Oncology
DX: D50.9 Iron deficiency anemia, unspecified (principal); Z96.651 Presence of right artificial knee joint; Z96.652 Presence of left artificial knee joint; I10 Essential (primary) hypertension; E11.9 Type 2 diabetes mellitus without complications; E03.9 Hypothyroidism, unspecified; G25.0 Essential tremor; Z87.09 Personal history of other diseases of the respiratory system; Z86.010 Personal history of colon polyps
CPT/HCPCS: 80053; 82607; 82728; 82746; 83010; 83540; 83550; 83615; 83883; 84155; 84165; 84443; 85025; 85045; 85651; 99204

== ENCOUNTER → 2021-08-04 09:18 | Outpatient (BNVA) | payer MEDICARE, OTHER, SELFPAY | PROVIDERS: PCP Family Medicine; Visit Provider Specialist | DX: Z96.652 Presence of left artificial knee joint (principal); Z96.651 Presence of right artificial knee joint | CPT/HCPCS: 73560; 73565 ==

== ENCOUNTER 2021-09-07 15:45 | Outpatient (CLI) | payer MEDICARE, OTHER, SELFPAY ==
--- NOTE | 2021-09-07 15:55 | XR_ITS ---
WS: [id number] LEFT KNEE: 3 VIEW(S) TECHNIQUE: AP, oblique(s) and lateral. HISTORY: KNEE PAIN, LEFT COMPARISON: 08/04/2021 Status post total knee replacement. No fracture or loosening is evident. Patella is in normal position. No joint effusion. No soft tissue abnormality. XR/XR knee LT 3V* [id number] IMPRESSION: Status post LEFT total knee replacement. No complications or loosening.
== END 2021-09-07 15:46 | disposition home or self-care (01) ==
PROVIDERS: PCP Family Medicine; Visit Provider Family Medicine
DX: M25.562 Pain in left knee (principal); Z96.652 Presence of left artificial knee joint
CPT/HCPCS: 73562

== ENCOUNTER 2021-09-21 12:14 | Outpatient (CLI) | payer MEDICARE, OTHER, SELFPAY ==
[2021-09-21 13:07] LABS: Basophils % 0.5 %; Eosinophils # 0.1 10^3/uL (0.0-0.8); Eosinophils % 1.6 %; Hematocrit 34.8 % (37.0-47.0); Hemoglobin 11.1 g/dL (11.5-15.3); Lymphocytes # 2.1 10^3/uL (0.8-4.8); Lymphocytes % 37.6 %; Mean Corpuscular HGB Conc 31.9 g/dL (30.0-36.0); Mean Corpuscular Hemoglobin 30.2 pg (28.0-34.0); Mean Corpuscular Volume 94.6 fl (81-99); Mean Platelet Volume 10.7 fL (7.4-10.4); Monocytes # 0.4 10^3/uL (0.2-0.9); Monocytes % 7.3 %; Neutrophils # 2.88 10^3/uL (1.8-7.7); Neutrophils % 52.3 %; Nucleated Red Blood Cells % 0 %; Platelet Count 242 10^3/cmm (130-400); Red Blood Count 3.68 10^6/uL (4.1-5.3); Red Cell Distribution Width 13.8 % (12.1-15.1); White Blood Count 5.5 10^3/uL (4.0-10.0)
[2021-09-21 13:18] LABS: Alanine Aminotransferase 16 U/L (0-33); Albumin Level 4.3 g/dL (3.5-5.2); Alkaline Phosphatase 48 IU/L (35-105); Anion Gap 14.4 (5-19); Aspartate Amino Transferase 20 U/L (0-32); Blood Urea Nitrogen 32 mg/dL (8-23); Calcium 9.4 mg/dL (8.5-10.5); Carbon Dioxide 26 mmol/L (22-29); Chloride 104 mmol/L (98-107); Globulin 3.2 g/dL (1.3-4.6); Glucose 114 mg/dL (65-115); Iron 66 ug/dL (37-145); Lactate Dehydrogenase 202 U/L (135-214); Osmolality Calculated 298 mOsm/kg (285-295); Percent Saturation 26.5 % (20-50); Potassium 4.4 mmol/L (3.5-5.1); Sodium 140 mmol/L (136-145); Total Bilirubin 0.2 mg/dL (0.15-1.2); Total Iron Binding Capacity 249 mcg/dl; Total Protein 7.5 g/dL (6.6-8.7); Unsaturated Iron Binding 183 ug/dL (112-347)
--- NOTE | 2021-09-24 08:19 | ONC FU_ITS ---
Dr. Byrne Patient Follow-Up Note Patient: Priscila Gallegos Unit #: [id number]: [id number] Dicatated By: Akash Byrne M.D.Date of Visit:Sep 21, 2021 Onc Med Follow-up/Prog Note Chief Complaint: Anemia. History of Present Illness: This is an 81 year-old woman with mild anemia. She has osteoarthritis of both knees. She underwent right total knee arthroplasty in October 2020 and left total knee arthroplasty in December 2020 The latter was complicated by wound dehiscence and staph infection, requiring 2 additional surgeries. It eventually resolved, but during she was found to be anemic. She indicated that she had been mildly anemic for least a couple of years. Her baseline preoperative CBC on 10/13/2020 showed hemoglobin mildly decreased at 10.6 g with hematocrit 33.9%. The red cell indices were in the upper normal range. The white blood cell count was 5700 and the platelet count was 237,000. Postoperatively her hemoglobin dropped to 8.4 g, but it was back up to 10.5 g in December prior to the left total knee procedure. It then dropped again to as low as 7.6 g, but with subsequent recovery. At her follow-up with Dr. Kc on 05/12/2021 the hemoglobin was still moderately decreased at 9.9 g with hematocrit 31.7%. The red cell indices were normal with MCV 90 and MCH 28. The white blood cell count was 4600 and the platelet count was 250,000. Her additional studies on 05/17/2021 showed hemoglobin 10.0 g with hematocrit 32%. The uncorrected reticulocyte count was low at 1.1%. The serum iron studies showed slightly low transferrin saturation at 19% and the ferritin was in the low normal range at 56 ng/mL. She began on oral iron supplementation with ferrous sulfate. I had seen her initially on 06/10/2021. She was just mildly anemic, hemoglobin 10.6 g, with red cell indices in the upper normal range. The white blood cell count was 5100 and the platelet count was 242,000. Her serum iron studies show transferrin saturation at the lower limit of normal at 22% with ferritin in the low normal range at 87 ng/mL. B12 level and folate levels were normal. The sed rate was normal at 11 mm/h, and there was no evidence of monoclonal gammopathy by protein electrophoresis or serum free light chain assay. She was recommended to continue her oral iron supplement. Her other medical illnesses include hypertension, type 2 diabetes, and hypothyroidism. She has essential tremor. She has a history of bronchospasm and a history of colonic polyps. She is a non-smoker. She is seen for a follow-up visit. She says she feels good. Her energy is okay, but she does not have a lot of activity. She is doing housework. ECOG score is 1. She has good appetite. She has no fever or night sweats. She has not had sore mouth or throat. She does not complain of cough, and she has not been having shortness of breath or chest pain. She occasionally has heartburn. Her bowels are pretty regular. She has not been aware of any blood in the stool. She has no complaints. She still has some pain in her knees, but they are getting better. She has no other joint or bone pain. She does not complain of headache or dizziness, and she has no focal neurologic symptoms. Medications: 50+ Adult Eye Health 1 Tablet Capsule Oral daily, Calcium-Vitamin D 1 Tablet (of 500-125 mg - Units) Oral t.i.d., Celecoxib 1 Capsule (of 200 mg) Oral b.i.d., Daily Multiple Vitamins 1 Tablet Oral daily, Ferrous Sulfate 1 Tablet (of 325 (65 fe) mg) Oral daily, Levothyroxine Sodium 1 Tablet (of 75 mcg) Oral daily, Lisinopril 1 Tablet (of 10 mg) Oral daily, Loratadine 1 Tablet (of 10 mg) Oral daily, lortab 1 - 2 Tablet Oral q 6 hours, metFORMIN HCl 0.5 Tablet (of 500 mg) Oral b.i.d., Nystatin 5 mL (of 738653 Units/mL) Suspension Mouth/throat four times a day, predniSONE 1 Tablet (of 20 mg) Oral daily, Probiotic 1 Tablet Tablet, enteric coated Oral daily, Promethazine HCl 1 Tablet (of 25 mg) Oral q 4 hours for 4 hours PRN, Promethazine-DM 1 - 2 tsp (of 6.25-15 mg/5mL) Solution Oral q 4 hours PRN, raNITIdine HCl 1 Capsule (of 150 mg) Oral b.i.d., Sertraline HCl 1 Tablet (of 50 mg) Oral daily, Vitamin D (Ergocalciferol) , Xopenex HFA 2 Puff(s) (of 45 mcg/act) Aerosol Inhalation q 4 hours PRN Allergies: B-Vitamins, Etodolac, Naprosyn, Penicillins, Sulfa Antibiotics, and Vitamin C. Vital Signs: Performed on Sep 21, 2021 15:16 Height - 67.00 in Weight - 211.6 lbs (HIGH) BSA - 2.07 sq.m BMI - 33.14 (HIGH) Temperature - 97.7 F (LOW) Pulse - 70 /min Respiration - 16 /min BP - 165/73 mm(hg) (HIGH) O2 Sat - 98 % Pain - 0 Fatigue - 1 Physical Examination: Constitutional - She looks pretty good generally, Eyes - Sclerae nonicteric. Conjunctivae clear, ENMT - No lesions noted in the oral cavity, Hematologic/Lymphatic - No cervical, clavicular, or axillary adenopathy, Respiratory - Lungs are clear with good air movement bilaterally, Cardiovascular - Heart rhythm is regular. There is no murmur, gallop, or rub noted, Abdomen - Soft. Liver and spleen are not enlarged. There is no abdominal mass or ascites noted and there is no inguinal adenopathy, Extremities - No edema, Neurologic - No focal neurologic deficits noted. Lab/Imaging: Test performed on Sep 21, 2021 12:57 WBC 5.5 10 3/uL RBC 3.68 10 6/uL HGB 11.1 g/dL HCT 34.8 % MCV 94.6 fl MCH 30.2 pg MCHC 31.9 g/dL RDW 13.8 % Platelet Count 242 10 3/cmm MPV 10.7 fL Neutrophils 2.88 10 3/uL Lymphocytes 2.1 10 3/uL Monocytes 0.4 10 3/uL Eosinophils 0.1 10 3/uL Basophils 0.0 10 3/uL Neutrophil % 52.3 % Lymphocyte % 37.6 % Monocyte % 7.3 % Eosinophil % 1.6 % Basophils % 0.5 % NRBC % 0 % Test performed on Sep 21, 2021 12:54 Iron 66 mcg/dL LDH (Total) 202 U/L Sodium 140 mmol/L Iron Binding Capacity (TIBC) 249 mcg/dl Potassium 4.4 mmol/L % Iron Saturation 26.5 % Chloride 104 mmol/L CO2 26 mmol/L UIBC 183 mcg/dL Anion Gap 14.4 BUN 32 mg/dL Creatinine 0.7 mg/dL Cr Clearance (Est) 97.12 mL/min Glucose 114 mg/dL Osmolality - Calculated 298 mOsm/kg Calcium 9.4 mg/dL Protein, Total 7.5 g/dL Albumin 4.3 g/dL Globulin 3.2 g/dL Bilirubin, Total 0.2 mg/dL ALT (SGPT) 16 U/L AST (SGOT) 20 U/L Alkaline Phosphatase 48 IU/L Retic Count % 1.0 % Problem List: 1. Mild anemia. She does appear to have at least some component of iron deficiency, but there may be other potential causes/contributing factors. 2. She underwent right total knee arthroplasty in October 2020 and left total knee arthroplasty in December 2020. The latter was complicated by wound dehiscence requiring 2 additional surgeries. 3. Hypertension. 4. Type 2 diabetes. 5. Hypothyroidism. 6. Essential tremor. 7. History of bronchospasm. 8. History of colonic polyps. 9. 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 Problems Addressed with this Encounter and Plan: Patient with mild anemia. It appears to be chronic, but it had worsened somewhat following right total knee arthroplasty in October 2020 and again following a left total knee arthroplasty in December 2020. As of May 2021 her hemoglobin was back up to baseline at 10 g, and at that point her laboratory studies did show evidence of iron deficiency. She then began on an oral iron supplement. During follow-up she has remained mildly anemic. As her serum iron studies are still in the low normal range, she still may have some component of iron deficiency. She does not appear to be overtly symptomatic, and at least for the time being she will just continue her oral iron supplement every other day. She will have follow-up laboratory studies with Dr. Kc in 2 to 3 months. If she is not significantly improved, she will be given the option to have parenteral iron replacement with Injectafer. Signed By: Akash Byrne M.D. <<Signature on File>>
== END 2021-09-21 12:15 | disposition home or self-care (01) ==
PROVIDERS: PCP Family Medicine; Visit Provider Internal Medicine Medical Oncology
DX: D64.9 Anemia, unspecified (principal); I10 Essential (primary) hypertension; E11.9 Type 2 diabetes mellitus without complications; E03.9 Hypothyroidism, unspecified; G25.0 Essential tremor; Z79.899 Other long term (current) drug therapy
CPT/HCPCS: 36415; 80053; 83540; 83550; 83615; 85025; 85045; 99214

== ENCOUNTER → 2021-11-19 08:03 | Outpatient (BNVA) | payer MEDICARE, OTHER, SELFPAY | PROVIDERS: PCP Family Medicine; Visit Provider Family Medicine | DX: D64.9 Anemia, unspecified (principal); E55.9 Vitamin D deficiency, unspecified; E11.9 Type 2 diabetes mellitus without complications; I10 Essential (primary) hypertension; E03.9 Hypothyroidism, unspecified; M81.0 Age-related osteoporosis without current pathological fracture | CPT/HCPCS: 80053; 82306; 82607; 83036; 84443; 85025 ==

== ENCOUNTER 2021-12-01 09:27 | Outpatient (CLI) | payer MEDICARE, OTHER, SELFPAY ==
--- NOTE | 2021-12-01 09:35 | MM_ITS ---
WS: [id number] BILATERAL SCREENING DIGITAL BREAST TOMOSYNTHESIS MAMMOGRAM WITH CAD HISTORY: SCREENING COMPARISON: 10/12/2020, 08/21/2019 and 08/01/2018 Bilateral CC and MLO views with tomosynthesis and synthetic mammography submitted. Computer aided det ection analyzed. Breast composition: There are scattered areas of fibroglandular density. No suspicious masses, microc alcifications or architectural distortion. Benign calcification anterior RIGHT breast. MM/[place] [id number] IMPRESSION: BI-RADS: 2-Benign FOLLOW UP: 1 Year Follow-up
== END 2021-12-01 09:28 | disposition home or self-care (01) ==
LOC: RAD 09:29
PROVIDERS: PCP Family Medicine; Visit Provider Family Medicine
DX: Z12.31 Encounter for screening mammogram for malignant neoplasm of breast (principal)
CPT/HCPCS: 77063; 77067

== ENCOUNTER → 2022-02-02 07:48 | Outpatient (BNVA) | payer MEDICARE, OTHER, SELFPAY | PROVIDERS: PCP Family Medicine; Visit Provider Specialist | DX: Z96.653 Presence of artificial knee joint, bilateral (principal) | CPT/HCPCS: 73560; 73565; 99213 ==

== ENCOUNTER → 2022-02-11 08:23 | Outpatient (BNVA) | payer MEDICARE, OTHER, SELFPAY | PROVIDERS: PCP Family Medicine; Visit Provider Family Medicine | DX: S80.02XA Contusion of left knee, initial encounter (principal); E11.9 Type 2 diabetes mellitus without complications; I10 Essential (primary) hypertension; E78.5 Hyperlipidemia, unspecified; T81.31XA Disruption of external operation (surgical) wound, not elsewhere classified, initial encounter; T84.50XA Infection and inflammatory reaction due to unspecified internal joint prosthesis, initial encounter; Z96.653 Presence of artificial knee joint, bilateral; Y82.8 Other medical devices associated with adverse incidents; M17.0 Bilateral primary osteoarthritis of knee; X58.XXXA Exposure to other specified factors, initial encounter | CPT/HCPCS: 80053; 80061; 83036; 84443; 85025 ==

== ENCOUNTER → 2022-09-02 08:43 | Outpatient (BNVA) | payer MEDICARE, OTHER, SELFPAY | PROVIDERS: PCP Family Medicine; Visit Provider Family Medicine | DX: I10 Essential (primary) hypertension (principal); E11.9 Type 2 diabetes mellitus without complications | CPT/HCPCS: 80053; 80061; 83036; 84443; 85025 ==

== ENCOUNTER 2022-11-23 06:00 | Outpatient (RCR) | payer MEDICARE, OTHER, SELFPAY | END 2022-12-07 23:59 | disposition home or self-care (01) | LOC: SPT 06:00 | PROVIDERS: Visit Provider Family Medicine | DX: Z47.1 Aftercare following joint replacement surgery (principal); Z96.652 Presence of left artificial knee joint; Z96.651 Presence of right artificial knee joint | CPT/HCPCS: 95992; 97110; 97162 ==

== ENCOUNTER 2022-12-06 08:10 | Outpatient (CLI) | payer MEDICARE, OTHER, SELFPAY ==
--- NOTE | 2022-12-06 08:20 | MM_ITS ---
WS: [id number] VIEWS: MLO and CC views both breasts. 3D digital tomosynthesis is also included in this exam. Comparison made with prior exam of 07/25/2016, 07/28/2017, 08/01/2018, 08/21/2019, 10/12/2020, 12/01/2021.. Findings: There was no sign of mass, architectural distortion or suspicious calcification in either breast. Sc attered fibroglandular densities. MM/[place] [id number] Impression: BI-RADS: 2-Benign FOLLOW-UP: 1 Year Follow-up This mammogram was also analyzed by the Computer Aided Detection System R2 Imag e Title Manager.
== END 2022-12-06 08:11 | disposition home or self-care (01) ==
PROVIDERS: PCP Family Medicine; Visit Provider Family Medicine
DX: Z12.31 Encounter for screening mammogram for malignant neoplasm of breast (principal)
CPT/HCPCS: 77063; 77067

== ENCOUNTER 2022-12-08 06:00 | Outpatient (RCR) | payer MEDICARE, OTHER, SELFPAY | END 2023-01-06 23:59 | disposition home or self-care (01) | LOC: SPT 06:00 | PROVIDERS: PCP Family Medicine; Visit Provider Family Medicine | DX: Z47.1 Aftercare following joint replacement surgery (principal); Z96.651 Presence of right artificial knee joint; Z96.652 Presence of left artificial knee joint | CPT/HCPCS: 97110 ==

== ENCOUNTER → 2023-02-15 08:40 | Outpatient (BNVA) | payer MEDICARE, OTHER, SELFPAY | PROVIDERS: PCP Family Medicine; Visit Provider Specialist | DX: Z96.653 Presence of artificial knee joint, bilateral (principal) | CPT/HCPCS: 73560; 73565; 99213 ==

== ENCOUNTER → 2023-02-22 08:10 | Outpatient (BNVA) | payer MEDICARE, OTHER, SELFPAY | PROVIDERS: PCP Family Medicine; Visit Provider Family Medicine | DX: I10 Essential (primary) hypertension (principal); E11.9 Type 2 diabetes mellitus without complications; E03.9 Hypothyroidism, unspecified | CPT/HCPCS: 80053; 83036; 83735; 84443; 85025; 99203 ==

== ENCOUNTER → 2023-05-23 11:59 | Outpatient (BNVA) | payer MEDICARE, OTHER, SELFPAY | PROVIDERS: PCP Family Medicine; Visit Provider Specialist | DX: G25.0 Essential tremor (principal) | CPT/HCPCS: 99212 ==

== ENCOUNTER → 2023-06-21 08:21 | Outpatient (BNVA) | payer MEDICARE, OTHER, SELFPAY | PROVIDERS: PCP Family Medicine; Visit Provider Family Medicine | DX: E03.9 Hypothyroidism, unspecified (principal); G25.0 Essential tremor; I10 Essential (primary) hypertension; E11.9 Type 2 diabetes mellitus without complications; Z13.6 Encounter for screening for cardiovascular disorders | CPT/HCPCS: 80053; 80061; 82607; 83036; 84443; 85025 ==

== ENCOUNTER → 2023-09-06 08:15 | Outpatient (BNVA) | payer MEDICARE, SELFPAY | PROVIDERS: PCP Family Medicine; Visit Provider Family Medicine | DX: I10 Essential (primary) hypertension (principal); E11.9 Type 2 diabetes mellitus without complications; E03.9 Hypothyroidism, unspecified; R25.1 Tremor, unspecified; Z13.6 Encounter for screening for cardiovascular disorders | CPT/HCPCS: 80053; 80061; 82607; 83036; 84443; 85025 ==

== ENCOUNTER 2023-09-14 11:49 | Inpatient (IN) | payer MEDICARE, OTHER, SELFPAY ==
[2023-09-14] VITALS (14 sets, daily range): BP systolic 107–169; BP diastolic 50–91; PULSE 11–122; RESP 16–28; TEMP 36.9–37.7; O2SAT 92–98; BMI 30.5
--- NOTE | 2023-09-14 11:50 | XR_ITS ---
WS: [id number] Portable AP upright chest, 09/14/2023 Clinical Data: fever Comparison: Portable chest, 02/02/2021 Findings: There is a patchy opacity overlying the left lower lobe which may represent pneumonia and/o r atelectasis. There is a small left pleural effusion. The right lung is clear. The heart is normal. No nodules or masses are seen. The aortic arch shows tortuosity. Impression: 1. Patchy left lower lobe opacity consistent with atelectasis and/or pneumonia. 2. Left pleural effusion. 3. Atherosclerosis.
[2023-09-14 13:20] LABS: Basophils # 0.1 10^3/uL (0.0-0.1); Basophils % 0.6 %; Eosinophils % 0.1 %; Hematocrit 34.3 % (36-47); Lymphocytes # 0.8 10^3/uL (0.8-4.8); Lymphocytes % 3.6 %; Mean Corpuscular HGB Conc 33.8 g/dL (30-55); Mean Corpuscular Hemoglobin 30.9 pg (27-33); Mean Corpuscular Volume 91.2 fl (85-98); Mean Platelet Volume 10.6 fL (7.4-10.4); Monocytes # 1.1 10^3/uL (0.2-0.9); Monocytes % 4.9 %; Neutrophils # 19.01 10^3/uL (1.8-7.7); Neutrophils % 88.4 %; Nucleated Red Blood Cells % 0 %; Platelet Count 250 10^3/cmm (157-399); Red Blood Count 3.76 10^6/uL (3.85-5.65); Red Cell Distribution Width 13.7 % (12.1-15.1)
[2023-09-14 13:38] LABS: Lactic Sepsis W/Reflex 1.7 mmol/L (0.5-2.2)
--- NOTE | 2023-09-14 13:41 | ED_ITS ---
HPI - Weakness 2 General: Chief complaint: Weakness Stated complaint: weakness, fever Time Seen by Provider: 09/14/23 13:18 Source: patient Mode of arrival: ambulatory History of Present Illness: 82-year-old female presents emergency ro om complaining of increased shortness of breath weakness mild confusion she is fallen couple times in the last 2 days. She is mildly confused she has had a somewhat productive cough she had a presumptive diagnosis of influenza A a couple of days ago with her primary care provider seems to be worsening. She states when she fell she landed on her buttocks she complaining of some low back pain. MD Complaint: generalized weakness Relieving factors: none Exacerbating factors: none Associated symptoms: Denies chest pain, chills, confusion, melena, decreased appetite, diaphoresis, dysuria, easy bruising, fever(s), headache(s), myalgias, nausea, rash, short of breath, syncope or vomiting Review of Systems 2 Const: Denies: fever(s), chills or diaphoresis Card: Denies: chest pain or syncope Resp: Reports: dyspnea, non-productive cough and wheezing GI: Denies: abdominal pain, nausea, vomiting or melena : Denies: dysuria, urinary frequency or urinary urgency Musc: Reports: back pain; Denies: neck pain Skin/Breast: Denies: rash Neuro: Denies: headache(s) or confusion Steven/Lymph: Denies: easy bruising PFSH ED 2 PFSH: Medical History Hypothyroidism Diabetes Hypertension Tumor of jaw Surgical History Hx of tonsillectomy Family History Mother Cancer Father Cancer Social History Smoking and tobacco/nicotine status: never used tobacco/nicotine Alcohol intake: never Physical Exam 2 Const: GENERAL APPEARANCE: cooperative and comfortable O RIENTATION/CONSCIOUSNESS: Yes awake HENMT: COMMON NORMALS: normocephalic, atraumatic and hearing grossly normal bilaterally HEAD & SCALP: normocephalic and atraumatic Resp: COMMON NORMALS: normal respiratory effort, No retractions and No use of accessory muscles AUSCULTATION: rhonchi left lower and wheezes Cardio: COMMON NORMALS: regular rhythm and No murmurs present (Cardio) R ATE: tachycardic RHYTHM: regular rhythm GI: COMMON NORMALS: Soft to palpation and No hepatosplenomegaly present A USCULTATION: Yes normoactive bowel sounds PALPATION: Yes Soft to palpation, No Tenderness to palpation present (GI), No Guarding due to palpation present (GI) and Yes No hepatosplenomegaly present Extremity: COMMON NORMALS: normal to inspection, capillary refill normal, no clubbing, cyanosis or edema, no calf tenderness and no pedal edema Skin: COMMON NORMALS: no rashes or lesions noted GENERAL SKIN EXAM: no rashes or lesions noted Course 2 Vital Signs: Vital signs: Vital Signs Temperature 98.5 F 09/14/23 11:57 Pulse Rate 106 H 09/14/23 15:48 Respiratory Rate 16 09/14/23 15:48 Blood Pressure 107/50 09/14/23 15:48 Pulse Oximetry 98 09/14/23 15:48 Oxygen Delivery Me thod Room Air 09/14/23 15:48 MDM - Weakness Medical Decision Making Leukocytosis left lower lobe pneumonia mild acute kidney injury. Fluids started cultures done lactate is normal. Discussed with hospitalist orders written lumbar spine films negative. Medical Records I reviewed the patient's medical records. Lab Data I reviewed the patient's lab results. 09/14/23 12:57 09/14/23 12:57 Laboratory Results WBC 21.50 10^3/uL (3.29-11.43) H 09/14/23 12:57 RBC 3.76 10^6/uL (3.85-5.65) L 09/14/23 12:57 Hgb 11.60 g/dL (11.27-16.99) 09/14/23 12:57 Hct 34.3 % (36-47) L 09/14/23 12:57 MCV 91.2 fl (85-98) 09/14/23 12:57 MCH 30.9 pg (27-33) 09/14/23 12:57 MCHC 33.8 g/dL (30-55) 09/14/23 12:57 RDW 13.7 % (12.1-15.1) 09/14/23 12:57 Plt Count 250 10^3/cmm (157-399) 09/14/23 12:57 MPV 10.6 fL (7.4-10.4) H 09/14/23 12:57 Neut % (Auto) 88.4 % 09/14/23 12:57 Lymph % (Auto) 3.6 % 09/14/23 12:57 [place] % (Auto) 4.9 % 09/14/23 12:57 Eos % (Auto) 0.1 % 09/14/23 12:57 Baso % (Auto) 0.6 % 09/14/23 12:57 Neut # (Auto) 19.01 10^3/uL (1.8-7.7) H 09/14/23 12:57 Lymph # (Auto) 0.8 10^3/uL (0.8-4.8) 09/14/23 12:57 [place] # (Auto) 1.1 10^3/uL (0.2-0.9) H 09/14/23 12:57 Eos # (Auto) 0.0 10^3/uL (0.0-0.8) 09/14/23 12:57 Baso # (Auto) 0.1 10^3/uL (0.0-0.1) 09/14/23 12:57 Nucleated RBC % (auto) 0 % 09/14/23 12:57 Nucleated RBCs # 0.0 /100WBC 09/14/23 12:57 Sodium 132 mmol/L (136-145) L 09/14/23 12:57 Potassium 3.7 mmol/L (3.5-5.1) 09/14/23 12:57 Chloride 96 mmol/L (98-107) L 09/14/23 12:57 Carbon Dioxide 18 mmol/L (22-29) L 09/14/23 12:57 Anion Gap 21.7 (5-19) H 09/14/23 12:57 BUN 54 mg/dL (8-23) H 09/14/23 12:57 Creatinine 1.4 mg/dL (0.5-0.9) H 09/14/23 12:57 GFR Calculation Not Reportable 09/14/23 12:57 Glucose 290 mg/dL (65-115) H 09/14/23 12:57 Calculated Osmolality 295 mOsm/kg (285-295) 09/14/23 12:57 Lactic Acid 1.7 mmol/L (0.5-2.2) 09/14/23 12:57 Calcium 8.1 mg/dL (8.5-10.5) L 09/14/23 12:57 Total Bilirubin 0.5 mg/dL (0.15-1.2) 09/14/23 12:57 AST 20 U/L (0-32) 09/14/23 12:57 ALT 18 U/L (0-33) 09/14/23 12:57 Alkaline Phosphatase 129 U/L (35-105) H 09/14/23 12:57 Troponin T Baseline 28 ng/L (0-10) H 09/14/23 12:57 NT-Pro-B Natriuret Pep 6170 pg/mL (0-450) H 09/14/23 12:57 Total Protein 7.0 g/dL (6.6-8.7) 09/14/23 12:57 Albumin 3.0 g/dL (3.5-5.2) L 09/14/23 12:57 Globulin 4.0 g/dL (1.3-4.6) 09/14/23 12:57 Procalcitonin 2.61 ng/mL (0-0.5) H 09/14/23 12:57 Influenza Type A Ag negative (Negative) 09/14/23 13:34 Influenza Type B Ag negative (Negative) 09/14/23 13:34 SARS-CoV-2 Ag (Rapid) negative (Negative) 09/14/23 13:34 All radiology interpretation(s) finalized by discharge Discharge Plan Discharge Patient Disposition: Admitted As Inpatient Clinical Impression: Pneumonia, BECKY (acute kidney injury) Condition: Stable Coding Level of Care Code ED Traveling Sales Executive for Isac Chong
[2023-09-14 13:46] LABS: Slide Review Slide Review Perform
[2023-09-14 13:56] LABS: Influenza A by IFA negative (Negative); Influenza B by IFA negative (Negative)
[2023-09-14 13:59] LABS: Alanine Aminotransferase 18 U/L (0-33); Alkaline Phosphatase 129 U/L (35-105); Aspartate Amino Transferase 20 U/L (0-32); Carbon Dioxide 18 mmol/L (22-29); Chloride 96 mmol/L (98-107); Creatinine Clr Calc Pharmacy 35.9908; Glucose 290 mg/dL (65-115); Sodium 132 mmol/L (136-145); Total Bilirubin 0.5 mg/dL (0.15-1.2)
[2023-09-14 14:04] LABS: SARS Covid-2 Antigen negative (Negative)
[2023-09-14 14:12] LABS: Anion Gap 21.7 (5-19); Potassium 3.7 mmol/L (3.5-5.1)
[2023-09-14 14:19] LABS: Blood Urea Nitrogen 54 mg/dL (8-23); Calcium 8.1 mg/dL (8.5-10.5); Osmolality Calculated 295 mOsm/kg (285-295)
--- NOTE | 2023-09-14 14:55 | XR_ITS ---
WS: [id number] Lumbar spine, 3 views, 09/14/2023 Clinical Data: fall Comparison: None. Findings: No compression fractures is seen. There is 0.3 cm anterior subluxation of L4 on L5. There is degener ative disc narrowing at all lumbar levels from L2-L3 through L5-S1. There is minimal anterior osteoph yte formation from L2-L5. There is a slight levoscoliosis. The transverse processes and SI joints are normal. Impression: 1. 0.3 cm anterior subluxation of L4 and L5. 2. Degenerative disc narrowing at all lumbar levels from L2-L3 through L5-S1. 3. Minimal anterior osteophyte formation L2-L5.
[2023-09-14] MEDS: sodium chloride 0.9% 1,000 ML 999 ML IV (15:00)
--- NOTE | 2023-09-14 15:11 | XR_ITS ---
WS: [id number] Thoracic spine, AP and lateral views, 09/14/2023 Clinical Data: flank pain right Comparison: None. Findings: No compression fractures are seen. The disc heights are normal. There is anterior osteoarthritic spurring of only thoracic vertebral bodies. The paravertebral region s are normal. 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
--- NOTE | 2023-09-14 15:11 | P.HP_ITS ---
Providers/Chief Complaint 2 Primary Care Provider: Jas Kc DO Chief Complaint: weakness, fever History of Present Illness Priscila Gallegos is a 82 year old female with a past medical history of type 2 diabetes mellitus, hypothyroidism, essential tremor, GERD, who presents [facility] due to fatigue, malaise, shortness of breath, nonproductive cough. Patient tells me that about a week ago, she was getting out of the shower and she accidentally fell, since then she has had right-sided flank pain, at the level of T12-L1, on the right side, no head trauma no loss of consciousness, no chest pain, no palpitations. She tells me that she is also been exposed to family members that were flu be positive. She tells me for the last week she has had fatigue, malaise, nonproductive cough, wheezing, no fevers, no chills, no nausea, no vomiting, no chest pain, no palpitations Review of Systems 2 Card: Denies: chest pain Resp: Reports: dyspnea and non-productive cough GI: Denies: abdominal pain Medications/Allergies Home Medications Medication Instructions Recorded Confirmed Last Taken Type pebyhqjm-aeck-zjis 8 mg-folic 400 1 tab PO QAM 10/13/20 09/14/23 09/14/23 History mcg-K 50 mcg-lutein 300 mcg tablet (Multivitamin Women 50 Plus) blood sugar diagnostic (OneTouch 01/07/22 09/14/23 Unknown History Ultra Test strips) acetaminophen 500 mg tablet 1,000 mg PO Q8H PRN Pain 09/14/23 09/14/23 Unknown History celecoxib 200 mg capsule 200 mg PO BID 09/14/23 09/14/23 09/14/23 History cholecalciferol (vitamin D3) 25 1,000 unit PO QAM 09/14/23 09/14/23 09/14/23 History mcg (1,000 unit) tablet levothyroxine 75 mcg capsule 75 mcg PO QAM 09/14/23 09/14/23 09/14/23 History pantoprazole 40 mg tablet,delayed 40 mg PO DAILY 09/14/23 09/14/23 09/14/23 History release primidone 50 mg tablet 50 mg PO DAILY PRN tremor 09/14/23 09/14/23 Unknown History Allergies Allergy/AdvReac Type Severity Reaction Status Date / Time Penicillins Allergy Intermediate rash Verified 09/11/23 10:40 Sulfa (Sulfonamide Allergy Intermediate rash Verified 09/11/23 10:40 Antibiotics) etodolac Allergy rash Verified 09/11/23 10:40 naproxen [From Aleve] Allergy rash Verified 09/11/23 10:40 b vitamins Allergy Severe Unknown Uncoded 09/11/23 10:40 vitamin c Allergy Severe unknown Uncoded 09/11/23 10:40 PFSH Acute 2 PFSH: Medical History Hypothyroidism Diabetes Hypertension Tumor of jaw Surgical History Hx of tonsillectomy Family History Mother Cancer Father Cancer Social History Smoking and tobacco/nicotine status: never used tobacco/nicotine Alcohol intake: never Vitals/I&O/Wt Last Vital Signs Temp 98.5 F 09/14/23 11:57 Pulse 75 09/14/23 14:55 Resp 18 09/14/23 14:55 BP 141/91 09/14/23 14:55 Pulse Ox 95 09/14/23 14:55 O2 Del Method Room Air 09/14/23 14:55 Weight last 48 hrs Weight 88.451 kg Physical Exam 2 Const: COMMON NORMALS: no acute distress and patient oriented x3 HENMT: COMMON NORMALS: normocephalic HEAD & SCALP: normocephalic Eye: COMMON NORMALS: Equal, round and reactive pupils present and EOMs intact bilaterally Neck/C-Spine: COMMON NORMALS: no JVD Lymph: LYMPHATIC: no lymphadenopathy noted Resp: COMMON NORMALS: normal respiratory effort, No retractions, No use of accessory muscles and clear to auscultation bilaterally AUSCULTATION: wheezes Cardio: COMMON NORMALS: no JVD, regular rate, regular rhythm, S1 normal heart sound present and S2 normal heart sound present RATE: regular rate RHYTHM: regular rhythm HEART SOUNDS: S1 normal heart sound present and S2 normal heart sound present GI: COMMON NORMALS: Normal to inspection, nondistended, normoactive bowel sounds present, Soft to palpation and non-tender Extremity: COMMON NORMALS: no calf tenderness and no pedal edema Neuro: COMMON NORMALS: patient oriented x3, CN's II-XII intact bilaterally, moves all extremities and no focal motor deficits Psych: COMMON NORMALS: mental status grossly normal Data 09/14/23 12:57 09/14/23 12:57 Micro: Microbiology 09/14/23 14:54 Blood Culture - Preliminary Blood SPECIMEN COLLECTED 09/14/23 14:45 Blood Culture - Preliminary Blood SPECIMEN COLLECTED A&P Assessment and plan (1) Pneumonia: (2) Diabetes: (3) Hypothyroidism: (4) BECYK (acute kidney injury): Plan Pneumonia -Sputum cultures, blood cultures, respiratory viral panel -Start Rocephin -Start azithromycin -DuoNeb -Monitor respiratory status closely Type 2 diabetes mellitus, low-dose sliding scale, A1c Hypothyroidism, TSH, continue levothyroxine BECKY, IV fluids, Full code, ? Lovenox for DVT prophylaxis Attestations 2 Medical Necessity Statement*: Patient requires hospitalization, inpatient, greater than 2 midnights, for pneumonia, becky Diagnoses Pneumonia J18.9 Diabetes E11.9 Hypothyroidism E03.9 BECKY (acute kidney injury) N17.9
--- NOTE | 2023-09-14 15:16 | ECG_ITS ---
[facility] Test Date: 2023-09-14 Pat Name: Priscila Gallegos Department: Room: Gender: Female Hot Saw Operator: : 1940 Requested By: Osmel Tay Order Number: [id number] Santo MD: Heath Brock M.D. Measurements Intervals [place] Rate: 97 P: 0 LA: 0 QRS: 29 QRSD: 111 T: 30 QT: 325 QTc: 414 Interpretive Statements ATRIAL FIBRILLATION LOW QRS VOLTAGE IN PRECORDIAL LEADS [QRS DEFLECTION < 1.0 mV IN CHEST LEADS] INCOMPLETE RIGHT BUNDLE BRANCH BLOCK [90+ ms QRS DURATION, TERMINAL R IN V1/V2, 40+ ms S IN I/aVL/V4/V5/V6] NONSPECIFIC ST & T-WAVE ABNORMALITY ABNORMAL RHYTHM ECG Compared to ECG 10/13/2020 09:40:55 Incomplete right bundle-branch block now present T-wave abnormality now present Sinus bradycardia no longer present Electronically Signed On 09-15-2023 17:30:07 WARDROBE SUPERVISOR by Heath Brock M.D. [id number]
[2023-09-14 15:40] LABS: Troponin(5th) Baseline 28 ng/L (0-10)
[2023-09-14 15:50] LABS: NT Pro B Type Natriuretic Pept 6170 pg/mL (0-450); Procalcitonin 2.61 ng/mL (0-0.5)
[2023-09-14 16:12] LABS: C Reactive Protein 519.7 mg/L (0.0-4.9)
[2023-09-14 17:28] LABS: Glucose Point of Care 222 mg/dL (70-110)
[2023-09-14] MEDS: sodium chloride 0.9% 1,000 ML 50 ML IV (17:46)
[2023-09-14] MEDS: cefTRIAXone 1,000 MG in sodium chloride 0.9% (plus) 50 ML 100 MG IV (17:47)
[2023-09-14] MEDS: azithromycin 500 MG in sodium chloride 0.9% 250 ML 250 MG IV (17:48)
[2023-09-14] MEDS: pantoprazole 40 mg SDV IVP (17:48)
[2023-09-14] MEDS: enoxaparin 40 mg/0.4 mL Syringe SUBCUT (17:49)
[2023-09-14] MEDS: acetaminophen 325 mg Tablet 650 MG PO (17:49)
[2023-09-14] MEDS: insulin lispro 100 unit/1 mL SUBCUT (17:50)
[2023-09-14 18:14] LABS: Thyroid Stimulating Hormone 1.94 uIU/mL (0.27-4.20)
[2023-09-14 18:37] LABS: Troponin 5 2HR 25.76 ng/L (0-10)
[2023-09-14 18:43] LABS: Troponin 5 2HR Delta -2.24 ABS# (0-10)
[2023-09-14] MEDS: ipratropium-albuterol 3 mL Neb INHALATION ×2 (20:28→23:17)
[2023-09-14 20:40] LABS: Estmated Average Glucose 134; Hemoglobin A1C 6.3 % (4.0-6.0)
[2023-09-14 20:55] LABS: Adenovirus Not Detected (NOT DETECT); Chlamydia Pneumoniae Not Detected (NOT DETECT); Coronavirus 229E,HKU1,NL63,OC4 Not Detected (NOT DETECT); Human Metapneumovirus Not Detected (NOT DETECT); Human Rhinovirus/Enterovirus Not Detected (NOT DETECT); Influenza A Not Detected (NOT DETECT); Influenza A H1 Not Detected (NOT DETECT); Influenza A H1-2009 Not Detected (NOT DETECT); Influenza A H3 Not Detected (NOT DETECT); Influenza B Not Detected (NOT DETECT); Mycoplasma Pneumoniae Not Detected (NOT DETECT); Parainfluenza Virus Type 1 Not Detected (NOT DETECT); Parainfluenza Virus Type 2 Not Detected (NOT DETECT); Parainfluenza Virus Type 3 Not Detected (NOT DETECT); Parainfluenza Virus Type 4 Not Detected (NOT DETECT); Respiratory Syncytial Virus A Not Detected (NOT DETECT); Respiratory Syncytial Virus B Not Detected (NOT DETECT); SARS-COV-2 Not Detected (NOT DETECT)
--- NOTE | 2023-09-14 21:00 | XRR_ITS ---
PROCEDURE INFORMATION: Exam: XR Chest Exam date and time: 09/14/2023 9:51 PM Age: 82 years old Clinical indication: Other: O2 stats; Additional info: Crackles, new o2 requirement TECHNIQUE: Imaging protocol: Radiologic exam of the chest. Views: 1 view. COMPARISON: CR XR chest 1V portable [id number] 09/14/2023 12:48 PM FINDINGS: Lungs: Increased consolidation in the left lung base. Stable left perihilar ground-glass opacity. The right lung is clear. Pleural spaces: The left pleural effusion has increased in size, now moderate. No pneumothorax. Heart/Mediastinum: Unremarkable. No cardiomegaly. Bones/joints: Unremarkable. XR/XR chest 1V portable [id number] IMPRESSION: 1. Increased left pleural effusion. 2. Pulmonary edema versus pneumonia in the left lung.
--- NOTE | 2023-09-14 21:33 | PC.NURSE ---
Dr. Cee notified of patient having increased crackles in lungs and was at 86% on RA, patient has been turned up to 2L and is saturating at 93%. New orders received for a chest xray.
[2023-09-14 22:17] LABS: Glucose Point of Care 233 mg/dL (70-110)
--- NOTE | 2023-09-14 23:08 | PC.NURSE ---
Dr. Babcock notified of patient's crackles and new o2 requirements, patient is also tachycardic at 115. Dr. Babcock reviewed patient's chart and chest xray and put in orders to stop iv fluids and give 20mg iv lasix.
[2023-09-14] MEDS: FUROsemide 10 mg/mL SDV 2mL 20 MG IVP (23:22)
--- NOTE | 2023-09-14 23:26 | ECG_ITS ---
[facility] Test Date: 2023-09-14 Pat Name: Priscila Gallegos Department: Room: 275 Gender: Female Company Doctor: : 1940 Requested By: Osmel Tay Order Number: [id number] Santo MD: Heath Brock M.D. Measurements Intervals [place] Rate: 105 P: 0 OR: 0 QRS: 17 QRSD: 97 T: -36 QT: 313 QTc: 415 Interpretive Statements ATRIAL FIBRILLATION WITH RAPID VENTRICULAR RESPONSE INCOMPLETE RIGHT BUNDLE BRANCH BLOCK [90+ ms QRS DURATION, TERMINAL R IN V1/V2, 40+ ms S IN I/aVL/V4/V5/V6] NONSPECIFIC ST & T-WAVE ABNORMALITY ABNORMAL RHYTHM ECG Compared to ECG 09/14/2023 15:16:13 No significant changes Electronically Signed On 09-15-2023 17:57:56 ELECTRONIC ASSEMBLER by Heath Brock M.D. [id number]
[2023-09-15] VITALS (21 sets, daily range): BP systolic 98–133; BP diastolic 64–87; PULSE 91–117; RESP 16–36; TEMP 36.6–37.6; O2SAT 91–96
[2023-09-15 00:30] LABS: ABG PCO2 29.2 mmHg (35-45); ABG PH Result 7.43 (7.35-7.45); Arterial Blood Gas Hematocrit 35.3 % (37-47); Base Excess ABG -4.3 mmol/L (-2.0-2.0); Blood Gas Sample Site Brachial, right; Blood Gas Sample Type Arterial; HCO3 ABG 19.1 mmol/L (22-26); Oxygen Device NC; PO2 ABG 62.8 mmHg (80.0-100.0)
[2023-09-15] MEDS: ipratropium-albuterol 3 mL Neb INHALATION ×5 (03:25→23:32)
[2023-09-15 04:51] LABS: Basophils # 0.1 10^3/uL (0.0-0.1); Basophils % 0.6 %; Hematocrit 32.4 % (36-47); Lymphocytes # 0.7 10^3/uL (0.8-4.8); Lymphocytes % 3.2 %; Mean Corpuscular HGB Conc 33.3 g/dL (30-55); Mean Corpuscular Hemoglobin 30.3 pg (27-33); Mean Corpuscular Volume 90.8 fl (85-98); Mean Platelet Volume 10.3 fL (7.4-10.4); Monocytes # 0.4 10^3/uL (0.2-0.9); Neutrophils # 20.04 10^3/uL (1.8-7.7); Neutrophils % 93.5 %; Nucleated Red Blood Cells % 0 %; Platelet Count 246 10^3/cmm (157-399); Red Blood Count 3.57 10^6/uL (3.85-5.65); Red Cell Distribution Width 13.7 % (12.1-15.1); White Blood Count 21.43 10^3/uL (3.29-11.43)
[2023-09-15 05:19] LABS: Alanine Aminotransferase 13 U/L (0-33); Albumin Level 2.6 g/dL (3.5-5.2); Alkaline Phosphatase 83 U/L (35-105); Anion Gap 19.5 (5-19); Aspartate Amino Transferase 14 U/L (0-32); Blood Urea Nitrogen 52 mg/dL (8-23); Calcium 7.5 mg/dL (8.5-10.5); Carbon Dioxide 19 mmol/L (22-29); Chloride 99 mmol/L (98-107); Creatinine Clr Calc Pharmacy 35.9908; Globulin 3.3 g/dL (1.3-4.6); Glucose 247 mg/dL (65-115); Osmolality Calculated 300 mOsm/kg (285-295); Potassium 3.5 mmol/L (3.5-5.1); Sodium 134 mmol/L (136-145); Total Bilirubin 0.6 mg/dL (0.15-1.2); Total Protein 5.9 g/dL (6.6-8.7)
[2023-09-15 05:24] LABS: Slide Review Slide Review Perform
[2023-09-15] MEDS: levothyroxine 75 mcg Tablet PO (05:31)
[2023-09-15 06:40] LABS: Glucose Point of Care 284 mg/dL (70-110)
[2023-09-15] MEDS: insulin lispro 100 unit/1 mL SUBCUT ×3 (07:44→17:27)
--- NOTE | 2023-09-15 08:12 | USCV_ITS ---
Priscila Gallegos Age: 82 Gender: F : 1940 Exam Date: 09/15/2023 10:12 Ordering Phys: Osmel Tay MD Technologist: PEARL [place] [facility] [place]: [place] BP: 128 / 84 HR: 100 Rhythm: Atrial fibrillation Technical Quality: Adequate MEASUREMENTS (Male / Female) Normal Values 2D ECHO LV Diastolic Diameter PLAX 4.1 cm 4.2 - 5.9 / 3.9 - 5.3 cm IVS Diastolic Thickness 1.0 cm 0.6 - 1.0 / 0.6 - 0.9 cm IVS Systolic Thickness 1.6 cm LVPW Diastolic Thickness 1.4 cm 0.6 - 1.0 / 0.6 - 0.9 cm LVPW Systolic Thickness 2.2 cm LVOT Diameter 2.0 cm LV Ejection Fraction 2D Teich 53.8 % LV Ejection Fraction MOD 2C 59.3 % LV Ejection Fraction 2C AL 59.7 % LA Diameter 3.5 cm RA Systolic Volume 4C AL 21.3 ml RA Systolic Volume 4C MOD 20.3 ml Aorta at Sinotubular Diameter 2.5 cm IVC Diameter 1.5 cm M-MODE LA Ao Ratio MM 1.7 AV Cusp Separation MM 1.7 cm DOPPLER AV Peak Velocity 191.0 cm/s LVOT Peak Velocity 135.0 cm/s AV Area Cont Eq vti 2.8 cm squared AV Area Cont Eq pk 2.2 cm squared MV Peak Velocity 111.0 cm/s MV Area PHT 3.3 cm squared Mitral E to A Ratio 109.0 TR Peak Velocity 286.0 cm/s TR Peak Gradient 32.7 mmHg TR Mean Velocity 246.0 cm/s TR Mean Gradient 25.3 mmHg TR Velocity Time Integral 64.8 cm TV Peak E Velocity 52.0 cm/s Right Atrial Pressure 3.0 mmHg Pulmonary Artery Systolic Pressu 35.7 mmHg PV Peak Velocity 125.0 cm/s RV Ejection Time 0.3 s FINDINGS Left Ventricle Normal left ventricular size, systolic function and wall thickness, with no regional wall motion abnormalities. Rhythm precludes evaluation of diastolic function. Left ventricular ejection fraction is estimated at 65 %. Right Ventricle Normal right ventricular size and systolic function. Normal right ventricular systolic pressure. Right Atrium The right atrium is normal in size. 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 Left Atrium The left atrium is normal in size. Mitral Valve Structurally normal mitral valve without significant stenosis or prolapse. There is no mitral regurgitation. Aortic Valve Structurally normal aortic valve without significant sclerosis or stenosis. There is no aortic regurgitation. Tricuspid Valve Structurally normal tricuspid valve. Trace tricuspid valve regurgitation. Pulmonic Valve Pulmonic valve not well visualized. Pericardium Normal pericardium without effusion. Aorta Normal ascending aorta dimension. IVC The inferior vena cava appears normal. CONCLUSIONS Normal left ventricular size, systolic function and wall thickness, with no regional wall motion abnormalities. Rhythm precludes evaluation of diastolic function. Left ventricular ejection fraction is estimated at 65 %. The right atrium is normal in size. 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 There are no prior echocardiogram studies to compare. Dr. Pascual Regan MD (Electronically Signed) Final Date: 15 September 2023 14:41 S
--- NOTE | 2023-09-15 08:12 | USCV_ITS ---
Priscila Gallegos Age: 82 Gender: F : 1940 Exam Date: 09/15/2023 09:53 Ordering Phys: Osmel Tay MD Technologist: PEARL [place] [facility] [place]: [place] HISTORY: Lower extremity edema. PROCEDURES: Venous duplex imaging was performed in bilateral lower extremities. The following venous structures were evaluated: common femoral vein, profunda vein, proximal portion of the greater saphenous vein, superficial femoral vein, and the popliteal vein. In addition, the posterior tibial and peroneal trunk were evaluated. Serial compression, augmentation maneuvers, and spectral Doppler flow evaluation were performed. FINDINGS: No evidence of DVT seen in any vessel visualized at this time. CONCLUSIONS No evidence of right lower extremity DVT. No evidence of left lower extremity DVT. Tulio Samuel MD (Electronically Signed) Final Date: 15 September 2023 10:59 S
--- NOTE | 2023-09-15 09:02 | PC.CHAP ---
Pastoral Care Encounter/Spiritual Assessment Type of Contact [] Declined commercial credit specialist visit [] Patient/Family/Request visit [] Outpatient visit [] Follow-up visit [] Physician referral [] Code/Alert [x] Routine visit [] Staff referral [] Actively dying [] Patient sleeping [] Family support [] [] Out of room [] Palliative care [] [] Receiving care in room [] Pre-surgical visit [] Trauma [] Long length of stay [] ICU visit [] Other: Relational/Emotional Strength [x] Patient feels connected with others/family/visitors/staff [] Distress [] Loneliness/isolation [] Abandonment Spirituality of Patient [x] Person of Juliana [] Attends Mandaeism of their Juliana [x] Believes in Prayer [] Reads Bible or Rastafari materials [] There are Spiritual issues to be addressed Operations Clerk Interventions [x] Prayer [] Active listening [] Non-anxious presence [] Spiritual/emotional support [] Crisis/trauma care [] Spiritual counseling [] Bereavement support [] Provided bereavement packet [] Provided Bible/devotional materials [] Provided toy/stuffed animal, coloring book to patient or family member [] Provided Communion [] Anointing/[place] [] Salvation [x] Completed spiritual assessment [] Other: Impact on Illness or Injury [] Angry [] Fearful [] Anxious [] Often cries [] Exhaustion [] Unable to work [] Unable to attend restoration [] Unable to walk/stand [] Unable to read [] Unable to drive [] Unable to eat/drink [] Unable to sleep [] Unable to be with family [] Patient intubated [] Other: Summary Time spent with patient 5 min
--- NOTE | 2023-09-15 09:20 | ECG_ITS ---
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 Measurements Intervals [place] Rate: 101 P: 0 TX: 0 QRS: -41 QRSD: 114 T: 9 QT: 342 QTc: 443 Interpretive Statements ATRIAL FIBRILLATION WITH RAPID VENTRICULAR RESPONSE INDETERMINATE AXIS MODERATE INTRAVENTRICULAR CONDUCTION DELAY [110+ ms QRS DURATION] ST DEVIATION AND MODERATE T-WAVE ABNORMALITY, CONSIDER ANTERIOR ISCHEMIA [-0.1+ mV T-WAVE IN V3/V4] Compared to ECG 09/14/2023 23:26:54 Indeterminate axis now present Intraventricular conduction delay now present Possible ischemia now present Incomplete right bundle-branch block no longer present T-wave abnormality still present Electronically Signed On 09-15-2023 17:41:01 MANAGER DESKTOP by Heath Brock M.D. [id number]
--- NOTE | 2023-09-15 09:21 | CT_ITS ---
WS: [id number] CTA OF THE CHEST WITH PULMONARY EMBOLISM PROTOCOL TECHNIQUE: High-resolution contrast enhanced CTA of the chest with coronal and sagittal reformatted i mages with pulmonary embolism protocol. MIP images are also reviewed. CLINICAL INFORMATION: sob, elevated troponin, resp failuire COMPARISON: None. DLP: 537.[address] scans at [facility] use at least one of these dose optimization techniques: automated e xposure control; mA and/or kV adjustment per patient size (includes targeted exams where dose is matc hed to clinical indication); or iterative reconstruction. FINDINGS: Proximal main pulmonary arteries are normal. Filling defects in the LEFT upper pulmonary arteries com patible with pulmonary embolus. Additional filling defects in the RIGHT upper and RIGHT lower lobe pu lmonary arteries compatible with pulmonary embolus. Suggestion of mild RIGHT heart strain Normal caliber thoracic aorta. Normal descending thoracic aorta. Complete or near complete consolidat ion LEFT lower lobe with air bronchograms. Subsegmental atelectasis RIGHT lower lobe. Small amount of entrapped fluid LEFT upper lobe along the fissure. Few prominent parabronchial lymph nodes likely reactive. No axillary lymphadenopathy. Mild thoracic k yphosis. IMPRESSION: 1. Acute pulmonary emboli in segmental and subsegmental pulmonary arteries described above. 2. Suggestion of mild RIGHT heart strain 3. Complete dense consolidation of the LEFT lower lobe with air bronchograms. 4. Slight subsegmental atelectasis RIGHT lower lobe. 5. Small amount of entrapped fluid in the LEFT upper lobe along the fissure. Notified Osmel Tay MD at 09/15/2023 12:28 PM.
[2023-09-15] MEDS: FUROsemide 10 mg/mL SDV 4mL 40 MG IVP (09:45)
[2023-09-15] MEDS: albumin 25 G/100 ML BAG 60 G IV (09:46)
[2023-09-15 10:03] LABS: Bacillus cereus group Not Detected (NOT DETECT); Bacillus subtillis group Not Detected (NOT DETECT); Corynebacterium Not Detected (NOT DETECT); Cutibacterium acnes (P.acnes) Not Detected (NOT DETECT); Enterococcus Not Detected (NOT DETECT); Enterococcus faecalis Not Detected (NOT DETECT); Enterococcus faecium Not Detected (NOT DETECT); Lactobacillus species Not Detected (NOT DETECT); Listeria Not Detected (NOT DETECT); Listeria monocytogenes Not Detected (NOT DETECT); Micrococcus Not Detected (NOT DETECT); Pan Candida Not Detected (NOT DETECT); Pan Gram-Negative Not Detected (NOT DETECT); Staphylococcus epidermidis Not Detected (NOT DETECT); Staphylococcus lugdunensis Not Detected (NOT DETECT); Staphylococcus species Not Detected (NOT DETECT); Streptococcus agalactiae Not Detected (NOT DETECT); Streptococcus anginosus group Not Detected (NOT DETECT); Streptococcus pneumoniae Detected (NOT DETECT); Streptococcus pyogenes Not Detected (NOT DETECT); Streptococcus species Detected (NOT DETECT)
[2023-09-15] MEDS: metoprolol tartrate 25 mg Tablet 12.5 MG PO (10:37)
[2023-09-15 11:01] LABS: Glucose Point of Care 295 mg/dL (70-110)
--- NOTE | 2023-09-15 11:24 | ECG_ITS ---
[facility] Test Date: 2023-09-15 Pat Name: Priscila Gallegos Department: Room: 275 Gender: Female Administrative Assistant Data Entry: : 1940 Requested By: Osmel Tay Order Number: [id number] Santo MD: Heath Brock M.D. Measurements Intervals Wallace Rate: 99 P: 0 IA: 0 QRS: 23 QRSD: 118 T: 6 QT: 321 QTc: 413 Interpretive Statements ATRIAL FIBRILLATION LOW QRS VOLTAGE IN PRECORDIAL LEADS [QRS DEFLECTION < 1.0 mV IN CHEST LEADS] INCOMPLETE RIGHT BUNDLE BRANCH BLOCK [90+ ms QRS DURATION, TERMINAL R IN V1/V2, 40+ ms S IN I/aVL/V4/V5/V6] MODERATE ST DEPRESSION [0.05+ mV ST DEPRESSION] Compared to ECG 09/15/2023 09:32:24 Low QRS voltage now present Incomplete right bundle-branch block now present ST (T wave) deviation now present Indeterminate axis no longer present.Intraventricular conduction delay no longer present.T-wave abnormality no longer present Possible ischemia no longer present Electronically Signed On 09-15-2023 18:03:17 SENIOR PROJECT ARCHITECT by Heath Brock M.D. [id number]
--- NOTE | 2023-09-15 11:40 | P.PN_ITS ---
Subjective 2 Subjective: - Patient was seen this morning -Overnight events, patient had episodes of shortness of breath, requiring BiPAP during the night, was given 20 mg of Lasix for fluid overload -This morning she was seen, up to the si de of bed with physical therapy alert oriented x 3, with mild respiratory distress tachypnea, tachycardia, heart rates in the 120s, diffuse wheezing, no intercostal retractions but did have nasal flaring -EKG and telemetry shows A-fib with RVR, started on low-dose metoprolol 12.5 twice daily started on heparin drip -Does report chest pain and chest palpit ations and shortness of breath, with lower extremity edema will order venous ultrasound and will order CT angiogram of the chest -Discussed with patient, she is in respi ratory failure with A-fib with RVR, with lower extremity edema I think she is developing fluid overload, with strep pneumonia bacteremia, with strep pneumonia, elevated inflammatory markers we will have to monitor her as inpatient closely, ordering a cardiac echo and CT angiogram she is agreeable ? She continues to have generalized weakness, needs assistance with activities of daily living getting up to side of bed. To monitor as inpatient PT OT Vitals/I&O/Wt Last Vital Signs Temp 99.7 F H 09/15/23 07:32 Pulse 101 H 09/15/23 11:31 Resp 16 09/15/23 11:27 BP 128/84 09/15/23 07:32 Pulse Ox 96 09/15/23 11:27 O2 Del Method Nasal Cannula 09/15/23 11:27 O2 Flow Rate 3 09/15/23 11:27 FiO2 30 09/15/23 03:30 09/14/23 09/15/23 09/15/23 22:59 06:59 14:59 Intake Total 1300 / 1300 120 / 120 Balance 1300 / 1300 120 / 120 Weight last 48 hrs Weight 102.2 kg Weight 88.451 kg Weight 88.451 kg Physical Exam 2 Const: COMMON NORMALS: no acute distress and patient oriented x3 Resp: COMMON NORMALS: normal respiratory effort, No retractions and No use of accessory muscles AUSCULTATION: crackles and wheezes Cardio: COMMON NORMALS: S1 normal heart sound present and S2 normal heart sound present RATE: tachycardic RHYTHM: abnormal rhythm HEART SOUNDS: S 1 normal heart sound present and S2 normal heart sound present GI: COMMON NORMALS: Normal to inspection, nondistended, normoactive bowel sounds present and non-tender Extremity: NARRATIVE EXTREMITY EXAM: 1+ edema Neuro: COMMON NORMALS: patient oriented x3 Psych: COMMON NORMALS: mental status grossly normal Data 09/15/23 04:39 09/15/23 04:39 Micro: Microbiology 09/14/23 14:45 Blood Culture - Preliminary Blood Streptococcus pneumoniae 09/14/23 14:54 Blood Culture - Preliminary Blood SPECIMEN COLLECTED A&P Assessment and plan (1) Pneumonia: (2) Diabetes: (3) Hypothyroidism: (4) BECKY (acute kidney injury): (5) NSTEMI (non-ST elevated myocardial infarction): (6) Atrial fibrillation with RVR: (7) Pulmonary edema: (8) Fluid overload: (9) Bacteremia due to Streptococcus pneumoniae: (10) CHF exacerbation: (11) Hypoalbuminemia: (12) Acute hypoxic respiratory failure: Plan Acute hypoxic respiratory failure -Multifactorial -From streptococcal pneumonia with streptococcal bacteremia -From fluid overload, CHF exacerbation With A-fib with RVR ? Plan -Sputum cultures, blood cultures, repeat blood cultures -Rocephin -azithromycin -Metoprolol 12.5mg twice daily ? Heparin drip ? 1 dose of Lasix IV 40 mg with albumin ? Follow repeat blood cultures ? Venous ultrasound ? CT angiogram chest next ?cardiac echo ? Telemetry monitoring -Repeat troponin series -DuoNeb -Monitor respiratory status closely Streptococcal pneumonia bacteremia, currently on Rocephin follow repeat blood cultures NSTEMI ? Type I versus type II ? Serial EKGs, short troponins, telemetry monitoring Systolic CHF exacerbation, -1 dose IV Lasix, with albumin A-fib with RVR -Metoprolol 12.5 twice daily ? Heparin drip Type 2 diabetes mellitus, low-dose sliding scale, A1c Hypothyroidism, TSH, continue levothyroxine BECKY, IV fluids, Full code, ? Lovenox for DVT prophylaxis Attestations 2 Medical Necessity Statement*: Patient requires hospitalization, inpatient, greater than 2 midnights, for acute hypoxic respiratory failure secondary to streptococcal pneumonia with streptococcal pneumonia bacteremia, with A-fib with RVR with systolic CHF exacerbation NSTEMI,, systolic CHF Diagnoses Pneumonia J18.9 Diabetes E11.9 Hypothyroidism E03.9 BECKY (acute kidney injury) N17.9 NSTEMI (non-ST elevated myocardial infarction) I21.4 Atrial fibrillation with RVR I48.91 Pulmonary edema J81.1 Fluid overload E87.70 Bacteremia due to Streptococcus pneumoniae R78.81; B95.3 CHF exacerbation I50.9 Hypoalbuminemia E88.09 Acute hypoxic respiratory failure J96.01
[2023-09-15] MEDS: iohexol 350 mg/mL 500 mL Btl (per mL) IV (11:42)
--- NOTE | 2023-09-15 11:45 | PC.SOCIAL ---
Pg 2 IMM Explained to pt Pg 2 IMM. No questions voiced. Provided pt a copy. Initialed, dated, & timed a copy & placed in chart.
[2023-09-15] MEDS: insulin glargine 100 units/1 mL 8 UNIT SUBCUT (12:34)
[2023-09-15] MEDS: heparin drip 25,000 UNIT/500 ML PREMIX 28.620000000000001 UNIT IV (12:39)
[2023-09-15 13:06] LABS: D Dimer 3.72 ug/mLFEU (0-0.59)
[2023-09-15 13:16] LABS: Troponin(5th) Baseline 21 ng/L (0-10)
[2023-09-15 15:08] LABS: Troponin 5 2HR 22.13 ng/L (0-10); Troponin 5 2HR Delta 1.13 ABS# (0-10)
--- NOTE | 2023-09-15 15:19 | XRR_ITS ---
PROCEDURE INFORMATION: Exam: XR Chest Exam date and time: 09/15/2023 3:55 PM Age: 82 years old Clinical indication: Device placement; Picc; Additional info: Post picc insertion, nelda placing on ms room 275. Will call when ready TECHNIQUE: Imaging protocol: Radiologic exam of the chest. Views: 1 view. COMPARISON: CT angio chest PE protcl [id number] 09/15/2023 11:41 AM FINDINGS: Right chest port tip projects over the distal SVC. XR/XR chest 1V portable [id number] IMPRESSION: As above.
--- NOTE | 2023-09-15 16:32 | PC.NURSE ---
Triple lumen PICC placed to right basilic vein. Referred to vascular access nurse for PICC placement due to heparin drip and need for multiple lab draws. Risks and benefits discussed with patient and consent obtained. Right arm assessed with right basilic vein measuring 3.8 mm, straight, and apparent best choice for placement. Using sterile technique and MST, right basilic vein accessed x 1 stick. Mid-arm circumference measured 10 cm from right AC 38 cm. Trimmed cath 47 cm with 0 cm external length noted. CXR shows tip in distal SVC, in good position for use per radiologist. Line secured with stat-lock. Insertion site covered with Biopatch, gauze, and TSM. Report given to bedside nurseWendy.
[2023-09-15 16:52] LABS: Glucose Point of Care 244 mg/dL (70-110)
[2023-09-15 17:15] LABS: Anion Gap 18.1 (5-19); Blood Urea Nitrogen 44 mg/dL (8-23); Calcium 7.8 mg/dL (8.5-10.5); Carbon Dioxide 21 mmol/L (22-29); Chloride 98 mmol/L (98-107); Creatinine Clr Calc Pharmacy 45.1814; Glucose 253 mg/dL (65-115); Osmolality Calculated 298 mOsm/kg (285-295); Potassium 3.1 mmol/L (3.5-5.1); Sodium 134 mmol/L (136-145)
[2023-09-15] MEDS: metoprolol tartrate 25 mg Tablet PO (17:27)
[2023-09-15] MEDS: cefTRIAXone 1,000 MG in sodium chloride 0.9% (plus) 50 ML 100 MG IV (17:27)
[2023-09-15] MEDS: pantoprazole 40 mg SDV IVP (17:37)
[2023-09-15] MEDS: azithromycin 500 MG in sodium chloride 0.9% 250 ML 250 MG IV (17:40)
[2023-09-15] MEDS: potassium chloride ER 20 mEq Tablet PO (18:41)
[2023-09-15] MEDS: potassium phosphate (mMol PO4) 15 MMOL in sodium chloride 0.9% (100 ml) 100 ML 42 MMOL IV (18:42)
[2023-09-15 19:20] LABS: Partial Thromboplastin Time 39.1 SECONDS (23.9-36.7)
[2023-09-15] MEDS: heparin 5,000 unit/mL INJ 1 mL IV (19:44)
[2023-09-15 20:23] LABS: Troponin 5 6HR 24.23 ng/L (0-10); Troponin 5 6HR Delta 3.23 ng/L (0-12)
[2023-09-15 21:29] LABS: Glucose Point of Care 171 mg/dL (70-110)
[2023-09-16] VITALS (19 sets, daily range): BP systolic 113–155; BP diastolic 54–95; PULSE 97–113; RESP 17–30; TEMP 36.6–37.1; O2SAT 92–97; BMI 35.4
[2023-09-16 01:07] LABS: Add Urine Microscopic? YES; Bilirubin Urine Neg (Negative); Blood Urine 2+ (Negative); Glucose Urine UA Norm (Normal); Ketones Urine Negative (Negative); Leukocyte Esterase Urine Negative (Negative); Nitrate Urine Negative (Negative); Protein Urine 1+ (Negative); Urine Appearance Hazy (CLEAR); Urine Color Yellow (Yellow); Urobilinogen Urine Neg (Negative); pH Urine 5 (5-7)
[2023-09-16 01:08] LABS: Add Urine Culture? Yes; Amorphous Sediment Urine 1+ /hpf; Bacteria Urine 2+ /hpf; RBC Urine 0-4 /hpf (0-2); Squamous Epithelial Cell Urine 0-4 /hpf (0-5)
[2023-09-16 02:17] LABS: Basophils # 0.1 10^3/uL (0.0-0.1); Basophils % 0.5 %; Eosinophils % 0.1 %; Hematocrit 30.7 % (36-47); Lymphocytes # 1.4 10^3/uL (0.8-4.8); Lymphocytes % 6.5 %; Mean Corpuscular HGB Conc 33.2 g/dL (30-55); Mean Corpuscular Hemoglobin 30.5 pg (27-33); Mean Corpuscular Volume 91.9 fl (85-98); Mean Platelet Volume 10.6 fL (7.4-10.4); Monocytes # 0.6 10^3/uL (0.2-0.9); Monocytes % 2.8 %; Neutrophils # 18.61 10^3/uL (1.8-7.7); Neutrophils % 89.1 %; Nucleated Red Blood Cells % 0 %; Platelet Count 197 10^3/cmm (157-399); Red Blood Count 3.34 10^6/uL (3.85-5.65); White Blood Count 20.89 10^3/uL (3.29-11.43)
[2023-09-16] MEDS: ipratropium-albuterol 3 mL Neb INHALATION ×5 (04:05→20:05)
[2023-09-16 04:33] LABS: NT Pro B Type Natriuretic Pept 3130 pg/mL (0-450); Procalcitonin 3.43 ng/mL (0-0.5)
[2023-09-16 04:40] LABS: Partial Thromboplastin Time 50.4 SECONDS (23.9-36.7)
[2023-09-16 04:44] LABS: Alanine Aminotransferase 14 U/L (0-33); Albumin Level 2.6 g/dL (3.5-5.2); Alkaline Phosphatase 92 U/L (35-105); Anion Gap 16.9 (5-19); Aspartate Amino Transferase 16 U/L (0-32); Blood Urea Nitrogen 36 mg/dL (8-23); Calcium 7.4 mg/dL (8.5-10.5); Carbon Dioxide 20 mmol/L (22-29); Chloride 98 mmol/L (98-107); Globulin 3.3 g/dL (1.3-4.6); Glucose 158 mg/dL (65-115); Magnesium 2.1 mg/dL (1.7-2.3); Osmolality Calculated 286 mOsm/kg (285-295); Phosphorus 1.8 mg/dL (2.5-4.5); Sodium 132 mmol/L (136-145); Total Bilirubin 0.4 mg/dL (0.15-1.2); Total Protein 5.9 g/dL (6.6-8.7)
[2023-09-16 04:56] LABS: C Reactive Protein 486.1 mg/L (0.0-4.9); Creatinine Clr Calc Pharmacy 54.2177
[2023-09-16 04:58] LABS: Potassium 2.9 mmol/L (3.5-5.1)
[2023-09-16] MEDS: heparin drip 25,000 UNIT/500 ML PREMIX 34 UNIT IV (05:03)
[2023-09-16] MEDS: heparin 5,000 unit/mL INJ 1 mL IV ×3 (05:10→19:50)
[2023-09-16] MEDS: levothyroxine 75 mcg Tablet PO (05:14)
[2023-09-16] MEDS: metoprolol tartrate 25 mg Tablet PO ×2 (05:14→18:46)
[2023-09-16] MEDS: potassium chloride ER 20 mEq Tablet 60 MEQ PO (06:24)
--- NOTE | 2023-09-16 07:00 | XRR_ITS ---
PROCEDURE INFORMATION: Exam: XR Chest Exam date and time: 09/16/2023 7:53 AM Age: 82 years old Clinical indication: Dyspnea and shortness of breath; Additional info: SOB TECHNIQUE: Imaging protocol: Radiologic exam of the chest. Views: 1 view. COMPARISON: CR XR chest 1V portable [id number] 09/15/2023 3:55 PM FINDINGS: Tubes, catheters and devices: Right upper extremity PICC tip is in the superior cavoatrial junction. Lungs: Similar left pleural effusion with left lower lobe consolidation/collapse. Pleural spaces: Small right pleural effusion. Heart/Mediastinum: Unremarkable. No cardiomegaly. Bones/joints: Mild degenerative disease of the right acromioclavicular joint. Mild curvature of the thoracic spine convex to the right. XR/XR chest 1V portable [id number] IMPRESSION: Similar left pleural effusion with left lower lobe consolidation/collapse.
[2023-09-16 07:07] LABS: Glucose Point of Care 198 mg/dL (70-110)
[2023-09-16] MEDS: insulin lispro 100 unit/1 mL SUBCUT ×3 (08:04→18:45)
[2023-09-16] MEDS: morphine 4 mg/mL SDV 1 mL 1 MG IVP ×2 (09:10→14:41)
[2023-09-16 11:07] LABS: Glucose Point of Care 199 mg/dL (70-110)
[2023-09-16 11:15] LABS: Partial Thromboplastin Time 42.3 SECONDS (23.9-36.7)
--- NOTE | 2023-09-16 11:51 | P.PN_ITS ---
Subjective 2 Subjective: Patient was seen this morning, she does continue to complain of shortness of breath, this morning she is a bit tachypneic short of breath with a few words, I had extensive discussion with her about her strep pneumonia, strep pneumonia bacteremia now with right pulmonary emboli,, her echocardiogram findings of atrial septal aneurysm, she is on a heparin drip will continue to monitor her clinical status closely Vitals/I&O/Wt Last Vital Signs Temp 98.1 F 09/16/23 07:36 Pulse 101 H 09/16/23 11:27 Resp 18 09/16/23 11:22 BP 155/95 09/16/23 07:36 Pulse Ox 97 09/16/23 11:22 O2 Del Method Nasal Cannula 09/16/23 11:22 O2 Flow Rate 3 09/16/23 11:22 FiO2 30 09/15/23 03:30 09/15/23 09/16/23 09/16/23 22:59 06:59 14:59 Intake Total 607.725 / 827.725 847.275 / 1675.000 240 / 240 Output Total 1000 / 1000 Balance 607.725 / 827.725 -152.725 / 675.000 240 / 240 Weight last 48 hrs Weight 102.648 kg Weight 102.2 kg Weight 88.451 kg Weight 88.451 kg Physical Exam 2 Const: COMMON NORMALS: no acute distress and patient oriented x3 Resp: COMMON NORMALS: normal respiratory effort and No retractions A USCULTATION: crackles and wheezes OTHER: Tachypnea, nasal flaring short of breath with a few words Cardio: COMMON NORMALS: S1 normal heart sound present and S2 normal heart sound present RATE: tachycardic RHYTHM: abnormal rhythm HEART SOUNDS: S 1 normal heart sound present and S2 normal heart sound present GI: COMMON NORMALS: Normal to inspection, nondistended, normoactive bowel sounds present and non-tender Extremity: COMMON NORMALS: no pedal edema Neuro: COMMON NORMALS: patient oriented x3 Psych: COMMON NORMALS: mental status grossly normal Urinary Catheter Management: Morales: Cath Placed During This Visit: yes Reason for Continuing Indwelling Catheter: Other Urinary Catheter Date of Insertion: 09/15/23 Urinary Catheter Time of Insertion: 16:36 Data 09/16/23 02:04 09/16/23 03:45 Micro: Microbiology 09/16/23 07:11 Blood Culture - Preliminary Blood SPECIMEN COLLECTED 09/16/23 07:05 Blood Culture - Preliminary Blood SPECIMEN COLLECTED 09/14/23 14:54 Blood Culture - Preliminary Blood NEGATIVE TO DATE 09/14/23 14:45 Blood Culture - Preliminary Blood Streptococcus pneumoniae A&P Assessment and plan (1) Pneumonia: (2) Diabetes: (3) Hypothyroidism: (4) BECKY (acute kidney injury): (5) NSTEMI (non-ST elevated myocardial infarction): (6) Atrial fibrillation with RVR: (7) Pulmonary edema: (8) Fluid overload: (9) Bacteremia due to Streptococcus pneumoniae: (10) CHF exacerbation: (11) Hypoalbuminemia: (12) Acute hypoxic respiratory failure: (13) Pulmonary embolism: (14) Atrial septal aneurysm: (15) Sepsis: Plan Acute hypoxic respiratory failure -Multifactorial -From streptococcal pneumonia with streptococcal bacteremia ? With right pulmonary embolism -From fluid overload, CHF exacerbation With A-fib with RVR ? Plan -Sputum cultures, blood cultures, repeat blood cultures -Rocephin -azithromycin -Metoprolol 12.5mg twice daily ? Heparin drip ? 1 dose of Lasix IV 40 mg with albumin ? Follow repeat blood cultures ? Telemetry monitoring -Repeat troponin series -DuoNeb -Monitor respiratory status closely Pulmonary embolism, right-sided, as above 1. Acute pulmonary emboli in segmental and subsegmental pulmonary arteries described above. 2. Suggestion of mild RIGHT heart strain 3. Complete dense consolidation of the LEFT lower lobe with air bronchograms. 4. Slight subsegmental atelectasis RIGHT lower lobe. 5. Small amount of entrapped fluid in the LEFT upper lobe along the fissure. Right atrial septal aneurysm, Normal left ventricular size, systolic function and wall thickness, with no regional wall motion abnormalities. Rhythm precludes evaluation of diastolic function. Left ventricular ejection fraction is estimated at 65 %. The right atrium is normal in size. 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 There are no prior echocardiogram studies to compare. Sepsis, secondary to strep pneumonia strep pneumonia bacteremia -Sepsis features include hypoxia, tachycardia, A-fib, elevated white count, Pro- Tee, CRP Streptococcal pneumonia bacteremia, currently on Rocephin follow repeat blood cultures NSTEMI ? Type I versus type II ? Serial EKGs, short troponins, telemetry monitoring Systolic CHF exacerbation, -1 dose IV Lasix, with albumin A-fib with RVR -Metoprolol 25 mg twice daily ? Heparin drip Type 2 diabetes mellitus, low-dose sliding scale, A1c Hypothyroidism, TSH, continue levothyroxine BECKY, IV fluids, has been stopped Full code, ? Lovenox for DVT prophylaxis Plan for today monitor respiratory status closely, 1 dose IV Lasix continue heparin drip continue Rocephin, azithromycin, will consider steroids based on clinical progress, point family comes twice daily, replace potassium Attestations 2 Medical Necessity Statement*: Patient requires hospitalization, for pulmonary embolism respiratory failure secondary to strep pneumonia strep pneumonia bacteremia, NSTEMI, atrial septal aneurysm, fluid overload Diagnoses Pneumonia J18.9 Diabetes E11.9 Hypothyroidism E03.9 BECKY (acute kidney injury) N17.9 NSTEMI (non-ST elevated myocardial infarction) I21.4 Atrial fibrillation with RVR I48.91 Pulmonary edema J81.1 Fluid overload E87.70 Bacteremia due to Streptococcus pneumoniae R78.81; B95.3 CHF exacerbation I50.9 Hypoalbuminemia E88.09 Acute hypoxic respiratory failure J96.01 Pulmonary embolism I26.99 Atrial septal aneurysm I25.3 Sepsis A41.9
[2023-09-16] MEDS: FUROsemide 10 mg/mL SDV 4mL 20 MG IVP (12:43)
[2023-09-16] MEDS: lidocaine 1% 5 ML in potassium chloride premix 100 ML 52.5 ML IV (12:49)
[2023-09-16 17:46] LABS: Glucose Point of Care 212 mg/dL (70-110)
[2023-09-16 18:12] LABS: Partial Thromboplastin Time 37.1 SECONDS (23.9-36.7)
[2023-09-16] MEDS: azithromycin 500 MG in sodium chloride 0.9% 250 ML 250 MG IV (18:37)
[2023-09-16] MEDS: pantoprazole 40 mg SDV IVP (18:43)
[2023-09-16] MEDS: cefTRIAXone 1,000 MG in sodium chloride 0.9% (plus) 50 ML 100 MG IV (18:44)
[2023-09-16] MEDS: heparin drip 25,000 UNIT/500 ML PREMIX 38 UNIT IV (20:34)
[2023-09-16 20:44] LABS: Glucose Point of Care 174 mg/dL (70-110)
[2023-09-17] VITALS (21 sets, daily range): BP systolic 112–172; BP diastolic 52–82; PULSE 86–118; RESP 16–24; TEMP 36.8–37.2; O2SAT 95–99; BMI 35.1
[2023-09-17] MEDS: ipratropium-albuterol 3 mL Neb INHALATION ×7 (00:30→23:35)
[2023-09-17 01:18] LABS: Basophils # 0.1 10^3/uL (0.0-0.1); Basophils % 0.4 %; Eosinophils % 0.2 %; Hematocrit 32.4 % (36-47); Lymphocytes # 2.6 10^3/uL (0.8-4.8); Lymphocytes % 13.8 %; Mean Corpuscular HGB Conc 32.1 g/dL (30-55); Mean Corpuscular Hemoglobin 30.3 pg (27-33); Mean Corpuscular Volume 94.5 fl (85-98); Mean Platelet Volume 9.6 fL (7.4-10.4); Monocytes # 0.9 10^3/uL (0.2-0.9); Monocytes % 4.5 %; Neutrophils # 14.96 10^3/uL (1.8-7.7); Neutrophils % 78.3 %; Nucleated Red Blood Cells % 0 %; Platelet Count 291 10^3/cmm (157-399); Red Blood Count 3.43 10^6/uL (3.85-5.65); Red Cell Distribution Width 14.5 % (12.1-15.1); White Blood Count 19.09 10^3/uL (3.29-11.43)
[2023-09-17 01:36] LABS: Alanine Aminotransferase 28 U/L (0-33); Albumin Level 2.5 g/dL (3.5-5.2); Alkaline Phosphatase 79 U/L (35-105); Anion Gap 17.3 (5-19); Aspartate Amino Transferase 32 U/L (0-32); Blood Urea Nitrogen 24 mg/dL (8-23); Calcium 7.8 mg/dL (8.5-10.5); Carbon Dioxide 21 mmol/L (22-29); Chloride 99 mmol/L (98-107); Creatinine Clr Calc Pharmacy 59.3572; Globulin 3.3 g/dL (1.3-4.6); Glucose 192 mg/dL (65-115); Osmolality Calculated 287 mOsm/kg (285-295); Phosphorus 1.9 mg/dL (2.5-4.5); Potassium 3.3 mmol/L (3.5-5.1); Sodium 134 mmol/L (136-145); Total Bilirubin 0.5 mg/dL (0.15-1.2); Total Protein 5.8 g/dL (6.6-8.7)
[2023-09-17 01:40] LABS: Partial Thromboplastin Time 81.5 SECONDS (23.9-36.7)
[2023-09-17 01:48] LABS: C Reactive Protein 383.9 mg/L (0.0-4.9)
[2023-09-17 01:59] LABS: NT Pro B Type Natriuretic Pept 2766 pg/mL (0-450); Procalcitonin 2.16 ng/mL (0-0.5)
[2023-09-17] MEDS: metoprolol tartrate 25 mg Tablet PO (05:18)
[2023-09-17] MEDS: levothyroxine 75 mcg Tablet PO (05:18)
[2023-09-17 06:50] LABS: Glucose Point of Care 213 mg/dL (70-110)
[2023-09-17] MEDS: insulin lispro 100 unit/1 mL SUBCUT ×3 (08:44→18:02)
[2023-09-17] MEDS: potassium phosphate (mEq K) 40 MEQ in sodium chloride 0.9% (100 ml) 100 ML 27.2699999999999996 MEQ IV (09:59)
[2023-09-17] MEDS: FUROsemide 10 mg/mL SDV 4mL 40 MG IVP (10:01)
[2023-09-17 10:06] LABS: Partial Thromboplastin Time 49.2 SECONDS (23.9-36.7)
[2023-09-17] MEDS: heparin 5,000 unit/mL INJ 1 mL IV ×2 (10:38→17:38)
[2023-09-17] MEDS: heparin drip 25,000 UNIT/500 ML PREMIX 37 UNIT IV (11:22)
[2023-09-17 11:57] LABS: Glucose Point of Care 247 mg/dL (70-110)
--- NOTE | 2023-09-17 12:28 | P.PN_ITS ---
Subjective 2 Subjective: Patient was seen this morning, she continues to complain of shortness of breath but tells me she significantly feels better, no fevers overnight, heart rate remained in the 110s, A-fib, she remains on 3 L, discussed diuresis as she has pitting edema Vitals/I&O/Wt Last Vital Signs Temp 98.4 F 09/17/23 12:00 Pulse 108 H 09/17/23 12:00 Resp 20 H 09/17/23 12:00 BP 155/65 09/17/23 12:00 Pulse Ox 95 09/17/23 12:00 O2 Del Method Nasal Cannula 09/17/23 12:00 O2 Flow Rate 3 09/17/23 10:59 FiO2 30 09/15/23 03:30 09/16/23 09/17/23 09/17/23 21:59 06:59 14:59 Intake Total 777.333 / 777.333 Output Total Balance 777.333 / 777.333 Weight last 48 hrs Weight 101.741 kg Weight 102.648 kg Physical Exam 2 Const: COMMON NORMALS: no acute distress and patient oriented x3 Resp: COMMON NORMALS: normal respiratory effort, No retractions and No use of accessory muscles AUSCULTATION: crackles and wheezes Cardio: COMMON NORMALS: S1 normal heart sound present and S2 normal heart sound present RATE: tachycardic RHYTHM: abnormal rhythm HEART SOUNDS: S 1 normal heart sound present and S2 normal heart sound present GI: COMMON NORMALS: Normal to inspection, nondistended, normoactive bowel sounds present and non-tender Neuro: COMMON NORMALS: patient oriented x3 Psych: COMMON NORMALS: mental status grossly normal Urinary Catheter Management: Morales: Cath Placed During This Visit: yes Reason for Continuing Indwelling Catheter: Assist healing open wound Urinary Catheter Date of Insertion: 09/15/23 Urinary Catheter Time of Insertion: 16:36 Data 09/17/23 00:07 09/17/23 00:07 Micro: Microbiology 09/16/23 00:40 Urine Culture - Preliminary Urine,Clean Catch 09/16/23 07:11 Blood Culture - Preliminary Blood NEGATIVE TO DATE 09/16/23 07:05 Blood Culture - Preliminary Blood NEGATIVE TO DATE A&P Assessment and plan (1) Pneumonia: (2) Diabetes: (3) Hypothyroidism: (4) BECKY (acute kidney injury): (5) NSTEMI (non-ST elevated myocardial infarction): (6) Atrial fibrillation with RVR: (7) Pulmonary edema: (8) Fluid overload: (9) Bacteremia due to Streptococcus pneumoniae: (10) CHF exacerbation: (11) Hypoalbuminemia: (12) Acute hypoxic respiratory failure: (13) Pulmonary embolism: (14) Atrial septal aneurysm: (15) Sepsis: Plan Acute hypoxic respiratory failure -Multifactorial -From streptococcal pneumonia with streptococcal bacteremia ? With right pulmonary embolism -From fluid overload, CHF exacerbation With A-fib with RVR ? Plan -Sputum cultures, blood cultures, repeat blood cultures -Rocephin -azithromycin -Metoprolol increased to 50 twice daily ? Heparin drip ? 1 dose of Lasix IV 40 mg today due to fluid overload ? Follow repeat blood cultures, so far negative ? Telemetry monitoring -Repeat troponin series -DuoNeb -Monitor respiratory status closely Pulmonary embolism, right-sided, as above 1. Acute pulmonary emboli in segmental and subsegmental pulmonary arteries described above. 2. Suggestion of mild RIGHT heart strain 3. Complete dense consolidation of the LEFT lower lobe with air bronchograms. 4. Slight subsegmental atelectasis RIGHT lower lobe. 5. Small amount of entrapped fluid in the LEFT upper lobe along the fissure. Right atrial septal aneurysm, Normal left ventricular size, systolic function and wall thickness, with no regional wall motion abnormalities. Rhythm precludes evaluation of diastolic function. Left ventricular ejection fraction is estimated at 65 %. The right atrium is normal in size. 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 There are no prior echocardiogram studies to compare. Sepsis, secondary to strep pneumonia strep pneumonia bacteremia -Sepsis features include hypoxia, tachycardia, A-fib, elevated white count, Pro- Tee, CRP Streptococcal pneumonia bacteremia, currently on Rocephin follow repeat blood cultures NSTEMI ? Type I versus type II ? Serial EKGs, short troponins, telemetry monitoring Systolic CHF exacerbation, -1 dose IV Lasix, A-fib with RVR -Metoprolol 50 mg twice daily ? Heparin drip Type 2 diabetes mellitus, low-dose sliding scale, A1c Hypothyroidism, TSH, continue levothyroxine BECKY, IV fluids, has been stopped Full code, ? Lovenox for DVT prophylaxis Plan for today 1 dose IV Lasix monitor respiratory status continue Rocephin for strep pneumonia bacteremia leukocytosis remains 19,000, continue heparin drip, increase metoprolol to 50 twice daily, continue to monitor clinical status closely for respiratory failure PE septal aneurysm NSTEMI CHF A-fib, spoke to nursing staff, spoke to patient Attestations 2 Medical Necessity Statement*: Patient requires hospitalization for acute respiratory failure secondary to streptococcal pneumonia, pneumonia streptococcal pneumonia bacteremia with pulmonary embolism with NSTEMI with A-fib Diagnoses Pneumonia J18.9 Diabetes E11.9 Hypothyroidism E03.9 BECKY (acute kidney injury) N17.9 NSTEMI (non-ST elevated myocardial infarction) I21.4 Atrial fibrillation with RVR I48.91 Pulmonary edema J81.1 Fluid overload E87.70 Bacteremia due to Streptococcus pneumoniae R78.81; B95.3 CHF exacerbation I50.9 Hypoalbuminemia E88.09 Acute hypoxic respiratory failure J96.01 Pulmonary embolism I26.99 Atrial septal aneurysm I25.3 Sepsis A41.9
[2023-09-17 15:20] LABS: Partial Thromboplastin Time 52.8 SECONDS (23.9-36.7)
[2023-09-17 17:02] LABS: Glucose Point of Care 246 mg/dL (70-110)
[2023-09-17] MEDS: azithromycin 500 MG in sodium chloride 0.9% 250 ML 250 MG IV (18:00)
[2023-09-17] MEDS: cefTRIAXone 1,000 MG in sodium chloride 0.9% (plus) 50 ML 100 MG IV (18:01)
[2023-09-17] MEDS: metoprolol tartrate 50 mg Tablet PO (18:01)
[2023-09-17] MEDS: pantoprazole 40 mg SDV IVP (18:16)
[2023-09-17 20:43] LABS: Glucose Point of Care 281 mg/dL (70-110)
[2023-09-17 21:32] LABS: Partial Thromboplastin Time 67.7 SECONDS (23.9-36.7)
[2023-09-18] VITALS (15 sets, daily range): BP systolic 124–161; BP diastolic 69–83; PULSE 82–114; RESP 16–34; TEMP 36.7–37.1; O2SAT 94–97
[2023-09-18] MEDS: heparin drip 25,000 UNIT/500 ML PREMIX 38 UNIT IV (00:41)
[2023-09-18 03:19] LABS: Basophils % 0.3 %; Eosinophils # 0.1 10^3/uL (0.0-0.8); Eosinophils % 0.8 %; Hematocrit 30.1 % (36-47); Lymphocytes # 2.9 10^3/uL (0.8-4.8); Lymphocytes % 18.5 %; Mean Corpuscular HGB Conc 32.9 g/dL (30-55); Mean Corpuscular Hemoglobin 30.1 pg (27-33); Mean Corpuscular Volume 91.5 fl (85-98); Mean Platelet Volume 9.8 fL (7.4-10.4); Monocytes # 0.9 10^3/uL (0.2-0.9); Monocytes % 6.1 %; Neutrophils # 10.39 10^3/uL (1.8-7.7); Nucleated Red Blood Cells % 0 %; Platelet Count 331 10^3/cmm (157-399); Red Blood Count 3.29 10^6/uL (3.85-5.65); Red Cell Distribution Width 14.4 % (12.1-15.1); White Blood Count 15.48 10^3/uL (3.29-11.43)
[2023-09-18] MEDS: ipratropium-albuterol 3 mL Neb INHALATION ×4 (03:25→20:05)
[2023-09-18 03:28] LABS: Partial Thromboplastin Time 63.4 SECONDS (23.9-36.7)
[2023-09-18 03:47] LABS: Alanine Aminotransferase 41 U/L (0-33); Albumin Level 2.4 g/dL (3.5-5.2); Alkaline Phosphatase 73 U/L (35-105); Anion Gap 12.3 (5-19); Aspartate Amino Transferase 39 U/L (0-32); Blood Urea Nitrogen 21 mg/dL (8-23); C Reactive Protein 315.6 mg/L (0.0-4.9); Calcium 7.7 mg/dL (8.5-10.5); Carbon Dioxide 26 mmol/L (22-29); Chloride 100 mmol/L (98-107); Creatinine Clr Calc Pharmacy 59.0812; Globulin 3.2 g/dL (1.3-4.6); Glucose 211 mg/dL (65-115); Osmolality Calculated 289 mOsm/kg (285-295); Phosphorus 2.2 mg/dL (2.5-4.5); Potassium 3.3 mmol/L (3.5-5.1); Sodium 135 mmol/L (136-145); Total Bilirubin 0.5 mg/dL (0.15-1.2); Total Protein 5.6 g/dL (6.6-8.7)
[2023-09-18 04:01] LABS: NT Pro B Type Natriuretic Pept 3054 pg/mL (0-450); Procalcitonin 1.45 ng/mL (0-0.5)
[2023-09-18] MEDS: metoprolol tartrate 50 mg Tablet PO ×2 (05:14→17:45)
[2023-09-18] MEDS: levothyroxine 75 mcg Tablet PO (05:14)
[2023-09-18 06:52] LABS: Glucose Point of Care 225 mg/dL (70-110)
[2023-09-18] MEDS: insulin lispro 100 unit/1 mL SUBCUT ×3 (07:36→17:44)
[2023-09-18] MEDS: apixaban 5 mg Tablet 10 MG PO ×2 (08:17→20:31)
[2023-09-18] MEDS: potassium phosphate (mEq K) 40 MEQ in sodium chloride 0.9% (100 ml) 100 ML 27.2699999999999996 MEQ IV (08:18)
[2023-09-18 09:18] LABS: Partial Thromboplastin Time 60.1 SECONDS (23.9-36.7)
[2023-09-18 11:45] LABS: Glucose Point of Care 155 mg/dL (70-110)
--- NOTE | 2023-09-18 12:18 | P.PN_ITS ---
Subjective 2 Subjective: Patient was seen this morning, her friend is at bedside, she tells me that her shortness of breath is improving, her wheezing is improving, she continues to have a poor appetite, her strength is also improving Vitals/I&O/Wt Last Vital Signs Temp 98.1 F 09/18/23 11:59 Pulse 82 09/18/23 11:59 Resp 16 09/18/23 11:59 BP 124/77 09/18/23 11:59 Pulse Ox 95 09/18/23 11:59 O2 Del Method Nasal Cannula 09/18/23 07:53 O2 Flow Rate 2 09/18/23 07:45 FiO2 30 09/15/23 03:30 09/17/23 09/18/23 09/18/23 22:59 06:59 14:59 Intake Total 707.400 / 2073.2436 216.1 / 2289.3436 443.3 / 443.3 Output Total 500 / 2000 1350 / 3350 Balance 207.400 / 73.2436 -1133.9 / -1060.6564 443.3 / 443.3 Weight last 48 hrs Weight 103.873 kg Weight 101.741 kg Physical Exam 2 Const: COMMON NORMALS: no acute distress and patient oriented x3 Resp: COMMON NORMALS: normal respiratory effort, No retractions and No use of accessory muscles AUSCULTATION: wheezes Cardio: COMMON NORMALS: regular rate, regular rhythm, S1 normal heart sound present and S2 normal heart sound present RATE: regular rate RHYTHM: r egular rhythm HEART SOUNDS: S1 normal heart sound present and S2 normal heart sound present GI: COMMON NORMALS: Normal to inspection, nondistended, normoactive bowel sounds present and non-tender Extremity: COMMON NORMALS: capillary refill normal and no pedal edema Neuro: COMMON NORMALS: patient oriented x3 Psych: COMMON NORMALS: mental status grossly normal Urinary Catheter Management: Morales: Cath Placed During This Visit: yes Reason for Continuing Indwelling Catheter: Other Urinary Catheter Date of Insertion: 09/15/23 Urinary Catheter Time of Insertion: 16:36 Data 09/18/23 02:47 09/18/23 02:47 Micro: Microbiology 09/16/23 00:40 Urine Culture - Final Urine,Clean Catch 09/14/23 14:45 Blood Culture - Preliminary Blood Streptococcus pneumoniae 09/16/23 07:11 Blood Culture - Preliminary Blood NEGATIVE TO DATE 09/16/23 07:05 Blood Culture - Preliminary Blood NEGATIVE TO DATE A&P Assessment and plan (1) Pneumonia: (2) Diabetes: (3) Hypothyroidism: (4) BECKY (acute kidney injury): (5) NSTEMI (non-ST elevated myocardial infarction): (6) Atrial fibrillation with RVR: (7) Pulmonary edema: (8) Fluid overload: (9) Bacteremia due to Streptococcus pneumoniae: (10) CHF exacerbation: (11) Hypoalbuminemia: (12) Acute hypoxic respiratory failure: (13) Pulmonary embolism: (14) Atrial septal aneurysm: (15) Sepsis: Plan Acute hypoxic respiratory failure -Multifactorial -From streptococcal pneumonia with streptococcal bacteremia ? With right pulmonary embolism -From fluid overload, CHF exacerbation With A-fib with RVR ? Plan -Sputum cultures, blood cultures, repeat blood cultures -Rocephin -azithromycin -Metoprolol increased to 50 twice daily ? Transition to Eliquis ? Hold Lasix for today ? Follow repeat blood cultures, so far negative ? Telemetry monitoring -Repeat troponin series -DuoNeb -Monitor respiratory status closely Pulmonary embolism, right-sided, as above 1. Acute pulmonary emboli in segmental and subsegmental pulmonary arteries described above. 2. Suggestion of mild RIGHT heart strain 3. Complete dense consolidation of the LEFT lower lobe with air bronchograms. 4. Slight subsegmental atelectasis RIGHT lower lobe. 5. Small amount of entrapped fluid in the LEFT upper lobe along the fissure. Right atrial septal aneurysm, Normal left ventricular size, systolic function and wall thickness, with no regional wall motion abnormalities. Rhythm precludes evaluation of diastolic function. Left ventricular ejection fraction is estimated at 65 %. The right atrium is normal in size. 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 There are no prior echocardiogram studies to compare. Sepsis, secondary to strep pneumonia strep pneumonia bacteremia -Sepsis features include hypoxia, tachycardia, A-fib, elevated white count, Pro- Tee, CRP Streptococcal pneumonia bacteremia, currently on Rocephin follow repeat blood cultures NSTEMI ? Type I versus type II ? Serial EKGs, short troponins, telemetry monitoring Systolic CHF exacerbation, -1 dose IV Lasix, A-fib with RVR -Metoprolol 50 mg twice daily Type 2 diabetes mellitus, low-dose sliding scale, A1c Hypothyroidism, TSH, continue levothyroxine BECKY, IV fluids, has been stopped Full code, ? Lovenox for DVT prophylaxis Plan for today transition from heparin drip to Eliquis, switch azithromycin to p.o., replace electrolytes, hold diuresis for today, up out of bed, continue IV antibiotics IV Rocephin Attestations 2 Medical Necessity Statement*: Patient with hospitalization for streptococcal pneumonia streptococcal bacteremia with NSTEMI, with pulmonary embolism with atrial fibrillation Diagnoses Pneumonia J18.9 Diabetes E11.9 Hypothyroidism E03.9 BECKY (acute kidney injury) N17.9 NSTEMI (non-ST elevated myocardial infarction) I21.4 Atrial fibrillation with RVR I48.91 Pulmonary edema J81.1 Fluid overload E87.70 Bacteremia due to Streptococcus pneumoniae R78.81; B95.3 CHF exacerbation I50.9 Hypoalbuminemia E88.09 Acute hypoxic respiratory failure J96.01 Pulmonary embolism I26.99 Atrial septal aneurysm I25.3 Sepsis A41.9
[2023-09-18 15:48] LABS: Glucose Point of Care 171 mg/dL (70-110)
[2023-09-18] MEDS: cefTRIAXone 1,000 MG in sodium chloride 0.9% (plus) 50 ML 100 MG IV (17:45)
[2023-09-18] MEDS: pantoprazole 40 mg SDV IVP (17:45)
[2023-09-18] MEDS: azithromycin 250 mg Tablet PO (18:05)
[2023-09-18 20:22] LABS: Glucose Point of Care 251 mg/dL (70-110)
[2023-09-18] MEDS: acetaminophen 325 mg Tablet 650 MG PO (21:11)
[2023-09-19] VITALS (15 sets, daily range): BP systolic 115–145; BP diastolic 66–89; PULSE 68–102; RESP 16–32; TEMP 36.3–36.9; O2SAT 92–97
[2023-09-19] MEDS: ipratropium-albuterol 3 mL Neb INHALATION ×5 (03:40→19:58)
[2023-09-19 05:56] LABS: Mean Corpuscular HGB Conc 31.9 g/dL (30-55); Mean Corpuscular Volume 93.9 fl (85-98); Mean Platelet Volume 9.8 fL (7.4-10.4); Platelet Count 360 10^3/cmm (157-399); Red Cell Distribution Width 14.6 % (12.1-15.1); White Blood Count 10.91 10^3/uL (3.29-11.43)
[2023-09-19] MEDS: levothyroxine 75 mcg Tablet PO (05:57)
[2023-09-19] MEDS: metoprolol tartrate 50 mg Tablet PO ×2 (05:57→17:20)
[2023-09-19 06:17] LABS: Glucose Point of Care 216 mg/dL (70-110)
[2023-09-19 06:27] LABS: Procalcitonin 0.82 ng/mL (0-0.5)
[2023-09-19 06:29] LABS: Anion Gap 12.6 (5-19); Blood Urea Nitrogen 24 mg/dL (8-23); Calcium 7.9 mg/dL (8.5-10.5); Carbon Dioxide 26 mmol/L (22-29); Chloride 103 mmol/L (98-107); Creatinine Clr Calc Pharmacy 66.7614; Glucose 224 mg/dL (65-115); Osmolality Calculated 297 mOsm/kg (285-295); Potassium 3.6 mmol/L (3.5-5.1); Sodium 138 mmol/L (136-145)
[2023-09-19 06:32] LABS: Slide Review Slide Review Perform
[2023-09-19 06:33] LABS: Absolute Segmented Neutrophil 7.9 10/cmm (1.6-7.1); Band Neutrophils Absolute 0.2 10^3/cmm (0.0-1.2); Eosinophils 0 %; Lymphocytes 15 %; Lymphocytes Absolute 1.9 10^3/cmm (1.2-3.4); Monocytes Absolute 0.4 10^3/cmm (0.1-0.6); Segmented Neutrophils 72 %; Total Cells Counted 100 (0-100)
[2023-09-19 06:34] LABS: Absolute Neutrophil 8.1 10^3/cmm (1.4-6.5); C Reactive Protein 186.2 mg/L (0.0-4.9); Magnesium 2.2 mg/dL (1.7-2.3); Phosphorus 2.7 mg/dL (2.5-4.5); Platelet Estimate Normal (Normal)
[2023-09-19] MEDS: insulin lispro 100 unit/1 mL SUBCUT ×3 (07:42→17:19)
[2023-09-19] MEDS: apixaban 5 mg Tablet 10 MG PO ×2 (07:42→20:19)
[2023-09-19 09:13] LABS: NT Pro B Type Natriuretic Pept 2298 pg/mL (0-450)
--- NOTE | 2023-09-19 09:30 | PC.CHAP ---
Pastoral Care Encounter/Spiritual Assessment Type of Contact [] Declined international first officer visit [] Patient/Family/Request visit [] Outpatient visit [] Follow-up visit [] Physician referral [] Code/Alert [x] Routine visit [] Staff referral [] Actively dying [] Patient sleeping [] Family support [] [] Out of room [] Palliative care [] [] Receiving care in room [] Pre-surgical visit [] Trauma [] Long length of stay [] ICU visit [] Other: Relational/Emotional Strength [x] Patient feels connected with others/family/visitors/staff [] Distress [] Loneliness/isolation [] Abandonment Spirituality of Patient [x] Person of Juliana [] Attends Anabaptist of their Juliana [x] Believes in Prayer [] Reads Bible or Taoist materials [] There are Spiritual issues to be addressed Wellness Nurse Rn Interventions [x] Prayer [x] Active listening [] Non-anxious presence [x] Spiritual/emotional support [] Crisis/trauma care [] Spiritual counseling [] Bereavement support [] Provided bereavement packet [] Provided Bible/devotional materials [] Provided toy/stuffed animal, coloring book to patient or family member [] Provided Communion [] Anointing/[place] [] Salvation [x] Completed spiritual assessment [] Other: Impact on Illness or Injury [] Angry [] Fearful [] Anxious [] Often cries [] Exhaustion [] Unable to work [] Unable to attend restorationist [] Unable to walk/stand [] Unable to read [] Unable to drive [] Unable to eat/drink [] Unable to sleep [] Unable to be with family [] Patient intubated [] Other: Summary Time spent with patient 10 min
[2023-09-19 10:23] LABS: Glucose Point of Care 217 mg/dL (70-110)
[2023-09-19] MEDS: FUROsemide 10 mg/mL SDV 4mL 40 MG IVP (10:45)
[2023-09-19] MEDS: potassium chloride ER 20 mEq Tablet 40 MEQ PO (10:45)
--- NOTE | 2023-09-19 14:08 | P.PN_ITS ---
Subjective 2 Subjective: Patient was seen this morning, she tells me that her strength is improving, she does report lower extremity edema, Vitals/I&O/Wt Last Vital Signs Temp 97.9 F 09/19/23 12:00 Pulse 92 09/19/23 13:42 Resp 20 H 09/19/23 13:42 BP 129/79 09/19/23 12:00 Pulse Ox 93 09/19/23 13:42 O2 Del Method Room Air 09/19/23 13:42 O2 Flow Rate 2 09/19/23 13:33 FiO2 30 09/15/23 03:30 09/18/23 09/19/23 09/19/23 22:59 06:59 14:59 Intake Total 680 / 1951.8106 200 / 2151.8106 440 / 440 Output Total 1350 / 1350 600 / 1950 Balance -670 / 601.8106 -400 / 201.8106 440 / 440 Weight last 48 hrs Weight 102.603 kg Weight 103.873 kg Physical Exam 2 Const: COMMON NORMALS: no acute distress and patient oriented x3 Resp: COMMON NORMALS: normal respiratory effort, No retractions and No use of accessory muscles AUSCULTATION: crackles and wheezes Cardio: COMMON NORMALS: regular rate, regular rhythm, S1 normal heart sound present and S2 normal heart sound present RATE: regular rate RHYTHM: r egular rhythm HEART SOUNDS: S1 normal heart sound present and S2 normal heart sound present GI: COMMON NORMALS: Normal to inspection, nondistended, normoactive bowel sounds present and non-tender Extremity: NARRATIVE EXTREMITY EXAM: 2+ pitting edema Neuro: COMMON NORMALS: patient oriented x3 Psych: COMMON NORMALS: mental status grossly normal Urinary Catheter Management: Morales: Cath Placed During This Visit: yes Reason for Continuing Indwelling Catheter: Assist healing open wound Urinary Catheter Date of Insertion: 09/15/23 Urinary Catheter Time of Insertion: 16:36 Data 09/19/23 04:58 09/19/23 04:58 Micro: Microbiology 09/14/23 14:45 Blood Culture - Final Blood Streptococcus pneumoniae 09/16/23 00:40 Urine Culture - Final Urine,Clean Catch A&P Assessment and plan (1) Pneumonia: (2) Diabetes: (3) Hypothyroidism: (4) BECKY (acute kidney injury): (5) NSTEMI (non-ST elevated myocardial infarction): (6) Atrial fibrillation with RVR: (7) Pulmonary edema: (8) Fluid overload: (9) Bacteremia due to Streptococcus pneumoniae: (10) CHF exacerbation: (11) Hypoalbuminemia: (12) Acute hypoxic respiratory failure: (13) Pulmonary embolism: (14) Atrial septal aneurysm: (15) Sepsis: Plan Acute hypoxic respiratory failure -Multifactorial -From streptococcal pneumonia with streptococcal bacteremia ? With right pulmonary embolism -From fluid overload, CHF exacerbation With A-fib with RVR ? Plan -Sputum cultures, blood cultures, repeat blood cultures -Rocephin -azithromycin -Metoprolol increased to 50 twice daily ? Eliquis ? 2 doses of IV Lasix today ? Follow repeat blood cultures, so far negative ? Telemetry monitoring -Repeat troponin series -DuoNeb -Monitor respiratory status closely Pulmonary embolism, right-sided, as above 1. Acute pulmonary emboli in segmental and subsegmental pulmonary arteries described above. 2. Suggestion of mild RIGHT heart strain 3. Complete dense consolidation of the LEFT lower lobe with air bronchograms. 4. Slight subsegmental atelectasis RIGHT lower lobe. 5. Small amount of entrapped fluid in the LEFT upper lobe along the fissure. Right atrial septal aneurysm, Normal left ventricular size, systolic function and wall thickness, with no regional wall motion abnormalities. Rhythm precludes evaluation of diastolic function. Left ventricular ejection fraction is estimated at 65 %. The right atrium is normal in size. 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 There are no prior echocardiogram studies to compare. Sepsis, secondary to strep pneumonia strep pneumonia bacteremia -Sepsis features include hypoxia, tachycardia, A-fib, elevated white count, Pro- Tee, CRP Streptococcal pneumonia bacteremia, currently on Rocephin follow repeat blood cultures negative NSTEMI ? Type I versus type II ? Serial EKGs, short troponins, telemetry monitoring Systolic CHF exacerbation, -2 dose IV Lasix, A-fib with RVR -Metoprolol 50 mg twice daily Type 2 diabetes mellitus, low-dose sliding scale, A1c Hypothyroidism, TSH, continue levothyroxine BECKY, IV fluids, has been stopped Full code, ? Lovenox for DVT prophylaxis Plan for today IV Rocephin, 2 doses of IV Lasix Attestations 2 Medical Necessity Statement*: Patient requires hospitalization for pneumonia, fluid overload, A-fib requiring IV diuresis Diagnoses Pneumonia J18.9 Diabetes E11.9 Hypothyroidism E03.9 BECKY (acute kidney injury) N17.9 NSTEMI (non-ST elevated myocardial infarction) I21.4 Atrial fibrillation with RVR I48.91 Pulmonary edema J81.1 Fluid overload E87.70 Bacteremia due to Streptococcus pneumoniae R78.81; B95.3 CHF exacerbation I50.9 Hypoalbuminemia E88.09 Acute hypoxic respiratory failure J96.01 Pulmonary embolism I26.99 Atrial septal aneurysm I25.3 Sepsis A41.9
[2023-09-19 16:32] LABS: Glucose Point of Care 188 mg/dL (70-110)
[2023-09-19] MEDS: FUROsemide 10 mg/mL SDV 2mL 20 MG IVP (17:18)
[2023-09-19] MEDS: cefTRIAXone 1,000 MG in sodium chloride 0.9% (plus) 50 ML 100 MG IV (17:19)
[2023-09-19] MEDS: azithromycin 250 mg Tablet PO (17:19)
[2023-09-19] MEDS: pantoprazole 40 mg SDV IVP (17:20)
[2023-09-19] MEDS: acetaminophen 325 mg Tablet 650 MG PO (20:19)
[2023-09-19 20:39] LABS: Glucose Point of Care 208 mg/dL (70-110)
[2023-09-20] VITALS (8 sets, daily range): BP systolic 119–144; BP diastolic 69–79; PULSE 68–77; RESP 15–30; TEMP 36.3–36.8; O2SAT 92–96
[2023-09-20] MEDS: ipratropium-albuterol 3 mL Neb INHALATION (01:04)
[2023-09-20] MEDS: metoprolol tartrate 50 mg Tablet PO (05:12)
[2023-09-20] MEDS: levothyroxine 75 mcg Tablet PO (05:12)
[2023-09-20 05:45] LABS: Basophils # 0.1 10^3/uL (0.0-0.1); Basophils % 0.5 %; Eosinophils # 0.2 10^3/uL (0.0-0.8); Eosinophils % 1.4 %; Hematocrit 30.2 % (36-47); Lymphocytes # 1.8 10^3/uL (0.8-4.8); Lymphocytes % 16.7 %; Mean Corpuscular HGB Conc 32.5 g/dL (30-55); Mean Corpuscular Hemoglobin 30.7 pg (27-33); Mean Corpuscular Volume 94.7 fl (85-98); Mean Platelet Volume 9.5 fL (7.4-10.4); Monocytes # 0.7 10^3/uL (0.2-0.9); Monocytes % 6.1 %; Neutrophils % 66.2 %; Nucleated Red Blood Cells % 0 %; Platelet Count 469 10^3/cmm (157-399); Red Blood Count 3.19 10^6/uL (3.85-5.65); Red Cell Distribution Width 14.7 % (12.1-15.1); White Blood Count 10.72 10^3/uL (3.29-11.43)
[2023-09-20 05:59] LABS: C Reactive Protein 115.8 mg/L (0.0-4.9); Phosphorus 3.4 mg/dL (2.5-4.5)
[2023-09-20 06:12] LABS: NT Pro B Type Natriuretic Pept 898 pg/mL (0-450); Procalcitonin 0.67 ng/mL (0-0.5)
[2023-09-20 06:23] LABS: Anion Gap 14.8 (5-19); Blood Urea Nitrogen 26 mg/dL (8-23); Calcium 8.1 mg/dL (8.5-10.5); Carbon Dioxide 27 mmol/L (22-29); Chloride 97 mmol/L (98-107); Creatinine Clr Calc Pharmacy 59.2881; Glucose 220 mg/dL (65-115); Osmolality Calculated 292 mOsm/kg (285-295); Potassium 3.8 mmol/L (3.5-5.1); Slide Review Slide Review Perform; Sodium 135 mmol/L (136-145)
[2023-09-20 06:29] LABS: Glucose Point of Care 229 mg/dL (70-110)
[2023-09-20] MEDS: apixaban 5 mg Tablet 10 MG PO (09:17)
[2023-09-20] MEDS: FUROsemide 10 mg/mL SDV 4mL 40 MG IVP (09:17)
[2023-09-20] MEDS: potassium chloride ER 20 mEq Tablet 40 MEQ PO (09:17)
[2023-09-20] MEDS: insulin lispro 100 unit/1 mL SUBCUT (09:18)
--- NOTE | 2023-09-20 09:54 | PM.DCS ---
Discharge Providers Date of Admission: 09/14/23 14:48 Date of Discharge: September 20, 2023 Attending Provider at Admission: Osmel Tay MD Attending Provider at Discharge: Osmel Tay MD Primary Care Provider: Jas Kc DO Diagnoses at Discharge Discharge Diagnosis (1) Pneumonia: Status: Acute (2) Diabetes: Status: Acute (3) Hypothyroidism: Status: Acute (4) BECKY (acute kidney injury): Status: Acute (5) NSTEMI (non-ST elevated myocardial infarction): Status: Acute (6) Atrial fibrillation with RVR: Status: Acute (7) Pulmonary edema: Status: Acute (8) Fluid overload: Status: Acute (9) Bacteremia due to Streptococcus pneumoniae: Status: Acute (10) CHF exacerbation: Status: Acute (11) Hypoalbuminemia: Status: Acute (12) Acute hypoxic respiratory failure: Status: Acute (13) Pulmonary embolism: Status: Acute (14) Atrial septal aneurysm: Status: Acute (15) Sepsis: Status: Acute Reason for Visit Reason for Visit: weakness, fever Hospital Course Hospital Course Priscila Gallegos is a 82 year old female with a past medical history of type 2 diabetes mellitus, hypothyroidism, essential tremor, GERD, who presents [facility] due to fatigue, malaise, shortness of breath, nonproductive cough. Patient tells me that about a week ago, she was getting out of the shower and she accidentally fell, since then she has had right-sided flank pain, at the level of T12-L1, on the right side, no head trauma no loss of consciousness, no chest pain, no palpitations. She tells me that she is also been exposed to family members that were flu be positive. She tells me for the last week she has had fatigue, malaise, nonproductive cough, wheezing, no fevers, no chills, no nausea, no vomiting, no chest pain, no palpitations Patient presents [facility] for acute hypoxic respiratory failure multifactorial from streptococcal pneumonia, with streptococcal bacteremia with fluid overload and right pulmonary embolism, with A-fib with RVR. Patient had a prolonged hospitalization, for her streptococcal pneumonia and streptococcal bacteremia, her leukocytosis significant improved, remained afebrile repeat blood cultures have been negative, she was managed with IV antibiotics for a total of 5 days, discharged on 5 remaining days of Levaquin. For her fluid overload she received intermittent diuresis during hospitalization, oxygen requirements on discharge is room air. For her pulmonary embolism, with evidence of right heart strain, she received inpatient heparin therapy transition to Eliquis, discharged on Eliquis therapy. For her atrial fibrillation, discharged on Eliquis and metoprolol. Will be discharged with close follow-up with primary care provider, follow-up with pulmonary, follow-up with cardiology. Physical Exam Const: COMMON NORMALS: no acute distress and patient oriented x3 Resp: COMMON NORMALS: normal respiratory effort, No retractions, No use of accessory muscles and clear to auscultation bilaterally AUSCULTATION: clear to auscultation bilaterally Cardio: COMMON NORMALS: regular rate, regular rhythm, S1 normal heart sound present and S2 normal heart sound present RATE: regular rate RHYTHM: regular rhythm HEART SOUNDS: S1 normal heart sound present and S2 normal heart sound present GI: COMMON NORMALS: Normal to inspection, nondistended, normoactive bowel sounds present and non-tender Extremity: COMMON NORMALS: no pedal edema Neuro: COMMON NORMALS: patient oriented x3 Psych: COMMON NORMALS: mental status grossly normal Urinary Catheter Management: Morales: Cath Placed During This Visit: yes Reason for Continuing Indwelling Catheter: Other Urinary Catheter Date of Insertion: 09/15/23 Urinary Catheter Time of Insertion: 16:36 Discharge Data Studies Completed and Pending Completed Studies During Hospitalization Category Date Time Status CT angio chest PE protcl [id number] Routine Cat Scan 09/15/23 09:21 Completed CXRP [XR chest 1V portable [id number]] Routine Exams 09/15/23 15:19 Completed XR chest 1V portable [id number] Routine Exams 09/16/23 07:00 Completed XR chest 1V portable [id number] Stat Exams 09/14/23 11:50 Completed XR chest 1V portable [id number] Stat Exams 09/14/23 21:00 Completed XR lumbar spine 2-3V* [id number] Stat Exams 09/14/23 14:55 Completed XR thoracic spine 2V [id number] Stat Exams 09/14/23 15:11 [place] [id number] Routine Ultrasound 09/15/23 08:12 Completed CV. echo complete* [id number] Routine Ultrasound 09/15/23 08:12 Completed Pending at discharge Category Date Time Status Basic Metabolic Panel AM LABS Lab 09/21/23 04:00 Ordered Blood Culture Stat Lab 09/16/23 07:11 Results C Reactive Protein AM LABS Lab 09/21/23 04:00 Ordered Complete Blood Count w/Auto AM LABS Lab 09/21/23 04:00 Ordered Magnesium AM LABS Lab 09/21/23 04:00 Ordered NT Pro B Type Natriuretic Pept QAM Lab 09/21/23 06:00 Ordered NT Pro B Type Natriuretic Pept QAM Lab 09/22/23 06:00 Ordered Phosphorus AM LABS Lab 09/21/23 04:00 Ordered Procalcitonin AM LABS Lab 09/21/23 04:00 Ordered Sputum Culture and Gram Stain Stat Lab 09/14/23 14:26 Uncollected Radiology Impressions Chest X-Ray 09/16/23 07:00 IMPRESSION: Similar left pleural effusion with left lower lobe consolidation/collapse. Laboratory Results WBC 10.72 10^3/uL (3.29-11.43) 09/20/23 05:26 RBC 3.19 10^6/uL (3.85-5.65) L 09/20/23 05:26 Hgb 9.80 g/dL (11.27-16.99) L 09/20/23 05:26 Hct 30.2 % (36-47) L 09/20/23 05:26 MCV 94.7 fl (85-98) 09/20/23 05:26 MCH 30.7 pg (27-33) 09/20/23 05:26 MCHC 32.5 g/dL (30-55) 09/20/23 05:26 RDW 14.7 % (12.1-15.1) 09/20/23 05:26 Plt Count 469 10^3/cmm (157-399) H D 09/20/23 05:26 MPV 9.5 fL (7.4-10.4) 09/20/23 05:26 Neut % (Auto) 66.2 % 09/20/23 05:26 Lymph % (Auto) 16.7 % 09/20/23 05:26 [place] % (Auto) 6.1 % 09/20/23 05:26 Eos % (Auto) 1.4 % 09/20/23 05:26 Baso % (Auto) 0.5 % 09/20/23 05:26 Neut # (Auto) 7.10 10^3/uL (1.8-7.7) 09/20/23 05:26 Lymph # (Auto) 1.8 10^3/uL (0.8-4.8) 09/20/23 05:26 [place] # (Auto) 0.7 10^3/uL (0.2-0.9) 09/20/23 05:26 Eos # (Auto) 0.2 10^3/uL (0.0-0.8) 09/20/23 05:26 Baso # (Auto) 0.1 10^3/uL (0.0-0.1) 09/20/23 05:26 Nucleated RBC % (auto) 0 % 09/20/23 05:26 Total Counted 100 (0-100) 09/19/23 04:58 Atypical Lymphs % 2.0 % (0-5) 09/19/23 04:58 Absolute Neutrophils 8.1 10^3/cmm (1.4-6.5) H 09/19/23 04:58 Segmented Neutrophils 72 % 09/19/23 04:58 Abs Segm Neuts (Man) 7.9 10/cmm (1.6-7.1) H 09/19/23 04:58 Band Neutrophils 2.0 % 09/19/23 04:58 Abs Band Neuts (Man) 0.2 10^3/cmm (0.0-1.2) 09/19/23 04:58 Absolute Lymphocytes 1.9 10^3/cmm (1.2-3.4) 09/19/23 04:58 Lymphocytes (Manual) 15 % 09/19/23 04:58 Monocytes (Manual) 4.0 % 09/19/23 04:58 Absolute Monocytes 0.4 10^3/cmm (0.1-0.6) 09/19/23 04:58 Eosinophils (Manual) 0 % 09/19/23 04:58 Absolute Eosinophils 0.0 10^3/cmm (0.0-0.7) 09/19/23 04:58 Basophils (Manual) 0.0 % 09/19/23 04:58 Absolute Basophils 0.0 10^3/cmm (0.0-0.2) 09/19/23 04:58 Metamyelocytes 4.0 % 09/19/23 04:58 Myelocytes 1.0 % 09/19/23 04:58 Nucleated RBCs # 0.0 /100WBC 09/20/23 05:26 Platelet Estimate Normal (Normal) 09/19/23 04:58 APTT 60.1 SECONDS (23.9-36.7) H 09/18/23 08:52 D-Dimer 3.72 ug/mLFEU (0-0.59) H 09/15/23 12:23 Specimen Type Arterial 09/14/23 00:18 Sample Site Brachial, right 09/14/23 00:18 ABG pH 7.43 (7.35-7.45) 09/14/23 00:18 ABG pCO2 29.2 mmHg (35-45) L 09/14/23 00:18 ABG pO2 62.8 mmHg (80.0-100.0) L 09/14/23 00:18 ABG HCO3 19.1 mmol/L (22-26) L 09/14/23 00:18 ABG Base Excess -4.3 mmol/L (-2.0-2.0) L 09/14/23 00:18 Dustin Test N/a 09/14/23 00:18 Hematocrit 35.3 % (37-47) L 09/14/23 00:18 O2 Delivery Device Nc 09/14/23 00:18 O2 Liters/Min 3.0 % 09/14/23 00:18 [employer] Inside ID [email or web address] 09/14/23 00:18 Sodium 135 mmol/L (136-145) L 09/20/23 05:26 Potassium 3.8 mmol/L (3.5-5.1) 09/20/23 05:26 Chloride 97 mmol/L (98-107) L 09/20/23 05:26 Carbon Dioxide 27 mmol/L (22-29) 09/20/23 05:26 Anion Gap 14.8 (5-19) 09/20/23 05:26 BUN 26 mg/dL (8-23) H 09/20/23 05:26 Creatinine 0.9 mg/dL (0.5-0.9) 09/20/23 05:26 GFR Calculation Not Reportable 09/20/23 05:26 Glucose 220 mg/dL (65-115) H 09/20/23 05:26 POC Glucose 229 mg/dL (70-110) H 09/20/23 06:25 Estimat Average Glucose 134 09/14/23 12:57 Hemoglobin A1c 6.3 % (4.0-6.0) H 09/14/23 12:57 Calculated Osmolality 292 mOsm/kg (285-295) 09/20/23 05:26 Lactic Acid 1.7 mmol/L (0.5-2.2) 09/14/23 12:57 Calcium 8.1 mg/dL (8.5-10.5) L 09/20/23 05:26 Phosphorus 3.4 mg/dL (2.5-4.5) 09/20/23 05:26 Magnesium 2.0 mg/dL (1.7-2.3) 09/20/23 05:26 Total Bilirubin 0.5 mg/dL (0.15-1.2) 09/18/23 02:47 AST 39 U/L (0-32) H 09/18/23 02:47 ALT 41 U/L (0-33) H 09/18/23 02:47 Alkaline Phosphatase 73 U/L (35-105) 09/18/23 02:47 Troponin T Baseline 21 ng/L (0-10) H 09/15/23 12:23 Troponin T 120 Minute 22.13 ng/L (0-10) H 09/15/23 14:17 Delta Troponin T 1.13 ABS# (0-10) 09/15/23 14:17 Troponin T Hi Sens 6Hr 24.23 ng/L (0-10) H 09/15/23 18:50 Troponin T Hi Sens 6Hr Delta 3.23 ng/L (0-12) 09/15/23 18:50 C-Reactive Protein 115.8 mg/L (0.0-4.9) H 09/20/23 05:26 NT-Pro-B Natriuret Pep 898 pg/mL (0-450) H 09/20/23 05:26 Total Protein 5.6 g/dL (6.6-8.7) L 09/18/23 02:47 Albumin 2.4 g/dL (3.5-5.2) L 09/18/23 02:47 Globulin 3.2 g/dL (1.3-4.6) 09/18/23 02:47 Procalcitonin 0.67 ng/mL (0-0.5) H 09/20/23 05:26 TSH 1.94 uIU/mL (0.27-4.20) 09/14/23 12:57 Urine Color Yellow (Yellow) 09/16/23 00:40 Urine Appearance Hazy (CLEAR) A 09/16/23 00:40 Urine pH 5 (5-7) 09/16/23 00:40 Ur Specific [place] 1.010 (1.005-1.030) 09/16/23 00:40 Urine Protein 1+ (Negative) H 09/16/23 00:40 Urine Glucose (UA) Norm (Normal) 09/16/23 00:40 Urine Ketones Negative (Negative) 09/16/23 00:40 Urine Blood 2+ (Negative) H 09/16/23 00:40 Urine Nitrate Negative (Negative) 09/16/23 00:40 Urine Bilirubin Neg (Negative) 09/16/23 00:40 Urine Urobilinogen Neg mg/dL (Negative) 09/16/23 00:40 Ur Leukocyte Esterase Negative (Negative) 09/16/23 00:40 Urine RBC 0-4 /hpf (0-2) H 09/16/23 00:40 Urine WBC 5-10 /hpf (0-5) H 09/16/23 00:40 Ur Squamous Epith Cells 0-4 /hpf (0-5) H 09/16/23 00:40 Amorphous Sediment 1+ /hpf 09/16/23 00:40 Urine Bacteria 2+ /hpf (NONE) H 09/16/23 00:40 Adenovirus (PCR) Not detected (NOT DETECT) 09/14/23 18:56 C. pneumoniae DNA (PCR) Not detected (NOT DETECT) 09/14/23 18:56 Coronavirus 229E (PCR) Not detected (NOT DETECT) 09/14/23 18:56 Human Metapneumovir PCR Not detected (NOT DETECT) 09/14/23 18:56 Influenza A (H1) PCR Not detected (NOT DETECT) 09/14/23 18:56 Influ A (H1/09) PCR Not detected (NOT DETECT) 09/14/23 18:56 Influenza A (H3) PCR Not detected (NOT DETECT) 09/14/23 18:56 Influenza Type A Ag negative (Negative) 09/14/23 13:34 Influenza Type A (PCR) Not detected (NOT DETECT) 09/14/23 18:56 Influenza Type B Ag negative (Negative) 09/14/23 13:34 Influenza Type B (PCR) Not detected (NOT DETECT) 09/14/23 18:56 M. pneumoniae (PCR) Not detected (NOT DETECT) 09/14/23 18:56 Parainfluenza 1 (PCR) Not detected (NOT DETECT) 09/14/23 18:56 Parainfluenza 2 (PCR) Not detected (NOT DETECT) 09/14/23 18:56 Parainfluenza 3 (PCR) Not detected (NOT DETECT) 09/14/23 18:56 Parainfluenza 4 (PCR) Not detected (NOT DETECT) 09/14/23 18:56 RSV Type A (PCR) Not detected (NOT DETECT) 09/14/23 18:56 RSV Type B (PCR) Not detected (NOT DETECT) 09/14/23 18:56 Entero/Rhino (PCR) Not detected (NOT DETECT) 09/14/23 18:56 SARS-CoV-2 (PCR) Not detected (NOT DETECT) 09/14/23 18:56 SARS-CoV-2 Ag (Rapid) negative (Negative) 09/14/23 13:34 Vitals Last Vital Signs Temp 98.3 F 09/20/23 09:22 Pulse 73 09/20/23 09:22 Resp 15 09/20/23 09:22 BP 144/75 09/20/23 09:22 Pulse Ox 96 09/20/23 09:22 O2 Del Method Room Air 09/20/23 09:22 O2 Flow Rate 2 09/19/23 13:33 FiO2 30 09/15/23 03:30 Discharge Plan Discharge Patient Disposition: Home Condition: Stable Prescriptions: New metoprolol tartrate 50 mg Tablet 50 mg PO Q12H 30 Days Qty: 60 0RF Eliquis 5 mg tablet See Rx Instructions .ROUTE .COMPLEX Qty: 70 0RF Rx Instructions: 10mg (2 tabs) bid for 5 days them 5mg ( 1 tab) BID thereafter levofloxacin 750 mg tablet 750 mg PO DAILY 5 Days Qty: 5 0RF insulin aspart U-100 [Novolog FlexPen U-100 Insulin] 100 unit/mL (3 mL) insulin pen See Rx Instructions .ROUTE .COMPLEX Qty: 15 0RF Rx Instructions: Inject, subcut, 3 times daily, after meals, based on sliding scale provided Continued (DME) OneTouch Ultra Test Strip See Rx Instructions .Route Rx Instructions: As directed Multivitamin Women 50 Plus 8 mg iron-400 mcg-300 mcg Tablet 1 tab PO QAM primidone 50 mg tablet 50 mg PO DAILY PRN (Reason: tremor) acetaminophen 500 mg tablet 1,000 mg PO Q8H PRN (Reason: Pain) pantoprazole 40 mg tablet,delayed release (DR/EC) 40 mg PO DAILY cholecalciferol (vitamin D3) 25 mcg (1,000 unit) tablet 1,000 unit PO QAM levothyroxine 75 mcg capsule 75 mcg PO QAM Discontinued celecoxib 200 mg capsule 200 mg PO BID Discharge Orders: Discharge Order (Routine); Ordered 09/20/23 Ordered By: Osmel Tay Other Ambulatory Orders: DME: [facility] (Order) Location: None Selected Ordered By: Osmel Tay DME: [facility] (Order) Location: None Selected Ordered By: Osmel Tay Referrals: Ana LuisarRashaun MD [Physician] - 3 weeks (We have notified your physician's clinic of the need for a follow-up appointment to be scheduled. If you have not heard from them within the next 2 business days, please call them directly. ) Radhames Gould M.D [Physician] - 2 weeks (We have notified your physician's clinic of the need for a follow-up appointment to be scheduled. If you have not heard from them within the next 2 business days, please call them directly. ) Jas Kc, [Primary Care Provider] - (We have notified your physician's clinic of the need for a follow-up appointment to be scheduled. If you have not heard from them within the next 2 business days, please call them directly. ) Discharge Diet: Cardiac Discharge Activity: Resume usual activity Patient Instructions: Opioid Safety, Pain Management Activity Restrictions/Additional Instructions: - Please ambulate with care, ? Please follow-up with cardiology -please follow up with pulmonary -i have discharged on Eliquis which is a strong blood thinner, if you develop bloody or black stools or any have any significant trauma to go to emergency room ?Please monitor your blood sugars closely -Monitor your blood sugars 3 times daily as after meals -Please record your blood sugars, and a blood sugar log -For your NovoLog -Please inject blood sugar after meals based on sliding scale provided -Do not inject insulin if you do not eat as hypoglycemia kills -This is a NovoLog sliding scale -Insulin sliding ?fingerstick? Insulin ?141-180?0 units/sq 181-220?2 units/sq ?221-260?4 units/sq ?261-300 6 units/sq ?301-350?8 units/sq ?351-400 10 units/sq ?401-450?12 units/sq >450? 14units/sq -If your blood sugar is greater than 500 go to the emergency room -If your blood sugar is less than 60 or at anytime you feel lightheaded or dizzy or diaphoretic or have chest palpitations check your blood sugar, and eat a hard candy or drink orange juice and go immediately to the emergency room -Remember hypoglycemia kills, so if his blood sugar is less than 60 we have to increase it by taking in a sugary meal such as a hard candy or orange juice and go to the emergency room -If you have any questions please call us where here to help Discharge Attestations Time Spent in Discharge Care*: greater than 30 min Quality Metrics Clinical Quality Measures [ No reported AMI, CVA or VTE this stay] Coding Level of Care Code 08934 Total time (in minutes) for Discharge: 45 Diagnoses Pneumonia J18.9 Diabetes E11.9 Hypothyroidism E03.9 BECKY (acute kidney injury) N17.9 NSTEMI (non-ST elevated myocardial infarction) I21.4 Atrial fibrillation with RVR I48.91 Pulmonary edema J81.1 Fluid overload E87.70 Bacteremia due to Streptococcus pneumoniae R78.81; B95.3 CHF exacerbation I50.9 Hypoalbuminemia E88.09 Acute hypoxic respiratory failure J96.01 Pulmonary embolism I26.99 Atrial septal aneurysm I25.3 Sepsis A41.9
[2023-09-20 11:03] LABS: Glucose Point of Care 146 mg/dL (70-110)
--- NOTE | 2023-09-21 09:59 | PC.NURSE ---
I received a call from patient's step-son, Pascual Amaro, inquiring about patient's aftercare . He states that patient might get confused when explaining discharge instructions and he wants to know before he goes to speak with her. I reviewed PHI and he was not listed. I explained this to him and he verbalizes understanding. I informed him that if he would call when he was with patient, she could provide verbal consent for us to share information. He is in agreement with this plan and denies further questions or concerns.
== END 2023-09-20 12:15 | disposition home or self-care (01) | DRG 871 ==
LOC: ER 14:37 → MEDSURG 16:31
PROVIDERS: Emergency Medicine; Physician Assistant Surgical; Student in an Organized Health Care Education/Training Program; Admitting Provider Family Medicine; Emergency Provider Family Medicine; PCP Family Medicine; Visit Provider Family Medicine
DX: A40.3 Sepsis due to Streptococcus pneumoniae (principal); I21.A1 Myocardial infarction type 2; I26.93 Single subsegmental thrombotic pulmonary embolism without acute cor pulmonale; J13 Pneumonia due to Streptococcus pneumoniae; J96.01 Acute respiratory failure with hypoxia; I50.21 Acute systolic (congestive) heart failure; N17.9 Acute kidney failure, unspecified; I25.3 Aneurysm of heart; W18.2XXA Fall in (into) shower or empty bathtub, initial encounter; Z11.52 Encounter for screening for COVID-19; E11.9 Type 2 diabetes mellitus without complications; E03.9 Hypothyroidism, unspecified; G25.0 Essential tremor; K21.9 Gastro-esophageal reflux disease without esophagitis; I48.91 Unspecified atrial fibrillation; E87.70 Fluid overload, unspecified; E88.09 Other disorders of plasma-protein metabolism, not elsewhere classified
CPT/HCPCS: 36415; 36416; 36573; 36592; 36600; 51702; 71045; 71275; 72070; 72100; 80048; 80053; 81001; 82803; 82962; 83036; 83605; 83735; 83880; 84100; 84145; 84443; 84484; 85007; 85025; 85378; 85730; 86140; 87040; 87086; 87150; 87186; 87205; 87426; 87486; 87581; 87633; 87804; 93005; 93306; 93970; 94640; 94660; 94664; 94760; 96360; 96372; 97110; 97116; 97162; 97165; 97530; 97535; 99285; C1751; C9113; J0456; J0696; J1644; J1650; J1815; J1940; J2270; J3480; J7030; J7050; P9046; Q0144; Q9967

== ENCOUNTER → 2023-10-02 12:26 | Outpatient (BNVA) | payer MEDICARE, OTHER, SELFPAY | PROVIDERS: PCP Family Medicine; Visit Provider Family Medicine | DX: I26.99 Other pulmonary embolism without acute cor pulmonale (principal); E11.9 Type 2 diabetes mellitus without complications; J98.4 Other disorders of lung; R07.81 Pleurodynia; R60.9 Edema, unspecified | CPT/HCPCS: 80053; 85025 ==

== ENCOUNTER → 2023-10-17 12:35 | Outpatient (BNVA) | payer MEDICARE, OTHER, SELFPAY | PROVIDERS: PCP Family Medicine; Visit Provider Family Medicine | DX: I26.99 Other pulmonary embolism without acute cor pulmonale (principal); E11.9 Type 2 diabetes mellitus without complications | CPT/HCPCS: 80053; 85025 ==

== ENCOUNTER → 2023-11-30 13:11 | Outpatient (BNVA) | payer MEDICARE, OTHER, SELFPAY | PROVIDERS: PCP Family Medicine; Visit Provider Internal Medicine | DX: R07.81 Pleurodynia (principal); I48.91 Unspecified atrial fibrillation; I25.3 Aneurysm of heart; I26.99 Other pulmonary embolism without acute cor pulmonale; I10 Essential (primary) hypertension; Z09 Encounter for follow-up examination after completed treatment for conditions other than malignant neoplasm; I89.1 Lymphangitis; R94.31 Abnormal electrocardiogram [ECG] [EKG] | CPT/HCPCS: 93005; 99204 ==

== ENCOUNTER 2023-12-13 08:41 | Outpatient (CLI) | payer MEDICARE, OTHER, SELFPAY ==
--- NOTE | 2023-12-13 09:34 | MM_ITS ---
WS: [id number] SCREENING DIGITAL TOMOSYNTHESIS MAMMOGRAM WITH CAD HISTORY: SCREEN COMPARISON: 12/06/2022, 12/01/2021 and 10/12/2020 Bilateral CC and MLO with tomosynthesis views submitted. Synthetic mammography reviewed. Computer aid ed detection analyzed. Breast composition: There are scattered areas of fibroglandular density. No suspicious masses, microc alcifications or architectural distortion. No change in the asymmetry in the anterior LEFT breast. Be nign calcification RIGHT breast. MM/[place] [id number] IMPRESSION: BI-RADS: 2-Benign FOLLOW UP: 1 Year Follow-up
== END 2023-12-13 08:42 | disposition home or self-care (01) ==
LOC: RAD 08:41
PROVIDERS: PCP Family Medicine; Visit Provider Family Medicine
DX: Z12.31 Encounter for screening mammogram for malignant neoplasm of breast (principal); R92.323 Mammographic fibroglandular density, bilateral breasts; R92.1 Mammographic calcification found on diagnostic imaging of breast
CPT/HCPCS: 77063; 77067

== ENCOUNTER → 2024-01-05 16:50 | Outpatient (BNVA) | payer MEDICARE, OTHER, SELFPAY | PROVIDERS: PCP Family Medicine; Visit Provider Family Medicine | DX: R05.9 Cough, unspecified (principal); J18.9 Pneumonia, unspecified organism; R09.81 Nasal congestion | CPT/HCPCS: 87426 ==

== ENCOUNTER → 2024-02-27 12:39 | Outpatient (BNVA) | payer MEDICARE, OTHER, SELFPAY | PROVIDERS: PCP Family Medicine; Visit Provider Family Medicine | DX: I10 Essential (primary) hypertension (principal); E11.9 Type 2 diabetes mellitus without complications; E03.9 Hypothyroidism, unspecified; I25.3 Aneurysm of heart; I26.99 Other pulmonary embolism without acute cor pulmonale | CPT/HCPCS: 80053; 82607; 83036; 84443; 85025 ==

== ENCOUNTER → 2024-04-11 08:35 | Outpatient (BNVA) | payer MEDICARE, OTHER, SELFPAY | PROVIDERS: PCP Family Medicine; Visit Provider Family Medicine | DX: E03.9 Hypothyroidism, unspecified (principal) | CPT/HCPCS: 84443 ==

== ENCOUNTER 2024-06-05 08:35 | Outpatient (CLI) | payer MEDICARE, OTHER, SELFPAY | END 2024-06-05 08:36 | disposition home or self-care (01) | LOC: LAB 08:37 | PROVIDERS: PCP Family Medicine; Visit Provider Family Medicine | DX: E03.9 Hypothyroidism, unspecified (principal) | CPT/HCPCS: 36415; 84443 ==

== ENCOUNTER 2024-08-19 08:03 | Outpatient (CLI) | payer MEDICARE, OTHER, SELFPAY ==
[2024-08-19 08:21] LABS: Basophils % 0.7 %; Eosinophils # 0.1 10^3/uL (0.0-0.8); Eosinophils % 1.9 %; Hematocrit 35.8 % (36-47); Lymphocytes # 1.9 10^3/uL (0.8-4.8); Lymphocytes % 32.4 %; Mean Corpuscular HGB Conc 31.6 g/dL (30-55); Mean Platelet Volume 10.1 fL (7.4-10.4); Monocytes # 0.4 10^3/uL (0.2-0.9); Monocytes % 6.9 %; Neutrophils # 3.35 10^3/uL (1.8-7.7); Neutrophils % 57.6 %; Nucleated Red Blood Cells % 0 %; Platelet Count 218 10^3/cmm (157-399); Red Blood Count 3.77 10^6/uL (3.85-5.65); Red Cell Distribution Width 13.5 % (12.1-15.1); White Blood Count 5.81 10^3/uL (3.29-11.43)
[2024-08-19 08:45] LABS: Estmated Average Glucose 143; Hemoglobin A1C 6.6 % (4.0-6.0)
[2024-08-19 08:46] LABS: Chol HDL Ratio 4.17 mg/dL (0.0-4.40); Cholesterol 217 mg/dL (0-200); HDL Cholesterol 52 mg/dL (60-100); LDL Cholesterol Calculated 138 mg/dL (50-129); LDL HDL Ratio 2.65 RATIO (0.00-3.22); Triglycerides 137 mg/dL (0-150)
[2024-08-19 09:05] LABS: Alanine Aminotransferase 12 U/L (0-33); Albumin Level 4.2 g/dL (3.5-5.2); Alkaline Phosphatase 59 U/L (35-105); Aspartate Amino Transferase 15 U/L (0-32); Blood Urea Nitrogen 21 mg/dL (8-23); Calcium 9.1 mg/dL (8.5-10.5); Carbon Dioxide 27 mmol/L (22-29); Chloride 105 mmol/L (98-107); Globulin 2.8 g/dL (1.3-4.6); Glucose 119 mg/dL (65-115); Osmolality Calculated 296 mOsm/kg (285-295); Sodium 141 mmol/L (136-145); Thyroid Stimulating Hormone 3.67 uIU/mL (0.27-4.20); Total Bilirubin 0.3 mg/dL (0.15-1.2); Vitamin B12 1000 pg/mL (232-1245)
== END 2024-08-19 08:04 | disposition home or self-care (01) ==
LOC: LAB 08:06
PROVIDERS: PCP Family Medicine; Visit Provider Family Medicine
DX: I10 Essential (primary) hypertension (principal); E03.9 Hypothyroidism, unspecified; I48.91 Unspecified atrial fibrillation; E11.9 Type 2 diabetes mellitus without complications; J98.4 Other disorders of lung; J22 Unspecified acute lower respiratory infection
CPT/HCPCS: 36415; 80053; 80061; 82607; 83036; 84443; 85025

== ENCOUNTER → 2024-09-04 08:53 | Outpatient (BNVA) | payer MEDICARE, OTHER, SELFPAY | PROVIDERS: PCP Family Medicine; Visit Provider Family Medicine | DX: Z13.6 Encounter for screening for cardiovascular disorders (principal) | CPT/HCPCS: 80061; 82947; 83036 ==

== ENCOUNTER → 2024-10-02 12:47 | Outpatient (BNVA) | payer MEDICARE, OTHER, SELFPAY | PROVIDERS: PCP Family Medicine; Visit Provider Internal Medicine Cardiovascular Disease | DX: I48.91 Unspecified atrial fibrillation (principal); G25.0 Essential tremor; Z86.711 Personal history of pulmonary embolism; Q21.10 Atrial septal defect, unspecified; R26.81 Unsteadiness on feet | CPT/HCPCS: 99214 ==

== ENCOUNTER 2024-12-13 08:47 | Outpatient (CLI) | payer MEDICARE, OTHER, SELFPAY ==
--- NOTE | 2024-12-13 08:51 | MM_ITS ---
WS: [id number] BILATERAL SCREENING DIGITAL TOMOSYNTHESIS MAMMOGRAM WITH CAD HISTORY: SCREENING COMPARISON: 12/13/2023 and 12/06/2022 Bilateral CC and MLO views with tomosynthesis and synthetic mammography submitted. Computer aided detection analyzed. Breast composition: The breasts are heterogeneously dense, which may obscure small masses. No suspicious masses, microcalcifications or architectural distortion. Benign calcification anterior RIGHT breast. MM/MM scr BI tomosynthesis [id number] IMPRESSION: BI-RADS: 2 - Benign. FOLLOW UP: 1 Year Follow-up
== END 2024-12-13 08:48 | disposition home or self-care (01) ==
LOC: RAD 08:48
PROVIDERS: PCP Family Medicine; Visit Provider Family Medicine
DX: Z12.31 Encounter for screening mammogram for malignant neoplasm of breast (principal); R92.333 Mammographic heterogeneous density, bilateral breasts; R92.1 Mammographic calcification found on diagnostic imaging of breast
CPT/HCPCS: 77063; 77067

== ENCOUNTER 2025-01-02 08:29 | Outpatient (CLI) | payer MEDICARE, OTHER, SELFPAY ==
[2025-01-02 09:24] LABS: Basophils % 0.7 %; Eosinophils # 0.2 10^3/uL (0.0-0.8); Eosinophils % 3.1 %; Hematocrit 36.4 % (36-47); Lymphocytes # 1.9 10^3/uL (0.8-4.8); Lymphocytes % 35.3 %; Mean Corpuscular HGB Conc 32.4 g/dL (30-55); Mean Corpuscular Volume 95.5 fl (85-98); Mean Platelet Volume 10.5 fL (7.4-10.4); Monocytes # 0.5 10^3/uL (0.2-0.9); Monocytes % 8.8 %; Neutrophils # 2.81 10^3/uL (1.8-7.7); Neutrophils % 51.7 %; Nucleated Red Blood Cells % 0 %; Platelet Count 206 10^3/cmm (157-399); Red Blood Count 3.81 10^6/uL (3.85-5.65); Red Cell Distribution Width 13.5 % (12.1-15.1); White Blood Count 5.44 10^3/uL (3.29-11.43)
[2025-01-02 09:41] LABS: Estmated Average Glucose 148; Hemoglobin A1C 6.8 % (4.0-6.0)
[2025-01-02 09:54] LABS: Alanine Aminotransferase 14 U/L (0-33); Albumin Level 4.2 g/dL (3.5-5.2); Alkaline Phosphatase 53 U/L (35-105); Anion Gap 15.2 (5-19); Aspartate Amino Transferase 20 U/L (0-32); Blood Urea Nitrogen 21 mg/dL (8-23); Carbon Dioxide 27 mmol/L (22-29); Chloride 103 mmol/L (98-107); Chol HDL Ratio 4.51 mg/dL (0.0-4.40); Cholesterol 203 mg/dL (0-200); Glucose 134 mg/dL (65-115); HDL Cholesterol 45 mg/dL (60-100); LDL Cholesterol Calculated 130 mg/dL (50-129); Osmolality Calculated 297 mOsm/kg (285-295); Potassium 4.2 mmol/L (3.5-5.1); Sodium 141 mmol/L (136-145); Thyroid Stimulating Hormone 2.99 uIU/mL (0.27-4.20); Total Bilirubin 0.3 mg/dL (0.15-1.2); Total Protein 7.2 g/dL (6.6-8.7); Triglycerides 142 mg/dL (0-150); VLDL Cholestrol Calculation 28 mg/dL (0-30)
== END 2025-01-02 08:30 | disposition home or self-care (01) ==
PROVIDERS: PCP Family Medicine; Visit Provider Family Medicine
DX: I10 Essential (primary) hypertension (principal); E11.9 Type 2 diabetes mellitus without complications; E03.9 Hypothyroidism, unspecified
CPT/HCPCS: 36415; 80053; 80061; 83036; 84443; 85025

== ENCOUNTER → 2025-04-02 13:38 | Outpatient (BNVA) | payer MEDICARE, SELFPAY | PROVIDERS: PCP Family Medicine; Visit Provider Internal Medicine Cardiovascular Disease | DX: I48.91 Unspecified atrial fibrillation (principal); I25.3 Aneurysm of heart; I26.99 Other pulmonary embolism without acute cor pulmonale; I10 Essential (primary) hypertension | CPT/HCPCS: 99213 ==

== ENCOUNTER → 2025-04-15 11:17 | Outpatient (BNVA) | payer MEDICARE, SELFPAY | PROVIDERS: PCP Family Medicine; Visit Provider Family Medicine | DX: I10 Essential (primary) hypertension (principal); I48.91 Unspecified atrial fibrillation; E11.9 Type 2 diabetes mellitus without complications; E03.9 Hypothyroidism, unspecified; R25.1 Tremor, unspecified; R60.9 Edema, unspecified | CPT/HCPCS: 80053; 80061; 82607; 83036; 84443; 85025 ==